=== PATIENT | female | born 1965 | race Caucasian/White ===

== ENCOUNTER 2017-11-02 01:15 | Observation (INO) ==
[2017-11-02] MEDS ORDERED: Acetaminophen 325 MG TABLET PO PRN (04:24)
[2017-11-02] MEDS ORDERED: Ondansetron ODT 4 MG TAB.RAPDIS SL PRN (04:24)
[2017-11-02] MEDS ORDERED: Naloxone 0.4 MG/ML INJ IVP PRN (04:24)
[2017-11-02] MEDS ORDERED: *HR* Dextrose 50 % in Water (Syg) 50 ML SYRINGE IVP PRN (04:28)
[2017-11-02] MEDS ORDERED: Dextrose Gel 15 GM/37.5 ML TUBE PO PRN ×2 (04:28)
[2017-11-02] MEDS ORDERED: D5% in Water 1,000 ML IVC PRN (04:28)
[2017-11-02] MEDS ORDERED: dilTIAZem HCl 100 MG in D5% in Water 50 ML IVC SCH (04:30)
[2017-11-02] MEDS ORDERED: *HR* OxyCODONE/APAP 10/325 TABLET PO PRN ×2 (04:37→09:23)
--- NOTE | 2017-11-02 04:41 | Internal Med History&Physical ---
<Nicanor Blum - Last Filed: 11/02/17 05:33> Date of Encounter: 11/02/17 Time of Encounter: 04:00 Assessment and Plan (1) Atrial fibrillation with RVR Current visit: Yes Status: Acute Pt has history of atrial fibrillation on Sotalol 80mg BID, patient reports she stopped taking 1 week ago. Initial troponin negative, trending. ECG shows afib with rvr average rate in the 140s prior to initiation of cardizem drip. Received loading dose and titration at [facility], continued at [facility] at 20mg/hr, currently heart rate in the low 100s. Continue Cardizem drip gtt 20mg/hr. Adding Toprol 25mg po daily. Continuing pt' s Xarelto 5mg BID. Consult to Cardiology appreciated. (2) Coronary artery disease Current visit: No Status: Acute TN/stent 3 years ago. Continue statin, asa, denies taking bb or aniyah-i. Qualifiers: Coronary Disease-Associated Artery/Lesion type: [place] artery [place] vs. transplanted heart: [place] heart Associated angina: without angina Qualified Code(s): I25.10 - Atherosclerotic heart disease of [place] coronary artery without angina pectoris (3) Diabetes mellitus Current visit: No Status: Chronic ACHS+SSI Qualifiers: Diabetes mellitus type: type 2 Diabetes mellitus complication status: with kidney complications Diabetes mellitus complication detail: with chronic kidney disease Diabetes mellitus marine oil terminal superintendent insulin use: with [facility] use Chronic kidney disease stage: stage 3 (moderate) Qualified Code(s): E11.22 - Type 2 diabetes mellitus with diabetic chronic kidney disease; N18.3 - Chronic kidney disease, stage 3 (moderate); N18.3 - Chronic kidney disease, stage 3 ( moderate); Z79.4 - skilled nursing (current) use of insulin; Z79.4 - skilled nursing ( current) use of insulin; Z79.4 - skilled nursing (current) use of insulin; Z79.4 - skilled nursing (current) use of insulin (4) Essential hypertension Current visit: No Status: Chronic Denies use of bb. Will start Toprol 25mg po daily. (5) DVT prophylaxis Current visit: Yes Status: Acute Taking Xarelto 5mg BID. Internal Medicine - H&P: HPI Chief complaint: Palpitations Admitted From: Emergency Dept Plans for Post Hospital Care: Home History of present illness: Ms. Bach is a 52 year old female limited historian who presents to [facility] as a [facility] transfer after experiencing chest tightness, jaw/back radiation and palpitations at home last night 11/01/17. Patient has a history of afib on Sotalol and Xarelto, HTN, CAD with TN/stenting placed 3 years ago, hypothyroidism, and insulin dependent type 2 diabetes. Initial troponin negative , ECG showed atrial fibrillation at a rate of 140s, Cardizem titrated to 15mg/ hr at [facility], continued upon transfer to [facility] (pt's follows Cardiology here), patient's heart rate has been in the low 100s on 20mg/hr. Pt states prior to this episode, she has been taking Sotalol 80mg BID. Stopped 1 week ago stating "I was told by a doctor my flutters could become afib." Currently patient reports milder symptoms of chest tightness and palpitations, no difficulty breathing, mild cough. Past Med Surg Social Fam HX - Past Medical History Medical history: arthritis, atrial fibrillation, CHF, COPD, coronary artery disease, diabetes, GERD, hyperlipidemia, hypertension, thyroid disease Psychiatric history: no psych history - Past Surgical History Surgical History: angioplasty/stent, cholecystectomy - Social History Smoking Status: Current every day smoker Smokeless Tobacco Status: No Alcohol use: none Drug use: none - Family History Mother Living Status: Hx Family Endocrine Disorder: Yes (DM) Father Living Status: Hx Family Respiratory Disorders: Yes (emphysema) Internal Medicine - H&P: Meds Aspirin 81 mg PO DAILY 09/13/16 [History] Atorvastatin [Lipitor] 40 mg PO HS 09/13/16 [History] Cholecalciferol (Vitamin D3) [Vitamin D3] 20,000 unit PO 2XW 09/13/16 [History] Cholestyramine 4 gm PO DAILY 09/13/16 [History] Furosemide [Lasix] 40 mg PO BID 09/13/16 [History] Gabapentin [Neurontin] 800 mg PO TID 09/13/16 [History] Levothyroxine [Synthroid] 25 mcg PO DAILY 09/13/16 [History] Magnesium Oxide [Magnesium] 250 mg PO DAILY 09/13/16 [History] [place]-3/Dha/Epa/Fish Oil [Fish Oil 1,000 mg Softgel] 1 each PO DAILY 09/13/16 [ History] Omeprazole [PriLOSEC] 40 mg PO BID 09/13/16 [History] Oxycodone HCl/Acetaminophen [Percocet 10-325 mg Tablet] 1 each PO BID PRN [History] amLODIPine [Norvasc] 5 mg PO DAILY 09/13/16 [History] Allopurinol [Zyloprim 100 MG] 100 mg PO DAILY 11/02/17 [History] Apixaban [Eliquis] 5 mg PO BID 11/02/17 [History] Dicyclomine [Bentyl] 10 mg PO BID 11/02/17 [History] Fluticasone/Vilanterol [Breo Ellipta 100-25 Mcg INH] 1 puff IH DAILY 11/02/17 [ History] Insulin Glargine [Lantus] 30 unit SQ HS 11/02/17 [History] Insulin LISPRO [HumaLOG] 10 units SQ TIDWM 11/02/17 [History] Potassium Chloride [Klor-Con 10] 10 meq PO BID 11/02/17 [History] hydroCHLOROthiazide [Hydrochlorothiazide] 25 mg PO DAILY 11/02/17 [History] 3 Allergy/AdvReac Type Severity Reaction Status Date / Time Penicillins [PCN] AdvReac Hives Verified 09/13/16 12:30 sulfamethoxazole AdvReac Hives Verified 09/13/16 12:30 [From Bactrim] trimethoprim [From Bactrim] AdvReac Hives Verified 09/13/16 12:30 All Systems PM: A 10-system review of systems was performed and is negative for pertinent findings except as documented above in the HPI. - Constitutional General appearance: Present: A&O X 3, no acute distress - Head Head exam: Present: atraumatic - Eye Eye exam: Present: EOMI - Respiratory Respiratory exam: Present: CTAB - Cardiovascular Cardiovascular exam: Present: irregular rhythm, tachycardia. Absent: JVD - Neurological Exam Neurological exam: Present: no focal deficits - Skin Skin exam: Absent: petechiae Internal Med - H&P Results - Labs CBC & Chem 7: 11/02/17 04:49 11/02/17 04:49 <Barry Montaño - Last Filed: 11/02/17 07:02> Date of Encounter: 01/10/18 Internal Medicine - H&P: HPI History of present illness: Ms. Bach is a 52 year old female All Systems PM: A 10-system review of systems was performed and is negative for pertinent findings except as documented above in the HPI. - Constitutional Vitals: Temp Pulse Resp BP Pulse Ox 97.6 F 96 22 144/74 89 11/02/17 05:31 11/02/17 05:31 11/02/17 05:31 11/02/17 05:31 11/02/17 05:31 Internal Med - H&P Results - Labs CBC & Chem 7: 11/02/17 04:49 11/02/17 04:49 Labs: Short CBC 11/02/17 Range/Units 04:49 WBC 10.1 (4.3-11.1) K/mcL Hgb 12.5 (11.5-15.4) g/dL Hct 39.0 (35.3-44.9) % Plt Count 330 (140-400) K/mcL Neutrophils # 5.6 (1.6-8.9) K/mcL BMP 11/02/17 04:49 Sodium 138 Potassium 4.8 Chloride 109 H Carbon Dioxide 25 BUN 33 H Creatinine 1.37 H Glucose 194 H Calcium 8.7 Cardiac Enzymes 11/02/17 Range/Units 04:35 Troponin I 0.03 (< 0.04) ng/mL - Attending Attestation I have seen and examined pt independently. I have discussed with Resident physician Dr Bulm regarding the management plan. Agree with the documentation.
[2017-11-02 05:06] LABS: Basophils # 0.1 K/mcL (0.0-0.2); Basophils % 0.6 %; Eosinophils # 0.2 K/mcL (0.0-0.6); Hemoglobin 12.5 g/dL (11.5-15.4); Immature Granulocytes % 0.7 % (0-4); Lymphocytes # 3.3 K/mcL (0.6-4.6); Lymphocytes % 32.1 %; Mean Corpuscular HGB Conc 32.1 g/dL (31.6-35.5); Mean Corpuscular Hemoglobin 28.9 pg (28.0-33.3); Mean Corpuscular Volume 90.3 fL (83.0-100.0); Monocytes # 0.9 K/mcL (0.0-1.3); Monocytes % 9.1 %; Neutrophils # 5.6 K/mcL (1.6-8.9); Platelet Count 330 K/mcL (140-400); Red Blood Count 4.32 M/mcL (3.82-4.97); Segmented Neutrophils % 55.5 %
[2017-11-02 05:19] LABS: Calcium 8.7 mg/dL (8.6-10.3); Magnesium 1.6 mg/dL (1.6-2.6); Potassium 4.8 mEq/L (3.5-5.1)
[2017-11-02 05:28] LABS: Hemoglobin A1C 9.5 %
[2017-11-02] MEDS: Insulin LISPRO 300 UNITS/3 ML VIAL SQ SCH ×3 (08:47→17:25)
[2017-11-02] MEDS: Aspirin 81 MG TAB.CHEW PO SCH (08:47)
[2017-11-02] MEDS ORDERED: Levothyroxine 25 MCG TABLET PO SCH ×2 (09:00→09:23)
[2017-11-02] MEDS: hydroCHLOROthiazide 25 MG TABLET PO SCH (10:12)
[2017-11-02] MEDS: Apixaban 5 MG TABLET PO SCH ×2 (10:12→20:57)
[2017-11-02] MEDS: amLODIPine 5 MG TABLET PO SCH (10:13)
[2017-11-02] MEDS: Gabapentin 400 MG CAPSULE PO SCH ×3 (10:13→20:57)
--- NOTE | 2017-11-02 11:16 | Cardiology Consult Note ---
<JumaGisell - Last Filed: 11/02/17 11:40> Date of Encounter: 11/02/17 Time of Encounter: 09:30 Assessment and Plan (1) Atrial fibrillation with RVR Current Visit: Yes Status: Acute Per cardiology: -Known PAF, recently PCP stopped sotalol. -Admitted with a.fib RVR. -On cardizem drip at 10mg/hour. -Currently SR, HR 70s at bedside. -Per review of previous records, has had issues with bradycardia. -On eliquis 5mg BID for anticoagulation, denies missed doses. -Will start cardizem CD 240mg daily. Will stop cardizem drip. -Of note, patient had an outpatient appt today to see EP, will re-schedule. (2) Chest pain Current Visit: Yes Status: Acute Per cardiology: -Patient reported chest pain when tachycardic. -Denies exertional chest pain. -Denies current chest pain. -NO acute ischemic ECG changes. -Troponin negative at [facility], negative x2 at [facility]. -Will check limited TTE. Qualifiers: Chest pain type: other chest pain Qualified Code(s): R07.89 - Other chest pain; R07.8 - Other chest pain (3) Coronary artery disease Current Visit: No Status: Chronic Per cardiology: -Known CAD with previous stenting 2011. -Denies current chest pain. Of note, reported chest pain when tachycardic. -ON asa, statin. Not on beta norma due to bradycardia. -Troponin negative x3. -PRevious TTE 01/2016 with LVEF 60%, no segmental wall motion abnormalities noted. -Will check limited TTE. -Can consider addition of beta norma if HR will tolerate. Qualifiers: Coronary Disease-Associated Artery/Lesion type: [place] artery [place] vs. transplanted heart: [place] heart Associated angina: without angina Qualified Code(s): I25.10 - Atherosclerotic heart disease of [place] coronary artery without angina pectoris Discussion w patient/family: The assessment and plan as outlined above was discussed with the patient who expressed understanding and agreement. All questions were answered. Thank you for involving us in the care of your patient. Please call with any questions. Discussed and reviewed with . History of Present Illness Consult date: 11/02/17 Requesting physician: Nicanor Blum Consult reason: a.fib RVR Chief complaint: high HR History of present illness: Ms. Bach is a 52 year old female with a relevant past medical history of DM, HTN, hyperlipidemia, CAD s/p stenting 2011, hepatitis B, PAF. Patient presented to [facility] due to chest pain, fluttering at home. Patient states she checked her HR at home and noted to be 160. Patient was transferred to [facility] for atrial fibrillation with RVR. Patient denies current chest pain, or fluttering. Patient reports was recently taken off of sotalol by her PCP. Patient states she is unsure why he stopped sotalol. Past Med Surg Social Fam HX - Past Medical History Attestation: Yes The following information was validated with the patient. Source: patient, old records reviewed Medical history: arthritis, atrial fibrillation, CHF, COPD, coronary artery disease, diabetes, GERD, hyperlipidemia, hypertension, thyroid disease Psychiatric history: no psych history - Past Surgical History Surgical History: angioplasty/stent, cholecystectomy - Social History Smoking Status: Current every day smoker Smokeless Tobacco Status: No Alcohol use: none Drug use: none - Family History Mother Living Status: Hx Family Endocrine Disorder: Yes (DM) Father Living Status: Hx Family Respiratory Disorders: Yes (emphysema) Medications and Allergies Aspirin 81 mg PO DAILY 09/13/16 [History] Atorvastatin [Lipitor] 40 mg PO HS 09/13/16 [History] Furosemide [Lasix] 40 mg PO BID 09/13/16 [History] Gabapentin [Neurontin] 800 mg PO TID 09/13/16 [History] Levothyroxine [Synthroid] 25 mcg PO DAILY 09/13/16 [History] [place]-3/Dha/Epa/Fish Oil [Fish Oil 1,000 mg Softgel] 1 each PO DAILY 09/13/16 [ History] Omeprazole [PriLOSEC] 40 mg PO BID 09/13/16 [History] Oxycodone HCl/Acetaminophen [Percocet 10-325 mg Tablet] 1 each PO BID PRN [History] amLODIPine [Norvasc] 10 mg PO DAILY 09/13/16 [History] Allopurinol [Zyloprim 100 MG] 100 mg PO DAILY 11/02/17 [History] Apixaban [Eliquis] 5 mg PO DAILY 11/02/17 [History] Dicyclomine [Bentyl] 10 mg PO BID 11/02/17 [History] Insulin Glargine [Lantus] 40 unit SQ HS 11/02/17 [History] Insulin LISPRO [HumaLOG] 10 units SQ TIDWM 11/02/17 [History] Potassium Chloride [Klor-Con 10] 10 meq PO BID 11/02/17 [History] hydroCHLOROthiazide [Hydrochlorothiazide] 25 mg PO DAILY 11/02/17 [History] 3 Allergy/AdvReac Type Severity Reaction Status Date / Time Penicillins [PCN] AdvReac Hives Verified 11/02/17 08:03 sulfamethoxazole AdvReac Hives Verified 11/02/17 08:03 [From Bactrim] trimethoprim [From Bactrim] AdvReac Hives Verified 11/02/17 08:03 All Systems Review: A 10-system review of systems was performed and is negative for pertinent findings except as documented above in the HPI. - Cardiovascular Cardiovascular: as per HPI, chest pain at rest, rapid heart rate Physical Examination Vital Signs, Last 4 Hours Temp Pulse Resp BP Pulse Ox 11/02/17 10:25 133/52 11/02/17 08:31 97.9 F 78 20 123/61 93 General: Conversant, No Apparent Distress HEENT: Atraumatic, Normocephaly, Mucus Membranes Moist Neck: No JVD, Normal carotid pulses Cardiac: Reg Rate and Rhythm, Normal S1 and S2, No Murmur Lungs: Normal Breath Sounds, No Wheeze, Rales, Rhonchi Neuro: Alert and responsive, No focal deficits noted Abdomen: Soft, Non-Tender Skin: No rashes noted on visualized skin Musculoskeletal: No Chest Wall Tenderness Extremities: No Clubbing, No Cyanosis, Normal Pulses, Other (Mild bilateral pedal edema, non-pitting. ) Results 11/02/17 04:49 11/02/17 04:49 Lab Results Active Medications Acetaminophen (Tylenol) 650 mg PO Q6HR PRN PRN Reason: Mild Pain (1-3) Stop: 05/04/18 04:25 Amlodipine Besylate (Norvasc) 5 mg PO DAILY [facility] PRN Reason: Protocol Stop: 05/04/18 09:01 Last Admin: 11/02/17 10:13 Dose: 5 mg Apixaban (Eliquis) 5 mg PO BID [facility] Stop: 05/04/18 09:01 Last Admin: 11/02/17 10:12 Dose: 5 mg Aspirin (Aspirin) 81 mg PO DAILY [facility] Stop: 05/04/18 09:01 Last Admin: 11/02/17 08:47 Dose: 81 mg Atorvastatin Calcium (Lipitor) 40 mg PO HS [facility] Stop: 05/04/18 21:01 Dextrose/Water (Dextrose 50% (Syg)) 25 ml IVP AD PRN PRN Reason: Hypoglycemia Stop: 05/04/18 04:29 Diltiazem HCl (Cardizem Cd) 240 mg PO DAILY [facility] Stop: 05/04/18 10:31 Gabapentin (Neurontin) 800 mg PO TID [facility] Stop: 05/04/18 09:01 Last Admin: 11/02/17 10:13 Dose: 800 mg Glucagon (Glucagen) 1 mg IM ONCE PRN PRN Reason: Hypoglycemia Stop: 05/04/18 04:29 Glucose (Gluctose) 15 gm PO ONCE PRN PRN Reason: Hypoglycemia Stop: 05/04/18 04:29 Glucose (Gluctose) 30 gm PO ONCE PRN PRN Reason: Hypoglycemia Stop: 05/04/18 04:29 Hydrochlorothiazide (Hydrochlorothiazide) 25 mg PO DAILY [facility] PRN Reason: Protocol Stop: 05/04/18 09:01 Last Admin: 11/02/17 10:12 Dose: 25 mg Dextrose (Dextrose 5%) 1,000 mls @ 100 mls/hr IVC .Q10H PRN PRN Reason: HYPOGLYCEMIA Stop: 05/04/18 04:29 Insulin Detemir (Levemir) 30 unit SQ HS [facility] Stop: 05/04/18 21:01 Insulin Human Lispro (Humalog) 0 units SQ HS [facility] PRN Reason: Protocol Stop: 05/04/18 21:01 Insulin Human Lispro (Humalog) 0 units SQ TIDAC [facility] PRN Reason: Protocol Stop: 05/04/18 07:31 Last Admin: 11/02/17 08:47 Dose: Not Given Levothyroxine Sodium (Synthroid) 25 mcg PO DAILY@0630 [facility] Stop: 05/04/18 09:24 Last Admin: 11/02/17 10:13 Dose: 25 mcg Naloxone HCl (Narcan) 0.4 mg IVP Q2MIN PRN PRN Reason: Opioid Reversal Stop: 05/04/18 04:25 Omeprazole (Prilosec) 40 mg PO BID [facility] Stop: 05/04/18 09:01 Last Admin: 11/02/17 08:47 Dose: 40 mg Ondansetron HCl (Zofran Odt) 4 mg SL Q8HR PRN PRN Reason: Nausea And Vomiting Stop: 05/04/18 04:25 Oxycodone/Acetaminophen (Percocet 10/325) 1 each PO BID PRN PRN Reason: Moderate to Severe Pain (4-10) Stop: 05/04/18 04:38 Laboratory Tests 11/02/17 11/02/17 11/02/17 04:35 04:49 04:49 Hgb 12.5 Potassium 4.8 Creatinine 1.37 H Magnesium 1.6 Troponin I 0.03 11/02/17 10:44 Hgb Potassium Creatinine Magnesium Troponin I < 0.03 - Imaging and Cardiology Chest Xray: report reviewed Echo: pending, report reviewed - EKG Interpretation EKG results cardiology: personally reviewed (ECG with atrial fibrillation RVR, HR 140.), other (Per telemetry, SR at bedside. HR 70s.) Consult Discharge Plan - Plan Referrals: Aviva Lewis, ENTRY ENGINEER [Primary Care Provider] - <Manas Rajan - Last Filed: 11/02/17 16:22> Date of Encounter: 11/02/17 - Attending Attestation I have personally performed a face to face evaluation on this patient. I have reviewed and agree with the care plan. History and Exam by me shows: 52 YOF with h/o CAD stent in 2011, PAF taken off sotalol for bradycardia presents with afib RVR CP described with palpitations Possible SSS according to history obtained Continue rate control and evaluate for ischemia (NST) as possible culprit for difficult Afib Attempt amiodarone PO prior to DC Patient has appt with EP as an OP Continue Eliquis for stroke risk reduction Assessment and Plan Discussion w patient/family: The assessment and plan as outlined above was discussed with the patient and/or family members who expressed understanding and agreement. All questions were answered. Thank you for involving us in the care of your patient. Please call with any questions. History of Present Illness History of present illness: Ms. Bach is a 52 year old female All Systems Review: A 10-system review of systems was performed and is negative for pertinent findings except as documented above in the HPI. Results 11/02/17 04:49 11/02/17 04:49 Lab Results 11/02/17 11/02/17 11/02/17 04:35 04:49 04:49 WBC 10.1 Hgb 12.5 Hct 39.0 Plt Count 330 Sodium 138 Potassium 4.8 Chloride 109 H Carbon Dioxide 25 BUN 33 H Creatinine 1.37 H Glucose 194 H Calcium 8.7 Magnesium 1.6 Troponin I 0.03 11/02/17 10:44 WBC Hgb Hct Plt Count Sodium Potassium Chloride Carbon Dioxide BUN Creatinine Glucose Calcium Magnesium Troponin I < 0.03
[2017-11-02] MEDS: Diltiazem CD (24hr) 240 MG CAPSULE PO SCH ×2 (12:18→12:41)
--- NOTE | 2017-11-02 13:29 | Electrocardiograph Report ---
[place] [id number] Test Date: 2017-11-02 Pat Name: Radha Bach Department: 103 Room: [facility] Gender: F Strip Cleaner: ARSENIO : 1965 Requested By: Graham Lucas Order Number: [id number] Reading MD: Jan Polanco Measurements Intervals [employer] Rate: 67 P: 0 WI: 154 QRS: -29 QRSD: 94 T: 103 QT: 433 QTc: 449 Interpretive Statements SINUS RHYTHM BORDERLINE LEFT AXIS DEVIATION NONSPECIFIC ST & T-WAVE ABNORMALITY Electronically Signed On 11-02-2017 13:28:03 EST by Jan Polanco
[2017-11-02] MEDS ORDERED: Insulin DETEMIR 100 UNIT/ML X5UNITS SQ ONE (14:52)
[2017-11-02] MEDS ORDERED: Insulin LISPRO 300 UNITS/3 ML VIAL SQ SCH (21:00)
[2017-11-02] MEDS ORDERED: Insulin DETEMIR 100 UNIT/ML X5UNITS SQ SCH (21:00)
[2017-11-02] MEDS: Nicotine 21 MG PATCH.TD24 TD SCH (21:58)
[2017-11-02] MEDS: Ipratropium/Albuterol Neb 3 ML IH SCH (23:35)
[2017-11-03] MEDS: Ipratropium/Albuterol Neb 3 ML IH SCH ×3 (03:36→11:10)
[2017-11-03] MEDS: Insulin LISPRO 300 UNITS/3 ML VIAL SQ SCH ×2 (08:57→11:47)
[2017-11-03] MEDS: amLODIPine 5 MG TABLET PO SCH (08:58)
[2017-11-03] MEDS: hydroCHLOROthiazide 25 MG TABLET PO SCH (08:59)
[2017-11-03] MEDS: Nicotine 21 MG PATCH.TD24 TD SCH (08:59)
[2017-11-03] MEDS: Gabapentin 400 MG CAPSULE PO SCH (08:59)
[2017-11-03] MEDS: Aspirin 81 MG TAB.CHEW PO SCH (08:59)
[2017-11-03] MEDS: Apixaban 5 MG TABLET PO SCH (08:59)
[2017-11-03] MEDS: Diltiazem CD (24hr) 240 MG CAPSULE PO SCH (09:12)
[2017-11-03 11:21] VITALS: BP 151/79
--- NOTE | 2017-11-03 14:01 | Cardiology Progress Note ---
Date of Encounter: 11/03/17 Time of Encounter: 13:30 Assessment and Plan (1) Atrial fibrillation with RVR Current Visit: Yes Status: Acute Per cardiology: -Known PAF, recently PCP stopped sotalol. -Now on cardizem CD 240mg daily. -Admitted with a.fib RVR. -Average HR 70, sinus rhythm. -Per review of previous records, has had issues with bradycardia. -On eliquis 5mg BID for anticoagulation, denies missed doses. -Cardiology will sign off and will follow in outpatient setting. (2) Chest pain Current Visit: Yes Status: Acute Per cardiology: -Patient reported chest pain when tachycardic. -Denies exertional chest pain. -Denies current chest pain. -NO acute ischemic ECG changes. -Troponin negative at [facility], negative x3 at [facility]. -TTE with LVEF 70, no segmental wall motion abnormalities. - had recommended stress test, spoke with who stated stress could be done as outpatient. Qualifiers: Chest pain type: other chest pain Qualified Code(s): R07.89 - Other chest pain; R07.8 - Other chest pain (3) Coronary artery disease Current Visit: No Status: Chronic Per cardiology: -Known CAD with previous stenting 2011. -Denies current chest pain. Of note, reported chest pain when tachycardic. -ON asa, statin. Not on beta norma due to bradycardia. -Troponin negative x3. -PRevious TTE 01/2016 with LVEF 60%, no segmental wall motion abnormalities noted. -TTE this admission with LVEF 70, no segmental wall motion abnormalities. -Will continue to follow in outpatient setting. Qualifiers: Coronary Disease-Associated Artery/Lesion type: [place] artery [place] vs. transplanted heart: [place] heart Associated angina: without angina Qualified Code(s): I25.10 - Atherosclerotic heart disease of [place] coronary artery without angina pectoris Discussion w patient/family: The assessment and plan as outlined above was discussed with the patient who expressed understanding and agreement. All questions were answered. Thank you for involving us in the care of your patient. Please call with any questions. Discussed and reviewed with . Subjective Principal diagnosis: a.fib Interval history: Patient states she feels better today. Denies chest pain. Denies palpitations or fluttering. Objective Vital Signs, Last 4 Hours Temp Pulse Resp BP Pulse Ox 11/03/17 11:20 98.0 F 78 18 151/79 100 11/03/17 11:11 18 94 General: Conversant, No Apparent Distress HEENT: Atraumatic, Normocephaly, Mucus Membranes Moist Neck: No JVD, Normal carotid pulses Cardiac: Reg Rate and Rhythm, Normal S1 and S2, No Murmur Lungs: Normal Breath Sounds, No Wheeze, Rales, Rhonchi Neuro: Alert and responsive, No focal deficits noted Abdomen: Soft, Non-Tender Skin: No rashes noted on visualized skin Musculoskeletal: No Chest Wall Tenderness Extremities: No Clubbing, No Cyanosis, No Edema, Normal Pulses Results 11/02/17 04:49 11/02/17 04:49 Lab Results Impressions Echocardiogram Limited Views 11/02/17 11:33 Impressions: LVEF 70%. Normal LV chamber size, wall thickness and function. Left Ventricular Wall Motion: Rest Echo Findings All wall segments showed normal motion. Findings: Study Quality * Technically adequate exam. ECG Findings * Normal sinus rhythm. Left Ventricle * LVEF 70%. * Normal LV chamber size, wall thickness and function. Right Ventricle * Normal right ventricular structure and function. Aorta * Normally sized aortic root. Pericardium * The pericardium appears normal. IVC * Normal IVC dimensions and inspiratory collapse. Active Medications Acetaminophen (Tylenol) 650 mg PO Q6HR PRN PRN Reason: Mild Pain (1-3) Stop: 05/04/18 04:25 Albuterol/Ipratropium (Duoneb) 3 ml IH [id number] [facility] Stop: 05/05/18 00:01 Last Admin: 11/03/17 11:10 Dose: 3 ml Amlodipine Besylate (Norvasc) 5 mg PO DAILY [facility] PRN Reason: Protocol Stop: 05/04/18 09:01 Last Admin: 11/03/17 08:58 Dose: 5 mg Apixaban (Eliquis) 5 mg PO BID [facility] Stop: 05/04/18 09:01 Last Admin: 11/03/17 08:59 Dose: 5 mg Aspirin (Aspirin) 81 mg PO DAILY [facility] Stop: 05/04/18 09:01 Last Admin: 11/03/17 08:59 Dose: 81 mg Atorvastatin Calcium (Lipitor) 40 mg PO HS [facility] Stop: 05/04/18 21:01 Last Admin: 11/02/17 20:57 Dose: 40 mg Dextrose/Water (Dextrose 50% (Syg)) 25 ml IVP AD PRN PRN Reason: Hypoglycemia Stop: 05/04/18 04:29 Diltiazem HCl (Cardizem Cd) 240 mg PO DAILY [facility] Stop: 05/04/18 10:31 Last Admin: 11/03/17 09:12 Dose: 240 mg Gabapentin (Neurontin) 800 mg PO TID [facility] Stop: 05/04/18 09:01 Last Admin: 11/03/17 08:59 Dose: 800 mg Glucagon (Glucagen) 1 mg IM ONCE PRN PRN Reason: Hypoglycemia Stop: 05/04/18 04:29 Glucose (Gluctose) 15 gm PO ONCE PRN PRN Reason: Hypoglycemia Stop: 05/04/18 04:29 Glucose (Gluctose) 30 gm PO ONCE PRN PRN Reason: Hypoglycemia Stop: 05/04/18 04:29 Hydrochlorothiazide (Hydrochlorothiazide) 25 mg PO DAILY [facility] PRN Reason: Protocol Stop: 05/04/18 09:01 Last Admin: 11/03/17 08:59 Dose: 25 mg Dextrose (Dextrose 5%) 1,000 mls @ 100 mls/hr IVC .Q10H PRN PRN Reason: HYPOGLYCEMIA Stop: 05/04/18 04:29 Insulin Detemir (Levemir) 30 unit SQ HS [facility] Stop: 05/04/18 21:01 Last Admin: 11/02/17 20:57 Dose: 30 unit Insulin Human Lispro (Humalog) 0 units SQ HS [facility] PRN Reason: Protocol Stop: 05/04/18 21:01 Last Admin: 11/02/17 20:58 Dose: 4 units Insulin Human Lispro (Humalog) 0 units SQ TIDAC [facility] PRN Reason: Protocol Stop: 05/04/18 07:31 Last Admin: 11/03/17 11:47 Dose: 8 units Levothyroxine Sodium (Synthroid) 25 mcg PO DAILY@0630 [facility] Stop: 05/04/18 09:24 Last Admin: 11/02/17 10:13 Dose: 25 mcg Loperamide HCl (Imodium) 2 mg PO Q6HR PRN PRN Reason: Diarrhea Stop: 05/05/18 08:52 Naloxone HCl (Narcan) 0.4 mg IVP Q2MIN PRN PRN Reason: Opioid Reversal Stop: 05/04/18 04:25 Nicotine (Nicoderm) 21 mg TD DAILY [facility] PRN Reason: Protocol Stop: 05/04/18 21:46 Last Admin: 11/03/17 08:59 Dose: 21 mg Omeprazole (Prilosec) 40 mg PO BID [facility] Stop: 05/04/18 09:01 Last Admin: 11/03/17 08:58 Dose: 40 mg Ondansetron HCl (Zofran Odt) 4 mg SL Q8HR PRN PRN Reason: Nausea And Vomiting Stop: 05/04/18 04:25 Oxycodone/Acetaminophen (Percocet 10/325) 1 each PO BID PRN PRN Reason: Moderate to Severe Pain (4-10) Stop: 05/04/18 04:38 Last Admin: 11/02/17 22:01 Dose: 1 each Laboratory Tests 11/02/17 11/02/17 11/02/17 04:35 04:49 04:49 Hgb 12.5 Creatinine 1.37 H Troponin I 0.03 11/02/17 11/02/17 10:44 16:40 Hgb Creatinine Troponin I < 0.03 < 0.03 - Imaging and Cardiology Chest Xray: report reviewed Echo: report reviewed - EKG Interpretation EKG results cardiology: other (Telemetry reviewed with average HR previous 12 hours noted to be 70, sinus rhythm. PVCs and PACs noted.) Consult Discharge Plan - Plan Referrals: Aviva Lewis CNP [Primary Care Provider] - 11/10/17 1:00 pm
--- NOTE | 2017-11-03 14:21 | Internal Med Progress Note ---
Date of Encounter: 11/02/17 Time of Encounter: 17:00 - Assessment and plan (1) Atrial fibrillation with RVR Status: Acute Assessment and plan: Patient has history of atrial fibrillation, has been on anticoagulation and Sotalol at home. Sotalol has recently been discontinued during her hospitalization. Started on IV Cardizem drip in the emergency room, currently weaned off. Cardiology evaluation appreciated, started oral Cardizem CD. Continue telemetry monitoring, check echocardiogram. Continue anticoagulation with Xarelto. (2) COPD (chronic obstructive pulmonary disease) Status: Chronic Assessment and plan: Not noted to be in acute exacerbation. Continue when necessary bronchodilators and supplemental oxygen. Qualifiers: COPD type: unspecified COPD Qualified Code(s): J44.9 - Chronic obstructive pulmonary disease, unspecified (3) CKD (chronic kidney disease) Status: Chronic Assessment and plan: Serum creatinine noted to be stable. Qualifiers: Chronic kidney disease stage: stage 3 (moderate) Qualified Code(s): N18.3 - Chronic kidney disease, stage 3 (moderate) (4) Coronary artery disease Status: Chronic Qualifiers: Coronary Disease-Associated Artery/Lesion type: [place] artery [place] vs. transplanted heart: [place] heart Associated angina: without angina Qualified Code(s): I25.10 - Atherosclerotic heart disease of [place] coronary artery without angina pectoris (5) Essential hypertension Status: Chronic (6) Tobacco abuse disorder Status: Chronic (7) Diabetes mellitus Status: Chronic Assessment and plan: Blood sugars noted to be elevated in the emergency room. Start basal insulin and continue Accu-Chek blood glucose monitoring with sliding scale insulin. Diabetic diet. Qualifiers: Diabetes mellitus type: type 2 Diabetes mellitus complication status: with kidney complications Diabetes mellitus complication detail: with chronic kidney disease Diabetes mellitus residential insulin use: with termite control technician use Chronic kidney disease stage: stage 3 (moderate) Qualified Code(s): E11.22 - Type 2 diabetes mellitus with diabetic chronic kidney disease; N18.3 - Chronic kidney disease, stage 3 (moderate); N18.3 - Chronic kidney disease, stage 3 ( moderate); Z79.4 - termite control technician (current) use of insulin; Z79.4 - termite control technician ( current) use of insulin; Z79.4 - termite control technician (current) use of insulin; Z79.4 - skilled nursing (current) use of insulin (8) Hypothyroidism Status: Chronic Qualifiers: Hypothyroidism type: unspecified Qualified Code(s): E03.9 - Hypothyroidism , unspecified (9) CHF (congestive heart failure) Status: Chronic Qualifiers: Congestive heart failure type: unspecified Congestive heart failure chronicity: chronic Qualified Code(s): I50.9 - Heart failure, unspecified - Subjective Interval history: Feels better; improved chest discomfort, palpitations, dyspnea; no fever, cough ; off IV Cardizem drip now; - Constitutional Vitals: Temp Pulse Resp BP Pulse Ox 98.0 F 78 18 151/79 100 11/03/17 11:20 11/03/17 11:20 11/03/17 11:20 11/03/17 11:20 11/03/17 11:20 General appearance: Present: A&O X 3, answers questions appropriately - Respiratory Respiratory exam: Present: CTAB. Absent: accessory muscle use, rales, rhonchi, wheezes - Cardiovascular Cardiovascular exam: Present: RRR, +S1, +S2. Absent: diastolic murmur, gallop, rubs, systolic murmur - GI/Abdominal GI/Abdominal exam: Present: normal bowel sounds, soft, no peritoneal signs. Absent: distended, tenderness Internal Medicine: Result - Labs CBC & Chem 7: 11/02/17 04:49 11/02/17 04:49 Labs: Cardiac Enzymes 11/02/17 Range/Units 16:40 Troponin I < 0.03 (< 0.04) ng/mL - Impressions Impressions Echocardiogram Limited Views 11/02/17 11:33 Impressions: LVEF 70%. Normal LV chamber size, wall thickness and function. Left Ventricular Wall Motion: Rest Echo Findings All wall segments showed normal motion. Findings: Study Quality * Technically adequate exam. ECG Findings * Normal sinus rhythm. Left Ventricle * LVEF 70%. * Normal LV chamber size, wall thickness and function. Right Ventricle * Normal right ventricular structure and function. Aorta * Normally sized aortic root. Pericardium * The pericardium appears normal. IVC * Normal IVC dimensions and inspiratory collapse. Consult Discharge Plan - Plan Instructions: Diltiazem (By mouth), Apixaban (By mouth), Atrial Fibrillation ( DC) Additional Instructions: F/up with Cardiology as outpatient, as scheduled; Referrals: Aviva Lewis CNP [Primary Care Provider] - 11/10/17 1:00 pm Nikolay Natarajan CNP [Advanced Practice Nurse] - 11/25/17 8:00 am ([facility]) Jan Polanco MD [Partnered Physician] - 11/16/17 10:40 am ([facility]) Prescriptions: Diltiazem CD (24hr) [Cardizem CD] 240 mg PO DAILY #30 cap.er.24h
--- NOTE | 2017-11-03 14:23 | Discharge Summary ---
Date of Encounter: 11/03/17 Time of Encounter: 10:00 - Discharge Diagnosis (1) Atrial fibrillation with RVR Priority: Primary Status: Acute (2) Hypothyroidism Priority: Secondary Status: Chronic Qualifiers: Hypothyroidism type: unspecified Qualified Code(s): E03.9 - Hypothyroidism , unspecified (3) CHF (congestive heart failure) Priority: Secondary Status: Chronic Qualifiers: Congestive heart failure type: unspecified Congestive heart failure chronicity: chronic Qualified Code(s): I50.9 - Heart failure, unspecified (4) Morbid obesity with BMI of 40.0-44.9, adult Priority: Secondary Status: Chronic (5) Tobacco abuse disorder Priority: Secondary Status: Chronic (6) Coronary artery disease Priority: Secondary Status: Chronic Qualifiers: Coronary Disease-Associated Artery/Lesion type: [place] artery [place] vs. transplanted heart: [place] heart Associated angina: without angina Qualified Code(s): I25.10 - Atherosclerotic heart disease of [place] coronary artery without angina pectoris (7) Diabetes mellitus Priority: Secondary Status: Chronic Qualifiers: Diabetes mellitus type: type 2 Diabetes mellitus complication status: with kidney complications Diabetes mellitus complication detail: with chronic kidney disease Diabetes mellitus terminal operations supervisor insulin use: with terminal operations supervisor use Chronic kidney disease stage: stage 3 (moderate) Qualified Code(s): E11.22 - Type 2 diabetes mellitus with diabetic chronic kidney disease; N18.3 - Chronic kidney disease, stage 3 (moderate); N18.3 - Chronic kidney disease, stage 3 ( moderate); Z79.4 - terminal operations supervisor (current) use of insulin; Z79.4 - terminal operations supervisor ( current) use of insulin; Z79.4 - terminal operations supervisor (current) use of insulin; Z79.4 - senior living (current) use of insulin (8) Essential hypertension Priority: Secondary Status: Chronic - Discharge Medications Prescriptions: Diltiazem CD (24hr) [Cardizem CD] 240 mg PO DAILY #30 cap.er.24h Home Medications: Aspirin 81 mg PO DAILY 09/13/16 [History] Atorvastatin [Lipitor] 40 mg PO HS 09/13/16 [History] Furosemide [Lasix] 40 mg PO BID 09/13/16 [History] Gabapentin [Neurontin] 800 mg PO TID 09/13/16 [History] Levothyroxine [Synthroid] 25 mcg PO DAILY 09/13/16 [History] [place]-3/Dha/Epa/Fish Oil [Fish Oil 1,000 mg Softgel] 1 each PO DAILY 09/13/16 [ History] Omeprazole [PriLOSEC] 40 mg PO BID 09/13/16 [History] Oxycodone HCl/Acetaminophen [Percocet 10-325 mg Tablet] 1 each PO BID PRN [History] amLODIPine [Norvasc] 10 mg PO DAILY 09/13/16 [History] Allopurinol [Zyloprim 100 MG] 100 mg PO DAILY 11/02/17 [History] Apixaban [Eliquis] 5 mg PO DAILY 11/02/17 [History] Dicyclomine [Bentyl] 10 mg PO BID 11/02/17 [History] Insulin Glargine [Lantus] 40 unit SQ HS 11/02/17 [History] Insulin LISPRO [HumaLOG] 10 units SQ TIDWM 11/02/17 [History] Potassium Chloride [Klor-Con 10] 10 meq PO BID 11/02/17 [History] hydroCHLOROthiazide [Hydrochlorothiazide] 25 mg PO DAILY 11/02/17 [History] Cholestyramine PO 11/03/17 [History] Diltiazem CD (24hr) [Cardizem CD] 240 mg PO DAILY #30 cap.er.24h 11/03/17 [Rx] Allergies/Adverse Reactions: 3 Allergy/AdvReac Type Severity Reaction Status Date / Time Penicillins [PCN] AdvReac Hives Verified 11/02/17 08:03 sulfamethoxazole AdvReac Hives Verified 11/02/17 08:03 [From Bactrim] trimethoprim [From Bactrim] AdvReac Hives Verified 11/02/17 08:03 Procedures/tests Complete & Pending: Procedures Performed prior 72 hours Category Date Time Status EKG [ECG 12 lead ECG] [ECG] Routine Y 11/02/17 08:55 Completed EV limited echocardiogram Routine Y 11/02/17 11:33 Completed Date of admission: 11/02/17 02:26 Primary care physician: Aviva Lewis, Consults: 11/02/17 05:34 Consult to Cardiology [CONS] Routine Comment: Consulting Provider: [facility] [place] Reason for Consult: afib-rvr, on cardizem 20mg/hr; noncompliance with sotalol 80mg BID Call Completed: No Discharging clinician: Bhavna Lan Anticipated date of discharge: 11/03/17 - Patient Status Disposition: Home, Self-Care Condition: Good Functional capacity at discharge: independent ambulation Overall status at discharge: patient is progressing back to baseline - Discharge Instructions Instructions: Diltiazem (By mouth), Apixaban (By mouth), Atrial Fibrillation ( DC) Follow Up With: Aviva Lewis CNP [Primary Care Provider] - 11/10/17 1:00 pm Nikolay Natarajan CNP [Advanced Practice Nurse] - 11/25/17 8:00 am ([facility]) Jan Polanco MD [Partnered Physician] - 11/16/17 10:40 am ([facility]) Additional Instructions: F/up with Cardiology as outpatient, as scheduled; - Diet and Activity Activity: resume usual activities as tolerated, wear oxygen at all times Diet: diabetic diet, low fat, low cholesterol, low salt diet Hospital course: Ms. Bach is a 52 year old female with the above medical problems, who was admitted with chest pain and palpitations. Patient was noted to be in atrial fibrillation with rapid ventricular response. She does have a history of atrial fibrillation and has been on sotalol at home, which was recently discontinued during the hospitalization for unclear reasons. She was started on IV Cardizem drip with appropriate heart rate control. Cardiology was consulted and patient was started on oral Cardizem CD with good heart rate control. She is noted to be on long-term anticoagulation with Eliquis, which was continued. Echocardiogram was done which showed no gross structural abnormality, ejection fraction was noted to be around 70%. Patient is currently medically stable for discharge with outpatient EP cardiology follow-up. - Time Spent with Patient Total time spent providing and/or coordinating discharge services: Greater than 30 minutes (40 min) - Constitutional Vitals: Temp Pulse Resp BP Pulse Ox 98.0 F 78 18 151/79 100 11/03/17 11:20 11/03/17 11:20 11/03/17 11:20 11/03/17 11:20 11/03/17 11:20 General appearance: Present: A&O X 3, no acute distress - Cardiovascular Cardiovascular exam: Present: RRR, +S1, +S2. Absent: diastolic murmur, gallop, rubs, systolic murmur
== END 2017-11-03 15:32 | disposition home or self-care (01) ==
LOC: 2ANU
PROVIDERS: ADMIT Internal Medicine; ATTEND Internal Medicine

== ENCOUNTER 2019-07-01 15:15 | Inpatient (IN) ==
[2019-07-01] MEDS ORDERED: Ondansetron 4 MG/2 ML VIAL IVP ONE (15:25)
[2019-07-01] MEDS ORDERED: Ipratropium/Albuterol Neb 3 ML IH ONE (15:25)
[2019-07-01] MEDS ORDERED: Nitroglycerin 0.4 MG TAB.SUBL SL PRN (15:25)
--- NOTE | 2019-07-01 15:30 | Emergency Department Note ---
Disposition Clinical Impression: Chest pain Qualifiers: Chest pain type: unspecified Qualified Code(s): R07.9 - Chest pain, unspecified COPD (chronic obstructive pulmonary disease) Qualifiers: COPD type: unspecified COPD Qualified Code(s): J44.9 - Chronic obstructive pulmonary disease, unspecified Diabetes Qualifiers: Diabetes mellitus type: type 2 Diabetes mellitus exterminator termite insulin use: without longterm use Diabetes mellitus complication status: with other specified complication Qualified Code(s): E11.69 - Type 2 diabetes mellitus with other specified complication Pneumonia Qualifiers: Pneumonia type: due to unspecified organism Laterality: unspecified laterality Lung location: unspecified part of lung Qualified Code(s): J18.9 - Pneumonia, unspecified organism Disposition: Admitted As Inpatient Forms: ED Satisfaction Letter Time of Disposition: 16:37 Chest Pain HPI - General Chief Complaint: ED Chest Pain Stated Complaint: Chest Pain Time Seen by Provider: 07/01/19 15:16 Source: patient Mode of arrival: ambulatory Limitations: no limitations Vital Signs Reviewed: Yes Nursing Notes Reviewed: Yes - History of Present Illness HPI Narrative: 54F with PMHx of COPD, DM, CAD with 1 stent placed in 2011 presents emergency Department with a chief complaint of chest pain. Patient states the chest pain woke her from sleep at approximately 9:30 this morning as been constant since onset. Patient states she was seen at [facility] earlier today and they wanted to transfer her to [facility] for further cardiac workup after initial negative studies. 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 She has taken nitroglycerin earlier which has not improved her chest pressure. She does have increased difficulty breathing. She describes the pressure as sternal pressure that sometimes radiates into her scapula and up into her jaw. She feels nauseous and has vomited today. She states this feels exactly the same as when she had her stent placed the last time. Severity scale (1-10): 10 - Related Data Home Medications Medication Instructions Recorded Confirmed Aspirin 81 mg PO DAILY 09/13/16 02/15/19 Atorvastatin [Lipitor] 40 mg PO HS 09/13/16 02/15/19 Furosemide [Lasix] 40 mg PO BID 09/13/16 02/15/19 Gabapentin [Neurontin] 800 mg PO TID 09/13/16 02/15/19 Levothyroxine [Synthroid] 25 mcg PO DAILY 09/13/16 02/15/19 [place]-3/Dha/Epa/Fish Oil [Fish Oil 1 each PO DAILY 09/13/16 02/15/19 1,000 mg Softgel] Omeprazole [PriLOSEC] 40 mg PO BID 09/13/16 02/15/19 Oxycodone HCl/Acetaminophen 1 each PO BID PRN 09/13/16 02/15/19 [Percocet 10-325 mg Tablet] amLODIPine [Norvasc] 10 mg PO DAILY 09/13/16 02/15/19 Allopurinol [Zyloprim 100 MG] 100 mg PO DAILY 11/02/17 02/15/19 Apixaban [Eliquis] 5 mg PO DAILY 11/02/17 02/15/19 Dicyclomine [Bentyl] 10 mg PO BID 11/02/17 02/15/19 Insulin Glargine [Lantus] 40 unit SQ HS 11/02/17 02/15/19 Insulin LISPRO [HumaLOG] 10 units SQ TIDWM 11/02/17 02/15/19 Potassium Chloride [Klor-Con 10] 10 meq PO BID 11/02/17 02/15/19 hydroCHLOROthiazide 25 mg PO DAILY 11/02/17 02/15/19 [Hydrochlorothiazide] Cholestyramine 15 mg PO DAILY 11/03/17 02/15/19 Previous Rx's Medication Instructions Recorded Diltiazem CD (24hr) [Cardizem CD] 240 mg PO DAILY #30 cap.er.24h 11/03/17 Sucralfate [Carafate] 1 gm PO QIDAC #20 tablet 02/15/19 Doxycycline 100 mg PO BID #14 capsule 04/06/19 Allergies Allergy/AdvReac Type Severity Reaction Status Date / Time Penicillins [PCN] AdvReac Hives Verified 04/06/19 11:30 sulfamethoxazole AdvReac Hives Verified 04/06/19 11:30 [From Bactrim] trimethoprim [From Bactrim] AdvReac Hives Verified 03/23/19 13:04 All systems ED: reviewed and negative except as stated. Review of Systems: As Per HPI Constitutional: Denies: fever, chills, weakness Cardiovascular: Reports: chest pain, dyspnea on exertion. Denies: palpitations Respiratory: Reports: cough, dyspnea, wheezes. Denies: sputum production Gastrointestinal: Reports: nausea, vomiting. Denies: abdominal pain Musculoskeletal: Reports: back pain. Denies: neck pain Endocrine: Denies: fatigue Chest Pain PMH - Past Medical History Medical history: Reports: arthritis, atrial fibrillation, COPD, coronary artery disease, diabetes, GERD, hypertension Surgical history: Reports: angioplasty/stent, cholecystectomy Psychiatric history: Reports: no psych history - Social History Smoking Status: Current every day smoker Alcohol use: Reports: none Drug use: Reports: none Physical Exam - General Limitations: no limitations General appearance: alert, anxious - Head Head exam: atraumatic, normocephalic - Eye Eye exam: Present: normal appearance, EOMI - Chest Chest inspection: Present: normal inspection. Absent: tenderness, rash - Respiratory Respiratory exam: Present: wheezes. Absent: respiratory distress - Cardiovascular Cardiovascular exam: Present: regular rate, normal rhythm - Abdominal Exam Abdominal exam: Present: soft, tenderness. Absent: distention, guarding, rebound, rigidity Abdominal tenderness: Present: epigastrium, mild - Extremities Exam Extremities exam: Present: normal inspection. Absent: tenderness, pedal edema - Neurological Exam Neurological exam: Present: alert, oriented X3 - Psychiatric Psychiatric exam: Present: normal affect, normal mood - Skin Skin exam: Present: warm, dry, intact Course Vital Signs Temperature 98.4 F 07/01/19 15:22 Pulse Rate 59 07/01/19 15:22 Respiratory Rate 15 07/01/19 15:22 Blood Pressure 107/61 07/01/19 15:22 O2 Sat by Pulse Oximetry 96 07/01/19 15:22 Temperature 98.4 F 07/01/19 15:22 Pulse Rate 59 07/01/19 15:22 Respiratory Rate 16 07/01/19 16:24 Blood Pressure 107/61 07/01/19 16:24 O2 Sat by Pulse Oximetry 99 07/01/19 16:24 Oxygen Delivery Oxygen Delivery Room Air Chest Pain - [facility] Narrative Medical decision making narrative: Patient presents with substernal chest pressure that woke her from sleep at 9:30 this morning has been constant since then. We will pursue cardiac workup and administer nitroglycerin and Zofran for the patient's pain and nausea. We will also give her some breathing treatments as she was significantly wheezy throughout all lung gage. Disposition will be admission for further chest pain workup once all testing is completed. 1635 - patient's lab work is at her baseline with a negative troponin. Magnesium as well as 1.5 and will be replaced. EKG shows nonspecific ST segment changes. Chest x-ray shows a consolidation which could be due to pulmonary edema or a pneumonia. We will admit the patient to the hospital for treatment of IV antibiotics and continue to trend her troponins. We will start the patient on Rocephin and azithromycin. Patient has been accepted to the hospital by Dr. Meraz. - Medical Records Medical records reviewed: Yes I reviewed the patient's medical records. - Lab Data Lab results reviewed: Yes I reviewed the patient's lab results. Result diagrams: 07/01/19 15:46 07/01/19 15:46 Lab Results 07/01/19 07/01/19 07/01/19 Range/Units 15:46 15:46 15:46 WBC 11.5 H (4.3-11.1) K/mcL RBC 3.92 (3.82-4.97) M/mcL Hgb 12.2 (11.5-15.4) g/dL Hct 36.3 (35.3-44.9) % MCV 92.6 (83.0-100.0) fL MCH 31.1 (28.0-33.3) pg MCHC 33.6 (31.6-35.5) g/dL RDW 13.2 (11.5-14.5) % Plt Count 292 (140-400) K/mcL MPV 9.4 (9.4-12.4) fL Immature Gran % 0.3 (0-4) % Seg Neutrophils % 54.2 % Lymphocytes % 34.3 % Monocytes % 6.3 % Eosinophils % 4.2 % Basophils % 0.7 % Neutrophils # 6.2 (1.6-8.9) K/mcL Lymphocytes # 3.9 (0.6-4.6) K/mcL Monocytes # 0.7 (0.0-1.3) K/mcL Eosinophils # 0.5 (0.0-0.6) K/mcL Basophils # 0.1 (0.0-0.2) K/mcL PT 14.1 H (9.4-12.1) Seconds INR 1.2 Sodium 136 (136-145) mEq/L Potassium 3.9 (3.5-5.1) mEq/L Chloride 109 H (98-107) mEq/L Carbon Dioxide 19 L (23-29) mEq/L BUN 27 H (6-20) mg/dL Creatinine 1.53 H (0.60-1.20) mg/dL Est GFR ( Amer) 43 L (> 60) Est GFR (Non-Af Amer) 35 L (> 60) BUN/Creatinine Ratio 18 (6-26) Glucose 220 H (70-105) mg/dL Calculated Osmolality 294 (280-300) Calcium 8.7 (8.6-10.3) mg/dL Magnesium 1.5 L (1.6-2.6) mg/dL Troponin I < 0.03 (< 0.04) ng/mL Lipase 92 H (11-82) Units/L - Radiology Data Radiology results reviewed: Yes I reviewed the patient's radiology results. - EKG Data EKG attestation: Yes I reviewed and interpreted this EKG. EKG results narrative: EKG obtained at 1524 on 07/01/2019 Heart rate 58 bpm, WI interval 148, QRS duration 94, QTC 454, QTC 446 Sinus rhythm without any acute ST segment elevations or depressions. No other T-wave abnormalities. No significant changes when compared to previous EKG dated 04/06/2019. Heart Score - Score History: Moderately Suspicious EKG: Non Specific repolarisation Disturbance Age: 45-65 Risk Factors: Equal/Greater than 3 risk factor or history of atherosclerotic disease Troponin: Less than normal limit HEART Score Total: 5
--- NOTE | 2019-07-01 15:37 | Emergency Department Note ---
Disposition Clinical Impression: Chest pain Qualifiers: Chest pain type: unspecified Qualified Code(s): R07.9 - Chest pain, unspecified COPD (chronic obstructive pulmonary disease) Qualifiers: COPD type: unspecified COPD Qualified Code(s): J44.9 - Chronic obstructive pulmonary disease, unspecified Diabetes Qualifiers: Diabetes mellitus type: type 2 Diabetes mellitus [facility] insulin use: without termite treater use Diabetes mellitus complication status: with other specified complication Qualified Code(s): E11.69 - Type 2 diabetes mellitus with other specified complication Pneumonia Qualifiers: Pneumonia type: due to unspecified organism Laterality: unspecified laterality Lung location: unspecified part of lung Qualified Code(s): J18.9 - Pneumonia, unspecified organism Disposition: Admitted As Inpatient Time of Disposition: 16:40 General Adult HPI - General Chief complaint: ED Chest Pain Stated complaint: Chest Pain Time Seen by Provider: 07/01/19 15:16 Source: patient Mode of arrival: ambulatory Limitations: no limitations Nursing Notes Reviewed: Yes Vital Signs Reviewed: Yes - History of Present Illness Pain Scale: 10 - Related Data Home Medications Medication Instructions Recorded Confirmed Aspirin 81 mg PO DAILY 09/13/16 02/15/19 Atorvastatin [Lipitor] 40 mg PO HS 09/13/16 02/15/19 Furosemide [Lasix] 40 mg PO BID 09/13/16 02/15/19 Gabapentin [Neurontin] 800 mg PO TID 09/13/16 02/15/19 Levothyroxine [Synthroid] 25 mcg PO DAILY 09/13/16 02/15/19 [place]-3/Dha/Epa/Fish Oil [Fish Oil 1 each PO DAILY 09/13/16 02/15/19 1,000 mg Softgel] Omeprazole [PriLOSEC] 40 mg PO BID 09/13/16 02/15/19 Oxycodone HCl/Acetaminophen 1 each PO BID PRN 09/13/16 02/15/19 [Percocet 10-325 mg Tablet] amLODIPine [Norvasc] 10 mg PO DAILY 09/13/16 02/15/19 Allopurinol [Zyloprim 100 MG] 100 mg PO DAILY 11/02/17 02/15/19 Apixaban [Eliquis] 5 mg PO DAILY 11/02/17 02/15/19 Dicyclomine [Bentyl] 10 mg PO BID 11/02/17 02/15/19 Insulin Glargine [Lantus] 40 unit SQ HS 11/02/17 02/15/19 Insulin LISPRO [HumaLOG] 10 units SQ TIDWM 11/02/17 02/15/19 Potassium Chloride [Klor-Con 10] 10 meq PO BID 11/02/17 02/15/19 hydroCHLOROthiazide 25 mg PO DAILY 11/02/17 02/15/19 [Hydrochlorothiazide] Cholestyramine 15 mg PO DAILY 11/03/17 02/15/19 Previous Rx's Medication Instructions Recorded Diltiazem CD (24hr) [Cardizem CD] 240 mg PO DAILY #30 cap.er.24h 11/03/17 Sucralfate [Carafate] 1 gm PO QIDAC #20 tablet 02/15/19 Doxycycline 100 mg PO BID #14 capsule 04/06/19 Allergies Allergy/AdvReac Type Severity Reaction Status Date / Time Penicillins [PCN] AdvReac Hives Verified 04/06/19 11:30 sulfamethoxazole AdvReac Hives Verified 04/06/19 11:30 [From Bactrim] trimethoprim [From Bactrim] AdvReac Hives Verified 03/23/19 13:04 Past Medical History - Past Medical History Medical history: Reports: arthritis, atrial fibrillation, COPD, coronary artery disease, diabetes, GERD, hypertension Surgical history: Reports: angioplasty/stent, cholecystectomy Psychiatric history: Reports: no psych history - Social History Smoking Status: Current every day smoker Smokeless Tobacco Status: No Alcohol use: Reports: none Drug use: Reports: none Physical Exam - General Limitations: no limitations General appearance: alert Course Vital Signs Temperature 98.4 F 07/01/19 15:22 Pulse Rate 59 07/01/19 15:22 Respiratory Rate 15 07/01/19 15:22 Blood Pressure 107/61 07/01/19 15:22 O2 Sat by Pulse Oximetry 96 07/01/19 15:22 Temperature 98.4 F 07/01/19 15:22 Pulse Rate 59 07/01/19 15:22 Respiratory Rate 16 07/01/19 16:24 Blood Pressure 107/61 07/01/19 16:24 O2 Sat by Pulse Oximetry 99 07/01/19 16:24 Oxygen Delivery Oxygen Delivery Room Air Medical Decision Making - Lab Data Result diagrams: 07/01/19 15:46 07/01/19 15:46 Lab Results 07/01/19 07/01/19 07/01/19 Range/Units 15:46 15:46 15:46 WBC 11.5 H (4.3-11.1) K/mcL RBC 3.92 (3.82-4.97) M/mcL Hgb 12.2 (11.5-15.4) g/dL Hct 36.3 (35.3-44.9) % MCV 92.6 (83.0-100.0) fL MCH 31.1 (28.0-33.3) pg MCHC 33.6 (31.6-35.5) g/dL RDW 13.2 (11.5-14.5) % Plt Count 292 (140-400) K/mcL MPV 9.4 (9.4-12.4) fL Immature Gran % 0.3 (0-4) % Seg Neutrophils % 54.2 % Lymphocytes % 34.3 % Monocytes % 6.3 % Eosinophils % 4.2 % Basophils % 0.7 % Neutrophils # 6.2 (1.6-8.9) K/mcL Lymphocytes # 3.9 (0.6-4.6) K/mcL Monocytes # 0.7 (0.0-1.3) K/mcL Eosinophils # 0.5 (0.0-0.6) K/mcL Basophils # 0.1 (0.0-0.2) K/mcL PT 14.1 H (9.4-12.1) Seconds INR 1.2 Sodium 136 (136-145) mEq/L Potassium 3.9 (3.5-5.1) mEq/L Chloride 109 H (98-107) mEq/L Carbon Dioxide 19 L (23-29) mEq/L BUN 27 H (6-20) mg/dL Creatinine 1.53 H (0.60-1.20) mg/dL Est GFR ( Amer) 43 L (> 60) Est GFR (Non-Af Amer) 35 L (> 60) BUN/Creatinine Ratio 18 (6-26) Glucose 220 H (70-105) mg/dL Calculated Osmolality 294 (280-300) Calcium 8.7 (8.6-10.3) mg/dL Magnesium 1.5 L (1.6-2.6) mg/dL Troponin I < 0.03 (< 0.04) ng/mL B-Natriuretic Peptide (Less than 100) pg/mL Lipase 92 H (11-82) Units/L 07/01/19 Range/Units 15:46 WBC (4.3-11.1) K/mcL RBC (3.82-4.97) M/mcL Hgb (11.5-15.4) g/dL Hct (35.3-44.9) % MCV (83.0-100.0) fL MCH (28.0-33.3) pg MCHC (31.6-35.5) g/dL RDW (11.5-14.5) % Plt Count (140-400) K/mcL MPV (9.4-12.4) fL Immature Gran % (0-4) % Seg Neutrophils % % Lymphocytes % % Monocytes % % Eosinophils % % Basophils % % Neutrophils # (1.6-8.9) K/mcL Lymphocytes # (0.6-4.6) K/mcL Monocytes # (0.0-1.3) K/mcL Eosinophils # (0.0-0.6) K/mcL Basophils # (0.0-0.2) K/mcL PT (9.4-12.1) Seconds INR Sodium (136-145) mEq/L Potassium (3.5-5.1) mEq/L Chloride (98-107) mEq/L Carbon Dioxide (23-29) mEq/L BUN (6-20) mg/dL Creatinine (0.60-1.20) mg/dL Est GFR ( Amer) (> 60) Est GFR (Non-Af Amer) (> 60) BUN/Creatinine Ratio (6-26) Glucose (70-105) mg/dL Calculated Osmolality (280-300) Calcium (8.6-10.3) mg/dL Magnesium (1.6-2.6) mg/dL Troponin I (< 0.04) ng/mL B-Natriuretic Peptide 99 (Less than 100) pg/mL Lipase (11-82) Units/L Attestation Statement - Attestation Attestation: I examined this patient and my medical decision-making was reviewed with the Resident Physician. I agree with the documented findings, disposition and treatment plan as described except to the extent set forth below. Patient to the ED with chest pain. Substernal pressure. Now radiates behind her shoulder blades. Had some pain into her neck as well. Patient was seen [facility] this morning. She states she left there and came here because they wanted to transfer her to [place]. History of coronary disease with a stent 1. On examination she is in no distress. Heart regular rate and rhythm. Lungs with diffuse expiratory wheezing. Plan. Nebs and steroids. Cardiac workup. EKG reviewed with the resident. Patient's workup shows a negative troponin. She does have a patchy and tr eatment x-ray which is treated with IV antibiotics. She does not meet sepsis criteria. She is admitted to the hospitalist service.
[2019-07-01] MEDS ORDERED: Aspirin 81 MG TAB.CHEW PO ONE (15:39)
[2019-07-01 15:55] LABS: Basophils # 0.1 K/mcL (0.0-0.2); Basophils % 0.7 %; Eosinophils # 0.5 K/mcL (0.0-0.6); Eosinophils % 4.2 %; Hematocrit 36.3 % (35.3-44.9); Hemoglobin 12.2 g/dL (11.5-15.4); Immature Granulocytes % 0.3 % (0-4); Lymphocytes # 3.9 K/mcL (0.6-4.6); Lymphocytes % 34.3 %; Mean Corpuscular HGB Conc 33.6 g/dL (31.6-35.5); Mean Corpuscular Hemoglobin 31.1 pg (28.0-33.3); Mean Corpuscular Volume 92.6 fL (83.0-100.0); Mean Platelet Volume 9.4 fL (9.4-12.4); Monocytes # 0.7 K/mcL (0.0-1.3); Monocytes % 6.3 %; Neutrophils # 6.2 K/mcL (1.6-8.9); Platelet Count 292 K/mcL (140-400); Red Blood Count 3.92 M/mcL (3.82-4.97); Red Cell Distribution Width 13.2 % (11.5-14.5); Segmented Neutrophils % 54.2 %; White Blood Count 11.5 K/mcL (4.3-11.1)
[2019-07-01 16:05] LABS: INR 1.2; Prothrombin Time 14.1 Seconds (9.4-12.1)
[2019-07-01 16:16] LABS: BUN/Creatinine Ratio 18 (6-26); Blood Urea Nitrogen 27 mg/dL (6-20); Calcium 8.7 mg/dL (8.6-10.3); Carbon Dioxide 19 mEq/L (23-29); Chloride 109 mEq/L (98-107); Glucose 220 mg/dL (70-105); Lipase 92 Units/L (11-82); Magnesium 1.5 mg/dL (1.6-2.6); Osmolality,Calculated 294 (280-300); Potassium 3.9 mEq/L (3.5-5.1); Sodium 136 mEq/L (136-145); eGFR For African Americans 43 (> 60); eGFR For Non-African Americans 35 (> 60)
[2019-07-01 16:17] LABS: Troponin I < 0.03 ng/mL (< 0.04)
[2019-07-01] MEDS ORDERED: Azithromycin 500 MG in 0.9 % Sodium Chloride 250 ML IVPB ONE (16:35)
[2019-07-01] MEDS ORDERED: cefTRIAXone 1,000 MG in Water for inj. (sterile) 10 ML IVP ONE (16:35)
[2019-07-01] MEDS ORDERED: Naloxone 0.4 MG/ML INJ IVP PRN (17:41)
--- NOTE | 2019-07-01 17:55 | Internal Med History&Physical ---
Date of Encounter: 07/01/19 Time of Encounter: 17:55 Internal Medicine - H&P: HPI Chief complaint: Chest pain Admitted From: Home Plans for Post Hospital Care: Home History of present illness: Ms. Bach is a 54 year old female with past medical history of IBS, COPD, diabetes, CAD with LAD stent in 2011, atrial fibrillation on Eliquis, hypertension, CKD, Charcot foot came in from [facility] after her chest pain was not resolved. Patient woke up from sleep this morning due to severe chest pain. She took one dose of nitroglycerin and went to [facility] as she felt that it was similar to her heart attack in the past. Patient received aspirin and nitroglycerin at [facility]. She was told her blood work was normal at [facility]. She also complains of cough for the past few days but denies any fevers. Had pneumonia treated about 6 months ago. Her chest pain was central in nature but did not radiate to her jaw and back. When severe it was 9/10 in intensity. She had associated nausea and 2 episodes of vomiting. Denies any palpitation or lightheadedness. Past Med Surg Social Fam HX - Past Medical History Medical history: arthritis, atrial fibrillation, COPD, coronary artery disease, diabetes, GERD, hypertension Additional medical history: heart dx,sleep apnea Psychiatric history: no psych history - Past Surgical History Surgical History: angioplasty/stent, cholecystectomy Additional surgical history: left foot surgery. knee surgery - Social History Smoking Status: Current every day smoker Smokeless Tobacco Status: No Alcohol use: none Drug use: none - Family History Mother Living Status: Hx Family Endocrine Disorder: Yes (DM) Father Living Status: Hx Family Respiratory Disorders: Yes (emphysema) Internal Medicine - H&P: Meds Aspirin 81 mg PO DAILY 09/13/16 [History] Atorvastatin [Lipitor] 40 mg PO DAILY 09/13/16 [History] Furosemide [Lasix] 40 mg PO BID 09/13/16 [History] Gabapentin [Neurontin] 1,200 mg PO TID 09/13/16 [History] Oxycodone HCl/Acetaminophen [Percocet 10-325 mg Tablet] 1 each PO BID PRN 09/13/16 [History] Allopurinol [Zyloprim 100 MG] 100 mg PO DAILY 11/02/17 [History] Apixaban [Eliquis] 5 mg PO BID 11/02/17 [History] Insulin Glargine [Lantus] 60 unit SQ HS 11/02/17 [History] Potassium Chloride [Klor-Con 10] 10 meq PO DAILY 11/02/17 [History] Diltiazem CD (24hr) [Cardizem CD] 240 mg PO DAILY #30 cap.er.24h 11/03/17 [Rx] Losartan [Cozaar] 25 mg PO DAILY 07/01/19 [History] Magnesium Oxide [Magnesium] 400 mg PO DAILY 07/01/19 [History] Omeprazole [PriLOSEC] 20 mg PO BIDAC 07/01/19 [History] Allergy/AdvReac Type Severity Reaction Status Date / Time Penicillins [PCN] AdvReac Hives Verified 04/06/19 11:30 sulfamethoxazole AdvReac Hives Verified 04/06/19 11:30 [From Bactrim] trimethoprim [From Bactrim] AdvReac Hives Verified 03/23/19 13:04 All Systems PM: A 10-system review of systems was performed and is negative for pertinent findings except as documented above in the HPI. - Constitutional Vitals: Temp Pulse Resp BP Pulse Ox 98.4 F 59 16 107/61 99 07/01/19 15:22 07/01/19 15:22 07/01/19 16:24 07/01/19 16:24 07/01/19 16:24 Exam: Constitutional: Vitals as noted. Conversant. No Apparent Distress. mobidly obese Eyes : Sclera white, conjunctiva clear, no lid lag, PEAR[place]. ENT : Grossly normal hearing. Oropharyngeal exam unremarkable. Moist mucus membranes. No JVD, no cervical lymphadenopathy. no thyromegaly or mass. Respiratory : No accessory muscle use, occasional rhonchi Cardiovascular : RRR, +S1, +S2. no murmur, gallop, rubs. No chest wall tenderness GI/Abdominal : Soft, Non-tender, Non-distended, normal bowel sounds, soft, no peritoneal signs. no orgenomegaly or mass appreciated. no hernia. Musculoskeletal: Lt foot with brace, no edema or cyanosis. warm extremities, pulses palpable and symmetrical in UE/LE. no calf tenderness. Neurological: AO X3, CN II-XII grossly intact, grossly normal motor and sensory exam. Skin: No skin rash, lesions or ulcers noted. Internal Med - H&P Results - Labs CBC & Chem 7: 07/01/19 15:46 07/01/19 15:46 Labs: Short CBC 07/01/19 Range/Units 15:46 WBC 11.5 H (4.3-11.1) K/mcL Hgb 12.2 (11.5-15.4) g/dL Hct 36.3 (35.3-44.9) % Plt Count 292 (140-400) K/mcL Neutrophils # 6.2 (1.6-8.9) K/mcL BMP 07/01/19 15:46 Sodium 136 Potassium 3.9 Chloride 109 H Carbon Dioxide 19 L BUN 27 H Creatinine 1.53 H Glucose 220 H Calcium 8.7 Cardiac Enzymes 07/01/19 Range/Units 15:46 Troponin I < 0.03 (< 0.04) ng/mL - EKG Data -: EKG Interpreted by Myself EKG shows normal: sinus rhythm Rate: normal - EKG Data Prior EKG available for review: yes When compared to previous EKG: there is no significant change - Impressions ITS Impressions Chest X-Ray 07/01/19 15:25 IMPRESSION: Patchy parenchymal lung opacity may reflect pulmonary edema or pneumonia. D/ / Connor Cohn MD / Connor Cohn MD Interpreting Provider: Connor Cohn MD - Assessment and Plan (1) Chest pain Current Visit: Yes Status: Acute Assessment and plan: Chest pain has typical charecteristic of unstable angina. However, EKG without signs of ischemia and 1st troponin negative after 8 Need to rule out dissection, however hemodynamically stable. Will get MR angiography given patient with patient with CKD and at risk at contrast nephropathy trend troponins and obtain echo. If negative troponin and MR will plan for stress test. CXR with patchy opacity. has some cough. Will get CT for further evaluation and procalcitonin. Qualifiers: Chest pain type: unspecified Qualified Code(s): R07.9 - Chest pain, unspecified (2) COPD (chronic obstructive pulmonary disease) Current Visit: Yes Status: Chronic Assessment and plan: Had wheezing per ER documentation which had improved. Continue prn bronchodilators and empiric antibiotics for now. Obtain respiratory infectious panel Qualifiers: COPD type: unspecified COPD Qualified Code(s): J44.9 - Chronic obstructive pulmonary disease, unspecified (3) Diabetes mellitus Current Visit: Yes Status: Chronic Assessment and plan: accuchecks and prn sliding scale insulin. Qualifiers: Diabetes mellitus type: type 2 Diabetes mellitus shelter insulin use: without shelter use Diabetes mellitus complication status: with other specified complication Qualified Code(s): E11.69 - Type 2 diabetes mellitus with other specified complication (4) CKD (chronic kidney disease) Current Visit: No Status: Chronic Assessment and plan: renal function appears to be at baseline Monitor for now. Qualifiers: Chronic kidney disease stage: stage 3 (moderate) Qualified Code(s): N18.3 - Chronic kidney disease, stage 3 (moderate) (5) Essential hypertension Current Visit: No Status: Chronic Assessment and plan: Patient doesnt know home medication. Will resume once reconciled. However hold for now given BP on lower end. (6) Hypothyroidism Current Visit: No Status: Chronic Assessment and plan: continue once home dose confirmed. Qualifiers: Hypothyroidism type: unspecified Qualified Code(s): E03.9 - Hypothyroidism, unspecified (7) Morbid obesity with BMI of 40.0-44.9, adult Current Visit: No Status: Chronic (8) Tobacco abuse disorder Current Visit: No Status: Chronic Assessment and plan: discussed smoking cessation and lifestyle changes for weight loss. (9) Afib Current Visit: Yes Status: Acute Assessment and plan: currently rate controlled hold cardizem given BP on lower end. hold eliquis until dissection ruled out. Qualifiers: Atrial fibrillation type: chronic Qualified Code(s): I48.2 - Chronic atrial fibrillation - Time Spent With Patient Total time spent is greater than 50% in coordination of care (as documented) at patient's floor/unit and/or counseling patient:
[2019-07-01] MEDS ORDERED: Gadolinium Contrast Agent (WT Based) IV PRN (18:14)
[2019-07-01] MEDS: Gabapentin 400 MG CAPSULE PO SCH (20:05)
[2019-07-01] MEDS: Insulin LISPRO 300 UNITS/3 ML VIAL SQ SCH (20:05)
[2019-07-01] MEDS ORDERED: *HR* Promethazine 25 MG/ML VIAL IVP ONE (22:02)
[2019-07-01 22:50] LABS: Adenovirus Not Detected (Not Detect); Bordetella Pertussis Not Detected (Not Detect); Chlamydophila pneumoniae Not Detected (Not Detect); Coronavirus 229E Not Detected (Not Detect); Coronavirus HKU1 Not Detected (Not Detect); Coronavirus NL63 Not Detected (Not Detect); Coronavirus OC43 Not Detected (Not Detect); Human Metapneumovirus Not Detected (Not Detect); Human Rhinovirus/Enterovirus Not Detected (Not Detect); Influenza A Subtype 2009 H1 Not Detected (Not Detect); Influenza A Untypeable Not Detected (Not Detect); Influenza B Not Detected (Not Detect); Mycoplasma pneumoniae Not Detected (Not Detect); Parainfluenza Virus 1 Not Detected (Not Detect); Parainfluenza Virus 2 Not Detected (Not Detect); Parainfluenza Virus 3 Not Detected (Not Detect); Parainfluenza Virus 4 Not Detected (Not Detect); Respiratory Syncytial Virus Not Detected (Not Detect)
[2019-07-01] MEDS ORDERED: 0.9 % Sodium Chloride 1,000 ML IVC SCH (23:45)
[2019-07-02 01:43] LABS: Basophils # 0.1 K/mcL (0.0-0.2); Basophils % 0.4 %; Eosinophils # 0.1 K/mcL (0.0-0.6); Eosinophils % 0.9 %; Hematocrit 38.4 % (35.3-44.9); Hemoglobin 12.6 g/dL (11.5-15.4); Immature Granulocytes % 0.4 % (0-4); Lymphocytes # 1.1 K/mcL (0.6-4.6); Mean Corpuscular HGB Conc 32.8 g/dL (31.6-35.5); Mean Corpuscular Volume 94.6 fL (83.0-100.0); Mean Platelet Volume 9.5 fL (9.4-12.4); Monocytes # 0.9 K/mcL (0.0-1.3); Monocytes % 5.8 %; Neutrophils # 13.6 K/mcL (1.6-8.9); Platelet Count 281 K/mcL (140-400); Red Blood Count 4.06 M/mcL (3.82-4.97); Red Cell Distribution Width 13.3 % (11.5-14.5); Segmented Neutrophils % 85.5 %; White Blood Count 15.9 K/mcL (4.3-11.1)
[2019-07-02 02:06] LABS: Alanine Aminotransferase 78 Units/L (7-52); Albumin 3.4 g/dL (3.5-5.7); Albumin/Globulin Ratio 1.1 (1.1-2.2); Alkaline Phosphatase 277 Units/L (34-104); Aspartate Amino Transferase 89 Units/L (13-39); BUN/Creatinine Ratio 13 (6-26); Bilirubin,Total 0.5 mg/dL (0.3-1.0); Blood Urea Nitrogen 29 mg/dL (6-20); Calcium 8.4 mg/dL (8.6-10.3); Carbon Dioxide 16 mEq/L (23-29); Chloride 110 mEq/L (98-107); Glucose 228 mg/dL (70-105); Magnesium 1.9 mg/dL (1.6-2.6); Osmolality,Calculated 299 (280-300); Potassium 4.3 mEq/L (3.5-5.1); Sodium 138 mEq/L (136-145); Total Protein 6.4 g/dL (6.4-8.9); eGFR For African Americans 27 (> 60); eGFR For Non-African Americans 22 (> 60)
[2019-07-02 02:07] LABS: Troponin I < 0.03 ng/mL (< 0.04)
[2019-07-02] MEDS ORDERED: Regadenoson 0.4 MG/5 ML SYRINGE IVP ONE (06:38)
--- NOTE | 2019-07-02 07:20 | Internal Med Progress Note ---
Hospitalist Progress Note - Encounter Date of Encounter: 07/02/19 Time of Encounter: 07:20 - Subjective Interval History: Patient seen and examined this morning at bedside. No acute overnight events. She did become a little bit drowsy after she received promethazine. Was kept on CPAP overnight. She denies any more chest pain or difficulty breathing but is not feeling well. She is not able to offer more specific symptoms except not feeling well. Denies any lightheadedness or palpitation. - Exam Vitals: Temp Pulse Resp BP Pulse Ox 97.5 F L 73 16 165/83 92 07/02/19 07:01 07/02/19 07:01 07/02/19 07:01 07/02/19 07:01 07/02/19 07:01 Exam: Constitutional: Vitals as noted. Conversant. No Apparent Distress. morbidly obese Respiratory : No accessory muscle use, occasional rhonchi Cardiovascular : RRR, +S1, +S2. no murmur, gallop, rubs. No chest wall tenderness GI/Abdominal : Soft, Non-tender, Non-distended, normal bowel sounds, soft, no peritoneal signs. Musculoskeletal: Lt foot with brace, no edema or cyanosis. warm extremities, pulses palpable and symmetrical in UE/LE. Neurological: AO X3, CN II-XII grossly intact, grossly normal motor and sensory exam. Skin: No skin rash, lesions or ulcers noted. - Assessment and Plan (1) Chest pain Current Visit: Yes Status: Acute (2) COPD (chronic obstructive pulmonary disease) Current Visit: Yes Status: Chronic (3) Diabetes mellitus Current Visit: Yes Status: Chronic (4) CKD (chronic kidney disease) Current Visit: No Status: Chronic (5) Essential hypertension Current Visit: No Status: Chronic (6) Hypothyroidism Current Visit: No Status: Chronic (7) Morbid obesity with BMI of 40.0-44.9, adult Current Visit: No Status: Chronic (8) Tobacco abuse disorder Current Visit: No Status: Chronic (9) Afib Current Visit: Yes Status: Acute - Summary of Assessment and Plan Summary of Assessment and Plan: Assessment Acute Chest pain HAIDER on CKD elevated lft metabolic acidosis Chronic COPD DM CKD3 HTN CAD Plan - chest pain resolve. troponin negative x3, ekg without ischemic changes. Will hold for stress test today given elevated lft and further workup related to it for now. cancel MR angio as well. f/u ECHO cardiogram - CT without confluent infiltrate, mild emphysema and ground glass opacity. c/w empiric antibiotics for now. respiratory infectious panel negative. Will obtain blood cultures given leukocytosis. currently staturating well on nasal canula - has elevated ast, alt and alk phos. has history of cholecystectomy. mildly elevated lipase. Will obtain repeat lipase, hepatitis panel and ct abdomen to evaluate abdominal etiology - HAIDER on CKD. Will obtain urine study. Start gentle ivf and hold home lasix for now. Start long acting insulin for better diabetes control. strict I/O. avoid nephrotoxic agent. Obtain urine acid. - Has metabolic acidosis. Will obtain abg. could be related to haider. - c/w diabetic diet, accuchecks and SSI. started on basal insulin. - BP now stable. continue izabella diltiazem. stop amlodipine as not home medication. Hold losartan and lasix for now. - Does not appear to be on thyroixin replacement per med rec. Unclear h/o hypothyroid. will need outpatient follow up. - continues to smoke. discussed smoking cessation and lifestyle changes for weight loss. - c/w cardizem for rate control and HTN. Hold eliquis in case surgical abdominal cause.\ - Time Spent with Patient Total time spent is greater than 50% in coordination of care (as documented) at patient's floor/unit and/or counseling patient: Internal Medicine: Result - Labs CBC & Chem 7: 07/02/19 00:35 07/02/19 00:35 Labs: Short CBC 07/01/19 07/02/19 Range/Units 15:46 00:35 WBC 11.5 H 15.9 H (4.3-11.1) K/mcL Hgb 12.2 12.6 (11.5-15.4) g/dL Hct 36.3 38.4 (35.3-44.9) % Plt Count 292 281 (140-400) K/mcL Neutrophils # 6.2 13.6 H (1.6-8.9) K/mcL BMP 07/01/19 07/02/19 15:46 00:35 Sodium 136 138 Potassium 3.9 4.3 Chloride 109 H 110 H Carbon Dioxide 19 L 16 L BUN 27 H 29 H Creatinine 1.53 H 2.29 H Glucose 220 H 228 H Calcium 8.7 8.4 L Cardiac Enzymes 07/01/19 07/01/19 07/02/19 Range/Units 15:46 19:35 00:35 Troponin I < 0.03 < 0.03 < 0.03 (< 0.04) ng/mL 07/02/19 Range/Units 00:35 Troponin I < 0.03 (< 0.04) ng/mL Liver Function 07/02/19 Range/Units 00:35 Total Bilirubin 0.5 (0.3-1.0) mg/dL AST 89 H (13-39) Units/L ALT 78 H (7-52) Units/L Alkaline Phosphatase 277 H (34-104) Units/L Albumin 3.4 L (3.5-5.7) g/dL - ABG Interpretation ABG results: PT/INR, D-dimer PT 14.1 Seconds (9.4-12.1) H 07/01/19 15:46 D-Dimer 529 ng/mLFEU (0-500) H 07/01/19 19:35 - Impressions Impressions Chest X-Ray 07/01/19 15:25 IMPRESSION: Patchy parenchymal lung opacity may reflect pulmonary edema or pneumonia. D/ / Connor Cohn MD / Connor Cohn MD Interpreting Provider: Connor Cohn MD Chest CT 07/01/19 17:51 IMPRESSION: 1. Ground-glass opacities are nonspecific and may indicate edema, inflammation or infection. 2. Emphysema. D/ / Sung Dumont MD / Sung Dumont MD Interpreting Provider: Sung Dumont MD Consult Discharge Plan - Plan Referrals: Aviva Lewis CNP [Primary Care Provider] - 07/09/19 1:00 pm () Arturo Avelar MD [Partnered Physician] - 08/29/19 3:10 pm Jan Polanco MD [Partnered Physician] - 07/18/19 10:15 am (1) Chest pain Qualifiers: Chest pain type: unspecified Qualified Code(s): R07.9 - Chest pain, unspecified (2) COPD (chronic obstructive pulmonary disease) Qualifiers: COPD type: unspecified COPD Qualified Code(s): J44.9 - Chronic obstructive pulmonary disease, unspecified (3) Diabetes mellitus Qualifiers: Diabetes mellitus type: type 2 Diabetes mellitus buttermilk drier operator insulin use: without buttermilk drier operator use Diabetes mellitus complication status: with other specified complication Qualified Code(s): E11.69 - Type 2 diabetes mellitus with other specified complication (4) CKD (chronic kidney disease) Qualifiers: Chronic kidney disease stage: stage 3 (moderate) Qualified Code(s): N18.3 - Chronic kidney disease, stage 3 (moderate) (6) Hypothyroidism Qualifiers: Hypothyroidism type: unspecified Qualified Code(s): E03.9 - Hypothyroidism, unspecified (9) Afib Qualifiers: Atrial fibrillation type: chronic Qualified Code(s): I48.2 - Chronic atrial fibrillation
[2019-07-02 07:51] LABS: Lipase 27 Units/L (11-82)
[2019-07-02] MEDS: Diltiazem CD (24hr) 240 MG CAPSULE PO SCH (08:20)
[2019-07-02] MEDS: Gabapentin 400 MG CAPSULE PO SCH ×3 (08:20→20:55)
[2019-07-02] MEDS ORDERED: amLODIPine 5 MG TABLET PO SCH (09:00)
[2019-07-02 09:41] LABS: Hepatitis B Surface Antigen Nonreactive (Nonreactive)
--- NOTE | 2019-07-02 09:44 | Electrocardiograph Report ---
[place] [id number] Test Date: 2019-07-01 Pat Name: Radha Bach Department: EXAM11 Room: 3B55 Gender: F Change Control Specialist: : [id number] Requested By: Jazmin Mckeon Order Number: [id number] [place] MD: Erwin Avalos Measurements Intervals [place] Rate: 58 P: 48 MN: 148 QRS: -29 QRSD: 94 T: 76 QT: 454 QTc: 446 Interpretive Statements Sinus rhythm Borderline left axis deviation RSR' in V1 or V2, probably normal variant Electronically Signed On 07-02-2019 9:42:35 EDT by Erwin Avalos
[2019-07-02] MEDS ORDERED: Ipratropium/Albuterol Neb 3 ML IH PRN (10:07)
[2019-07-02] MEDS ORDERED: *HR* OxyCODONE/APAP 10/325 TABLET PO PRN (10:08)
[2019-07-02 10:12] LABS: Hepatitis A Antibody IgM Nonreactive (Nonreactive); Hepatitis B Core IgM Nonreactive (Nonreactive)
[2019-07-02 10:13] LABS: Hepatitis C Virus Antibody Nonreactive (Nonreactive)
[2019-07-02] MEDS: Insulin LISPRO 300 UNITS/3 ML VIAL SQ SCH ×4 (10:21→20:50)
[2019-07-02] MEDS ORDERED: Ringers Solution, Lactated 1,000 ML IVC SCH (10:30)
[2019-07-02 10:58] LABS: ABG Base Excess -3 mEq/L (-2 to 3); ABG HCO3 22 mEq/L (21-27); ABG Oxygen Saturation 95 % (95-98); ABG PCO2 39 mmHg (35-45); ABG PH 7.36 pH Units (7.32-7.45); ABG PO2 77 mmHg (85-104); ABG TCO2 23 mEq/L (20-26)
[2019-07-02] MEDS: Insulin DETEMIR 100 UNIT/ML X5UNITS SQ SCH ×2 (11:45→20:55)
[2019-07-02 17:57] LABS: Calcium 7.9 mg/dL (8.6-10.3)
[2019-07-02] MEDS ORDERED: Azithromycin 500 MG in 0.9 % Sodium Chloride 250 ML IVPB SCH (18:00)
[2019-07-02] MEDS ORDERED: cefTRIAXone 1,000 MG in Water for inj. (sterile) 10 ML IVP SCH (18:00)
[2019-07-02 18:28] LABS: Bilirubin,Urine Negative (Negative); Blood,Urine Negative (Negative); Clarity,Urine Clear (Clear); Color,Urine Yellow (Yellow); Glucose,Urine (UA) Normal (Normal); Ketones,Urine Negative (Negative); Leukocyte Esterase,Urine Negative (Negative); Nitrite,Urine Negative (Negative); PH,Urine 5.5 pH Units (5.0-8.0); Protein,Urine 100 mg/dL (Neg-Trace); Urobilinogen,Urine Normal (Normal)
[2019-07-02 18:31] LABS: Bacteria,Urine None Seen per hpf (None-Few); Hyaline Casts,Urine None Seen per lpf (None-Few); Sodium, Urine 32.6 mEq/L; Squamous Epithelial Cell,Urine Many per lpf (None-Few)
[2019-07-02 18:46] LABS: Yeast,Urine Few per hpf (None Seen)
[2019-07-03 01:51] LABS: Basophils # 0.1 K/mcL (0.0-0.2); Basophils % 0.7 %; Eosinophils # 0.6 K/mcL (0.0-0.6); Eosinophils % 7.2 %; Hematocrit 34.1 % (35.3-44.9); Hemoglobin 11.3 g/dL (11.5-15.4); Immature Granulocytes % 0.1 % (0-4); Lymphocytes # 2.6 K/mcL (0.6-4.6); Lymphocytes % 29.4 %; Mean Corpuscular HGB Conc 33.1 g/dL (31.6-35.5); Mean Corpuscular Hemoglobin 31.4 pg (28.0-33.3); Mean Corpuscular Volume 94.7 fL (83.0-100.0); Mean Platelet Volume 9.1 fL (9.4-12.4); Monocytes # 0.5 K/mcL (0.0-1.3); Neutrophils # 4.9 K/mcL (1.6-8.9); Platelet Count 251 K/mcL (140-400); Red Cell Distribution Width 13.1 % (11.5-14.5); Segmented Neutrophils % 56.6 %; White Blood Count 8.7 K/mcL (4.3-11.1)
[2019-07-03 02:07] LABS: Albumin 2.9 g/dL (3.5-5.7); Bilirubin,Total 0.3 mg/dL (0.3-1.0); Calcium 7.9 mg/dL (8.6-10.3); Globulin 2.9 g/dL (2.4-3.5); Total Protein 5.8 g/dL (6.4-8.9)
[2019-07-03] MEDS ORDERED: Regadenoson 0.4 MG/5 ML SYRINGE IVP ONE (06:35)
[2019-07-03] MEDS: Insulin LISPRO 300 UNITS/3 ML VIAL SQ SCH ×4 (07:53→20:41)
[2019-07-03] MEDS: Gabapentin 400 MG CAPSULE PO SCH ×3 (10:13→20:53)
[2019-07-03] MEDS: Diltiazem CD (24hr) 240 MG CAPSULE PO SCH (10:15)
[2019-07-03] MEDS: Insulin DETEMIR 100 UNIT/ML X5UNITS SQ SCH ×2 (10:16→20:53)
[2019-07-03] MEDS: Nicotine 14 MG PATCH.TD24 TD SCH (10:49)
--- NOTE | 2019-07-03 11:40 | Internal Med Progress Note ---
Hospitalist Progress Note - Encounter Date of Encounter: 07/03/19 Time of Encounter: 11:37 - Subjective Interval History: Patient seen and examined this morning at bedside. No acute overnight events. Patient feeling well. Currently nothing by mouth for stress test. Denies any more chest pain . Denies any nausea vomiting or diarrhea. - Exam Vitals: Temp Pulse Resp BP Pulse Ox 97.6 F 75 16 146/75 95 07/03/19 11:19 07/03/19 11:19 07/03/19 11:07/03/19 11:07/03/19 11:19 Exam: Constitutional: Vitals as noted. Conversant. No Apparent Distress. morbidly obese Respiratory : No accessory muscle use, occasional rhonchi Cardiovascular : RRR, +S1, +S2. no murmur, gallop, rubs. Has reproducible chest wall tenderness GI/Abdominal : Soft, Non-tender, Non-distended, normal bowel sounds, soft, no peritoneal signs. Musculoskeletal: no edema or cyanosis. warm extremities, pulses palpable and symmetrical in UE/LE. Neurological: AO X3, CN II-XII grossly intact, grossly normal motor and sensory exam. Skin: No skin rash, lesions or ulcers noted. - Assessment and Plan (1) Chest pain Current Visit: Yes Status: Acute (2) COPD (chronic obstructive pulmonary disease) Current Visit: Yes Status: Chronic (3) Diabetes mellitus Current Visit: Yes Status: Chronic (4) CKD (chronic kidney disease) Current Visit: No Status: Chronic (5) Essential hypertension Current Visit: No Status: Chronic (6) Hypothyroidism Current Visit: No Status: Chronic (7) Morbid obesity with BMI of 40.0-44.9, adult Current Visit: No Status: Chronic (8) Tobacco abuse disorder Current Visit: No Status: Chronic (9) Afib Current Visit: Yes Status: Acute - Summary of Assessment and Plan Summary of Assessment and Plan: Assessment Acute Chest pain HAIDER on CKD elevated lft metabolic acidosis Chronic COPD DM CKD3 HTN CAD afib Plan - chest pain resolve. has some reproducible tenderness. troponin negative x3, ekg without ischemic changes. Plan for stress test today. Low suspicion of chest pain being cardiac in nature. MR cancelled as BP better and no chest pain. ECHO with EF 60-65, mod LVH, mod dilated LA, normal WM. - CT without confluent infiltrate, mild emphysema and ground glass opacity. wbc significantly improved. Suspect lab error yesterday. Will stop antibiotics and monitor. respiratory infectious panel negative. f/u blood cultures. saturating well on nasal canula - LFT normalized. lipase normalized. negative hepatitis panel. ct abdomen with cirrhotic liver and not other acute abnormality. - HAIDER on CKD. Has proteinuria. urine electrolytes with prerenal in etiology. improved with ivf. hold home lasix for now. Scr at baseline. strict I/O. avoid nephrotoxic agent. normal urine acid. - Has metabolic acidosis, likely due to haider. Will consider adding sodium bicarb on dc if continues. - c/w diabetic diet, accuchecks and SSI, basal insulin. - BP now stable. continue home diltiazem. stop amlodipine as not home medication. Hold losartan and lasix for now. - Does not appear to be on thyroxine replacement per med rec. Unclear h/o hypothyroid. will need outpatient follow up. - continues to smoke. discussed smoking cessation and lifestyle changes for weight loss. - c/w cardizem for rate control and HTN. resume home [facility] Internal Medicine: Result - Labs CBC & Chem 7: 07/03/19 01:23 07/03/19 01:23 Labs: Short CBC 07/03/19 Range/Units 01:23 WBC 8.7 (4.3-11.1) K/mcL Hgb 11.3 L (11.5-15.4) g/dL Hct 34.1 L (35.3-44.9) % Plt Count 251 (140-400) K/mcL Neutrophils # 4.9 (1.6-8.9) K/mcL BMP 07/02/19 07/03/19 17:19 01:23 Sodium 134 L 136 Potassium 4.0 4.0 Chloride 109 H 111 H Carbon Dioxide 20 L 18 L BUN 33 H 34 H Creatinine 1.87 H 1.67 H Glucose 196 H 202 H Calcium 7.9 L 7.9 L Liver Function 07/03/19 Range/Units 01:23 Total Bilirubin 0.3 (0.3-1.0) mg/dL AST 22 (13-39) Units/L ALT 40 (7-52) Units/L Alkaline Phosphatase 237 H (34-104) Units/L Albumin 2.9 L (3.5-5.7) g/dL Urine 07/02/19 Range/Units 18:03 Urine Color Yellow (Yellow) Urine Clarity Clear (Clear) Urine pH 5.5 (5.0-8.0) pH Units Ur Specific [place] 1.010 (1.010-1.025) Urine Protein 100 H (Neg-Trace) mg/dL Urine Glucose (UA) Normal (Normal) mg/dL - ABG Interpretation ABG results: ABG ABG pH 7.36 pH Units (7.32-7.45) 07/02/19 10:55 ABG pCO2 39 mmHg (35-45) 07/02/19 10:55 ABG pO2 77 mmHg (85-104) L 07/02/19 10:55 ABG O2 Saturation 95 % (95-98) 07/02/19 10:55 PT/INR, D-dimer PT 14.1 Seconds (9.4-12.1) H 07/01/19 15:46 D-Dimer 529 ng/mLFEU (0-500) H 07/01/19 19:35 - Impressions Impressions Echocardiogram 07/01/19 18:10 Impressions: LVEF 60-65%. Moderate left ventricular diastolic dysfunction. Normal right ventricular structure and function. Moderately dilated left atrium. Mild mitral regurgitation. No pulmonary hypertension. Left Ventricular Wall Motion: Rest Echo Findings All wall segments showed normal motion. Findings: Study Quality * Technically adequate exam. ECG Findings * Normal sinus rhythm. Left Ventricle * LVEF 60-65%. * Normal LV chamber size, wall thickness and function. * Moderate left ventricular diastolic dysfunction. Right Ventricle * Normal right ventricular structure and function. Left Atrium * Moderately dilated left atrium. Right Atrium * Normal right atrial size. Aortic Valve * Trileaflet aortic valve. * No aortic regurgitation. * No aortic stenosis. Mitral Valve * Normal mitral valve structure. * No mitral stenosis. * Mild mitral regurgitation. Tricuspid Valve * Tricuspid valve not well visualized. * No tricuspid regurgitation. * Estimated RA pressure is 3 mmHg. * Estimated RVSP is 22 mmHg. * No pulmonary hypertension. Pulmonic Valve * Pulmonic valve is not well visualized. * No pulmonic stenosis. * No pulmonic regurgitation. Pulmonary Artery * Pulmonary artery not well visualized. Aorta * Normally sized aortic root. Pericardium * There is no pericardial effusion present. Interatrial Septum * No evidence of PFO by color Doppler. IVC * Normal IVC dimensions and inspiratory collapse. Abdomen/Pelvis CT 07/02/19 08:02 IMPRESSION: 1. Mild liver nodularity consistent with cirrhosis but no obvious focal abnormality. Status post cholecystectomy. 2. Fat containing ventral hernia which appears uncomplicated. 3. Bilateral lower lobe lung atelectatic changes. D/ : / 07/02/2019 16:04:28 Yanely Wilkins MD / julienrter Interpreting Provider: Yanely Wilkins MD Consult Discharge Plan - Plan Referrals: Aviva Lewis CNP [Primary Care Provider] - 07/09/19 1:00 pm () Arturo Avelar MD [Partnered Physician] - 08/29/19 3:10 pm Jan Polanco MD [Partnered Physician] - 07/18/19 10:15 am Cathy Mcdonough MD [Partnered Physician] - (Appointment has been requested.) (1) Chest pain Qualifiers: Chest pain type: unspecified Qualified Code(s): R07.9 - Chest pain, unspecified (2) COPD (chronic obstructive pulmonary disease) Qualifiers: COPD type: unspecified COPD Qualified Code(s): J44.9 - Chronic obstructive pulmonary disease, unspecified (3) Diabetes mellitus Qualifiers: Diabetes mellitus type: type 2 Diabetes mellitus buttermilk drier operator insulin use: without buttermilk drier operator use Diabetes mellitus complication status: with other specified complication Qualified Code(s): E11.69 - Type 2 diabetes mellitus with other specified complication (4) CKD (chronic kidney disease) Qualifiers: Chronic kidney disease stage: stage 3 (moderate) Qualified Code(s): N18.3 - Chronic kidney disease, stage 3 (moderate) (6) Hypothyroidism Qualifiers: Hypothyroidism type: unspecified Qualified Code(s): E03.9 - Hypothyroidism, unspecified (9) Afib Qualifiers: Atrial fibrillation type: chronic Qualified Code(s): I48.2 - Chronic atrial fibrillation
[2019-07-03] MEDS: Apixaban 5 MG TABLET PO SCH ×2 (12:35→20:53)
[2019-07-04 03:04] LABS: Calcium 8.4 mg/dL (8.6-10.3); Potassium 4.2 mEq/L (3.5-5.1)
[2019-07-04] MEDS ORDERED: Magnesium Oxide 400 MG TABLET PO SCH (09:00)
[2019-07-04] MEDS ORDERED: Aspirin 81 MG TAB.CHEW PO SCH (09:00)
[2019-07-04] MEDS: Insulin DETEMIR 100 UNIT/ML X5UNITS SQ SCH (09:40)
[2019-07-04] MEDS: Gabapentin 400 MG CAPSULE PO SCH (09:40)
[2019-07-04] MEDS: Insulin LISPRO 300 UNITS/3 ML VIAL SQ SCH ×2 (09:40→11:53)
[2019-07-04] MEDS: Apixaban 5 MG TABLET PO SCH (09:40)
[2019-07-04] MEDS: Diltiazem CD (24hr) 240 MG CAPSULE PO SCH (09:40)
[2019-07-04 11:47] VITALS: BP 190/83
[2019-07-04] MEDS: Nicotine 14 MG PATCH.TD24 TD SCH (11:49)
--- NOTE | 2019-07-04 11:49 | Discharge Summary ---
- NOTES TO OUTPATIENT PROVIDER Notes to Outpatient Provider: Patient will need close follow-up and management of her multiple comorbidities Orders not resulted at time of discharge: Pending orders 07/02/19 08:18 Culture,Blood [BC] Routine Date of Encounter: 07/04/19 Time of Encounter: 11:47 - Discharge Diagnosis (1) Chest pain Priority: Primary Status: Acute Qualifiers: Chest pain type: unspecified Qualified Code(s): R07.9 - Chest pain, unspecified (2) COPD (chronic obstructive pulmonary disease) Priority: Secondary Status: Chronic Qualifiers: COPD type: unspecified COPD Qualified Code(s): J44.9 - Chronic obstructive pulmonary disease, unspecified (3) Diabetes mellitus Priority: Secondary Status: Chronic Qualifiers: Diabetes mellitus type: type 2 Diabetes mellitus longterm insulin use: without longterm use Diabetes mellitus complication status: with other specified complication Qualified Code(s): E11.69 - Type 2 diabetes mellitus with other specified complication (4) CKD (chronic kidney disease) Priority: Secondary Status: Chronic Qualifiers: Chronic kidney disease stage: stage 3 (moderate) Qualified Code(s): N18.3 - Chronic kidney disease, stage 3 (moderate) (5) Essential hypertension Priority: Secondary Status: Chronic (6) Hypothyroidism Priority: Secondary Status: Chronic Qualifiers: Hypothyroidism type: unspecified Qualified Code(s): E03.9 - Hypothyroidism, unspecified (7) Morbid obesity with BMI of 40.0-44.9, adult Priority: Secondary Status: Chronic (8) Tobacco abuse disorder Priority: Secondary Status: Chronic (9) Afib Priority: Secondary Status: Acute Qualifiers: Atrial fibrillation type: chronic Qualified Code(s): I48.2 - Chronic atrial fibrillation (10) Coronary artery disease Priority: Secondary Status: Chronic Qualifiers: Coronary Disease-Associated Artery/Lesion type: [place] artery [place] vs. transplanted heart: y[place] heart Associated angina: without angina Qualified Code(s): I25.10 - Atherosclerotic heart disease of [place] coronary artery without angina pectoris Hospital course: Ms. Bach is a 54 year old female medical history of IBS, COPD, diabetes, CAD with LAD stent in 2011, atrial fibrillation on Eliquis, hypertension, CKD, Charcot foot came in from [facility] after her chest pain. Initially there was suspicion of pneumonia and she was given antibiotics and bronchodilators. CT showed groundglass opacities which are nonspecific in antibiotics were held. There was some elevation in renal function and elevated LFTs however it possibly was left there. White count improved after IV fluids and LFTs decreased as well as lipase. She underwent stress test which was unremarkable. She is completely asymptomatic and without any complaints and wants to go home. She is stable to be followed outpatient to manage her comorbidities closely. Discharge discussed with: patient, nurse - Time Spent with Patient Total time spent providing and/or coordinating discharge services: Time spent: Greater than 30 minutes (40) - Discharge Medications Prescriptions: Continued Atorvastatin [Lipitor] 40 mg PO DAILY Furosemide [Lasix] 40 mg PO BID Aspirin 81 mg PO DAILY Oxycodone HCl/Acetaminophen [Percocet 10-325 mg Tablet] 1 each PO BID PRN PRN Reason: Pain Gabapentin [Neurontin] 1,200 mg PO TID Allopurinol [Zyloprim 100 MG] 100 mg PO DAILY Potassium Chloride [Klor-Con 10] 10 meq PO DAILY Apixaban [Eliquis] 5 mg PO BID Insulin Glargine [Lantus] 60 unit SQ HS Diltiazem CD (24hr) [Cardizem CD] 240 mg PO DAILY #30 cap.er.24h Losartan [Cozaar] 25 mg PO DAILY Magnesium Oxide [Magnesium] 400 mg PO DAILY Omeprazole [PriLOSEC] 20 mg PO BIDAC Home Medications: Aspirin 81 mg PO DAILY 09/13/16 [History] Atorvastatin [Lipitor] 40 mg PO DAILY 09/13/16 [History] Furosemide [Lasix] 40 mg PO BID 09/13/16 [History] Gabapentin [Neurontin] 1,200 mg PO TID 09/13/16 [History] Oxycodone HCl/Acetaminophen [Percocet 10-325 mg Tablet] 1 each PO BID PRN 09/13/16 [History] Allopurinol [Zyloprim 100 MG] 100 mg PO DAILY 11/02/17 [History] Apixaban [Eliquis] 5 mg PO BID 11/02/17 [History] Insulin Glargine [Lantus] 60 unit SQ HS 11/02/17 [History] Potassium Chloride [Klor-Con 10] 10 meq PO DAILY 11/02/17 [History] Diltiazem CD (24hr) [Cardizem CD] 240 mg PO DAILY #30 cap.er.24h 11/03/17 [Rx] Losartan [Cozaar] 25 mg PO DAILY 07/01/19 [History] Magnesium Oxide [Magnesium] 400 mg PO DAILY 07/01/19 [History] Omeprazole [PriLOSEC] 20 mg PO BIDAC 07/01/19 [History] Allergies/Adverse Reactions: Allergy/AdvReac Type Severity Reaction Status Date / Time Penicillins [PCN] AdvReac Hives Verified 04/06/19 11:30 sulfamethoxazole AdvReac Hives Verified 04/06/19 11:30 [From Bactrim] trimethoprim [From Bactrim] AdvReac Hives Verified 03/23/19 13:04 Date of admission: 07/04/19 06:30 Primary care physician: Aviva Lewis, Consults: 07/02/19 08:42 Consult to Nurse Navigator [CONS] Routine Comment: COPD Discharging clinician: Shreyas Varma - Constitutional Vitals: Temp Pulse Resp BP Pulse Ox 97.7 F 58 16 190/83 93 07/04/19 11:44 07/04/19 11:44 07/04/19 11:44 07/04/19 11:44 07/04/19 11:44 Exam: Constitutional: Vitals as noted. Conversant. No Apparent Distress. morbidly ob elodia Respiratory : No accessory muscle use, occasional rhonchi Cardiovascular : RRR, +S1, +S2. no murmur, gallop, rubs. Has reproducible chest wall tenderness GI/Abdominal : Soft, Non-tender, Non-distended, normal bowel sounds, soft, no peritoneal signs. Musculoskeletal: no edema or cyanosis. warm extremities, pulses palpable and symmetrical in UE/LE. Neurological: AO X3, CN II-XII grossly intact, grossly normal motor and sensory exam. Skin: No skin rash, lesions or ulcers noted. - Patient Status Disposition: Home, Self-Care - Discharge Instructions Follow Up With: Aviva Lewis CNP [Primary Care Provider] - 07/09/19 1:00 pm () Arturo Avelar MD [Partnered Physician] - 08/29/19 3:10 pm Jan Polanco MD [Partnered Physician] - 07/18/19 10:15 am Cathy Mcdonough MD [Partnered Physician] - (Appointment has been requested.) - Diet and Activity Activity: increase activity as tolerated
== END 2019-07-04 13:57 | disposition home or self-care (01) | DRG 313 ==
LOC: 3BNU 15:15 → EMEROOARM 15:15 → SUATTDRO 16:45 → 3BNU 18:54
PROVIDERS: ADMIT Student in an Organized Health Care Education/Training Program; ATTEND Internal Medicine

== ENCOUNTER 2020-03-10 16:15 | Inpatient (IN) ==
[2020-03-10] MEDS ORDERED: Isovue-370 500 ML BOTTLE IVP ONE (16:25)
[2020-03-10 17:16] LABS: Basophils # 0.1 K/mcL (0.0-0.2); Basophils % 0.7 %; Eosinophils # 0.3 K/mcL (0.0-0.6); Eosinophils % 3.5 %; Hemoglobin 13.6 g/dL (11.5-15.4); Immature Granulocytes % 0.3 % (0-4); Lymphocytes # 3.2 K/mcL (0.6-4.6); Lymphocytes % 35.6 %; Mean Corpuscular HGB Conc 33.2 g/dL (31.6-35.5); Mean Corpuscular Hemoglobin 29.6 pg (28.0-33.3); Mean Corpuscular Volume 89.1 fL (83.0-100.0); Mean Platelet Volume 8.5 fL (9.4-12.4); Monocytes # 0.7 K/mcL (0.0-1.3); Monocytes % 7.4 %; Neutrophils # 4.8 K/mcL (1.6-8.9); Platelet Count 376 K/mcL (140-400); Red Cell Distribution Width 13.5 % (11.5-14.5); Segmented Neutrophils % 52.5 %; White Blood Count 9.1 K/mcL (4.3-11.1)
[2020-03-10 17:40] LABS: Alanine Aminotransferase 11 Units/L (7-52); Albumin 3.1 g/dL (3.5-5.7); Alkaline Phosphatase 127 Units/L (34-104); Aspartate Amino Transferase 11 Units/L (13-39); BUN/Creatinine Ratio 13 (6-26); Bilirubin,Direct 0.1 mg/dL (0.0-0.2); Bilirubin,Indirect 0.2 mg/dL (0.0-1.0); Bilirubin,Total 0.3 mg/dL (0.3-1.0); Blood Urea Nitrogen 24 mg/dL (6-20); Calcium 8.7 mg/dL (8.6-10.3); Carbon Dioxide 20 mEq/L (23-29); Chloride 108 mEq/L (98-107); Globulin 3.1 g/dL (2.4-3.5); Glucose 234 mg/dL (70-105); Lipase 16 Units/L (11-82); Osmolality,Calculated 294 (280-300); Potassium 4.2 mEq/L (3.5-5.1); Sodium 136 mEq/L (136-145); Total Protein 6.2 g/dL (6.4-8.9); Troponin I < 0.03 ng/mL (< 0.04); eGFR For African Americans 35 (> 60); eGFR For Non-African Americans 29 (> 60)
[2020-03-10] MEDS ORDERED: 0.9 % Sodium Chloride 1,000 ML IVC ONE (17:42)
[2020-03-10 17:45] LABS: INR 1.3; Prothrombin Time 14.2 Seconds (9.4-12.1)
[2020-03-10 17:48] LABS: Activated Partial Thrombo Time 39.2 Seconds (26.0-36.0)
[2020-03-10 18:08] LABS: Bilirubin,Urine Moderate (Negative); Blood,Urine Trace (Negative); Clarity,Urine Turbid (Clear); Color,Urine Dark Yellow (Yellow); Glucose,Urine (UA) 500 mg/dL (Normal); Ketones,Urine Trace mg/dL (Negative); Leukocyte Esterase,Urine Trace (Negative); Nitrite,Urine Negative (Negative); PH,Urine 5.5 pH Units (5.0-8.0); Protein,Urine >=1000 mg/dL (Neg-Trace); Specific Gravity,Urine > 1.030 (1.010-1.025); Urobilinogen,Urine Normal (Normal)
[2020-03-10 18:10] LABS: Squamous Epithelial Cell,Urine Many per lpf (None-Few)
[2020-03-10 18:19] LABS: Hyaline Casts,Urine Moderate per lpf (None-Few)
[2020-03-10 18:20] LABS: Bacteria,Urine Many per hpf (None-Few); WBC,Urine 50-100 per hpf (0-3)
[2020-03-11] MEDS ORDERED: *HR* OxyCODONE/APAP 10/325 TABLET PO PRN (00:04)
[2020-03-11] MEDS ORDERED: *HR* Dextrose 50 % in Water (Syg) 50 ML SYRINGE IVP PRN (00:05)
[2020-03-11] MEDS ORDERED: Ondansetron ODT 4 MG TAB.RAPDIS SL PRN (00:05)
[2020-03-11] MEDS ORDERED: Dextrose Gel 15 GM/37.5 ML TUBE PO PRN ×2 (00:05)
[2020-03-11] MEDS ORDERED: D5% in Water 1,000 ML IVC PRN (00:05)
[2020-03-11] MEDS ORDERED: Naloxone 0.4 MG/ML INJ IVP PRN (00:05)
[2020-03-11] MEDS: Insulin LISPRO 300 UNITS/3 ML VIAL SQ SCH ×4 (00:40→16:29)
[2020-03-11] MEDS: Apixaban 5 MG TABLET PO SCH ×3 (00:40→21:43)
[2020-03-11 01:51] LABS: Basophils # 0.1 K/mcL (0.0-0.2); Basophils % 0.9 %; Eosinophils # 0.4 K/mcL (0.0-0.6); Eosinophils % 5.5 %; Hematocrit 36.3 % (35.3-44.9); Hemoglobin 12.1 g/dL (11.5-15.4); Immature Granulocytes % 0.5 % (0-4); Lymphocytes % 37.5 %; Mean Corpuscular HGB Conc 33.3 g/dL (31.6-35.5); Mean Corpuscular Hemoglobin 30.1 pg (28.0-33.3); Mean Corpuscular Volume 90.3 fL (83.0-100.0); Mean Platelet Volume 8.5 fL (9.4-12.4); Monocytes # 0.6 K/mcL (0.0-1.3); Monocytes % 7.4 %; Neutrophils # 3.9 K/mcL (1.6-8.9); Platelet Count 306 K/mcL (140-400); Red Blood Count 4.02 M/mcL (3.82-4.97); Red Cell Distribution Width 13.7 % (11.5-14.5); Segmented Neutrophils % 48.2 %
[2020-03-11 02:10] LABS: Calcium 8.2 mg/dL (8.6-10.3); Magnesium 1.4 mg/dL (1.6-2.6); Phosphorous 4.6 mg/dL (2.7-4.5); Potassium 3.8 mEq/L (3.5-5.1)
[2020-03-11 02:26] LABS: Thyroid Stimulating Hormone 1.437 mcIU/mL (0.340-5.600)
[2020-03-11 07:53] LABS: Estimated Average Glucose 214 mg/dl
[2020-03-11] MEDS: allopurinoL 100 MG TABLET PO SCH (09:51)
[2020-03-11] MEDS: DilTIAZem CD (24hr) 240 MG CAP.ER.24H PO SCH (09:51)
[2020-03-11] MEDS: Gabapentin 300 MG CAPSULE PO SCH ×3 (09:51→21:43)
[2020-03-11] MEDS: Nicotine 14 MG PATCH.TD24 TD SCH (09:52)
[2020-03-11] MEDS: Aspirin 81 MG TAB.CHEW PO SCH (09:52)
[2020-03-12] MEDS: Insulin LISPRO 300 UNITS/3 ML VIAL SQ SCH ×2 (00:48→06:28)
[2020-03-12 03:29] LABS: Calcium 8.6 mg/dL (8.6-10.3); Magnesium 1.7 mg/dL (1.6-2.6); Phosphorous 4.1 mg/dL (2.7-4.5); Potassium 4.6 mEq/L (3.5-5.1)
[2020-03-12] MEDS: Apixaban 5 MG TABLET PO SCH (08:33)
[2020-03-12] MEDS: Gabapentin 300 MG CAPSULE PO SCH (08:33)
[2020-03-12] MEDS: Aspirin 81 MG TAB.CHEW PO SCH (08:33)
[2020-03-12] MEDS: DilTIAZem CD (24hr) 240 MG CAP.ER.24H PO SCH (08:33)
[2020-03-12] MEDS: allopurinoL 100 MG TABLET PO SCH (08:34)
[2020-03-12] MEDS: Nicotine 14 MG PATCH.TD24 TD SCH (08:34)
[2020-03-12 11:47] VITALS: BP 137/77
== END 2020-03-12 11:53 | disposition home or self-care (01) | DRG 392 ==
LOC: EMEROOARM 16:15 → 3BNU 16:15
PROVIDERS: ADMIT Internal Medicine; ATTEND Internal Medicine

== ENCOUNTER 2021-01-13 08:55 | Inpatient (IN) ==
[2021-01-13] MEDS: 0.9 % Sodium Chloride 1,000 ML IVC SCH ×2 (10:10→20:01)
[2021-01-13] MEDS ORDERED: *HR* FentaNYL (PF) 100 MCG/2 ML VIAL IVP PRN (10:17)
[2021-01-13] MEDS ORDERED: Ondansetron 4 MG/2 ML VIAL IVP PRN (10:17)
[2021-01-13] MEDS ORDERED: Albuterol 2.5 MG/3 ML NEBULIZER IH PRN (10:17)
[2021-01-13] MEDS ORDERED: *HR* OxyCODONE Immed Rel 5 MG TABLET PO PRN (10:17)
[2021-01-13] MEDS ORDERED: Protamine Sulfate 50 MG/5 ML VIAL IVP ONE (10:22)
[2021-01-13] MEDS ORDERED: *HR* Heparin 10,000 UNIT/10 ML VIAL ONE (10:23)
[2021-01-13] MEDS ORDERED: Heparin 1,000 UNITS/500 mL 2,000 ML ONE (10:23)
[2021-01-13] MEDS ORDERED: 0.9 % Sodium Chloride 1,000 ML ONE ×2 (10:23→11:44)
[2021-01-13] MEDS ORDERED: ISOVUE-370 200 ML INFUS..BTL ONE (10:23)
[2021-01-13] MEDS ORDERED: *HR* Labetalol 20 MG/4 ML SYRINGE IVP ONE (11:43)
[2021-01-13] MEDS ORDERED: Lidocaine -MPF 2% 5 ML VIAL SQ ONE (11:43)
[2021-01-13] MEDS ORDERED: *HR* Propofol 200 MG/20 ML VIAL IVP ONE (11:43)
[2021-01-13] MEDS ORDERED: *HR* Phenylephrine 10 MG/ML VIAL IVC ONE (11:43)
[2021-01-13] MEDS ORDERED: *HR* Rocuronium Bromide 50 MG/5 ML VIAL IVP ONE (11:43)
[2021-01-13] MEDS ORDERED: *HR* Succinylcholine 200 MG/10 ML VIAL IVP ONE (11:43)
[2021-01-13] MEDS ORDERED: Ondansetron 4 MG/2 ML VIAL IVP ONE (11:43)
[2021-01-13] MEDS ORDERED: Lidocaine -MPF 4% 5 ML AMPUL TP ONE (11:43)
[2021-01-13] MEDS ORDERED: Perflutren Lipid Microsphere 1.3 ML in 0.9 % Sodium Chloride 8.7 ML IVP PRN (13:06)
[2021-01-13] MEDS ORDERED: Nitroglycerin 0.4 MG TAB.SUBL SL PRN (13:07)
[2021-01-13] MEDS ORDERED: Ondansetron ODT 4 MG TAB.RAPDIS SL PRN (13:07)
[2021-01-13] MEDS: Gabapentin 400 MG CAPSULE PO SCH ×2 (14:44→20:01)
[2021-01-13] MEDS: DilTIAZem CD (24hr) 240 MG CAP.ER.24H PO SCH (14:44)
[2021-01-13] MEDS: Apixaban 5 MG TABLET PO SCH (20:00)
[2021-01-13] MEDS ORDERED: Insulin DETEMIR 100 UNIT/ML X5UNITS SUBQ SCH (21:00)
[2021-01-13] MEDS ORDERED: NON-FORMULARY MEDICATION 1 EACH EACH (Insulin Glargine [Lantus] 300 UNIT/3 ML Mls) SQ SCH (21:00)
[2021-01-14 01:32] LABS: Basophils % 0.2 %; Hemoglobin 11.2 g/dL (11.5-15.4); Immature Granulocytes % 0.4 % (0-4); Lymphocytes # 0.8 K/mcL (0.6-4.6); Lymphocytes % 6.4 %; Mean Corpuscular Hemoglobin 29.7 pg (28.0-33.3); Mean Corpuscular Volume 92.8 fL (83.0-100.0); Mean Platelet Volume 8.3 fL (9.4-12.4); Monocytes # 0.1 K/mcL (0.0-1.3); Monocytes % 0.9 %; Neutrophils # 11.6 K/mcL (1.6-8.9); Platelet Count 340 K/mcL (140-400); Red Blood Count 3.77 M/mcL (3.82-4.97); Red Cell Distribution Width 13.4 % (11.5-14.5); Segmented Neutrophils % 92.1 %; White Blood Count 12.6 K/mcL (4.3-11.1)
[2021-01-14 01:39] LABS: INR 1.2; Prothrombin Time 13.6 Seconds (9.4-12.1)
[2021-01-14 01:52] LABS: Calcium 8.5 mg/dL (8.6-10.3); Potassium 5.1 mEq/L (3.5-5.1)
[2021-01-14] MEDS: 0.9 % Sodium Chloride 1,000 ML IVC SCH (05:56)
[2021-01-14] MEDS: DilTIAZem CD (24hr) 240 MG CAP.ER.24H PO SCH (07:41)
[2021-01-14] MEDS: Gabapentin 400 MG CAPSULE PO SCH (07:41)
[2021-01-14] MEDS: Apixaban 5 MG TABLET PO SCH (07:41)
[2021-01-14] MEDS ORDERED: *HR* Glimepiride 2 MG TABLET PO SCH (08:00)
[2021-01-14] MEDS ORDERED: DilTIAZem CD (24hr) 240 MG CAP.ER.24H PO SCH (09:00)
[2021-01-14] MEDS ORDERED: Aspirin 81 MG TAB.CHEW PO SCH (09:00)
[2021-01-14] MEDS ORDERED: allopurinoL 100 MG TABLET PO SCH (09:00)
[2021-01-14 09:21] VITALS: BP 164/64
== END 2021-01-14 12:16 | disposition home or self-care (01) | DRG 274 ==
LOC: INVDIALAB 08:55 → 2NNU 13:36
PROVIDERS: ADMIT Internal Medicine Cardiovascular Disease; ATTEND Internal Medicine Cardiovascular Disease

== ENCOUNTER 2021-10-12 03:14 | Inpatient (IN) ==
[2021-10-12] MEDS ORDERED: *HR* FentaNYL (PF) 100 MCG/2 ML VIAL ONE (03:23)
[2021-10-12] MEDS ORDERED: *HR* Midazolam HCl 2 MG/2 ML VIAL ONE (03:23)
[2021-10-12] MEDS ORDERED: Nitroglycerin 1,000 MCG/5 ML VIAL IV ONE (03:24)
[2021-10-12] MEDS ORDERED: 0.9 % Sodium Chloride 1,000 ML ONE (03:24)
[2021-10-12] MEDS ORDERED: *HR* Heparin 10,000 UNIT/10 ML VIAL ONE (03:24)
[2021-10-12] MEDS ORDERED: Heparin 1,000 UNITS/500 mL 500 ML ONE (03:24)
[2021-10-12] MEDS ORDERED: Tirofiban 12.5 MG/250ML 12.5 MG/250 ML BAG ONE (03:24)
[2021-10-12] MEDS ORDERED: ISOVUE-370 200 ML INFUS..BTL ONE (03:24)
[2021-10-12] MEDS ORDERED: *HR* Amiodarone 150 MG/3 ML VIAL IVPB ONE (03:57)
[2021-10-12] MEDS ORDERED: *HR* Ticagrelor 90 MG TABLET ONE (04:06)
[2021-10-12] MEDS ORDERED: Ondansetron 4 MG/2 ML VIAL ONE (04:17)
[2021-10-12] MEDS ORDERED: Perflutren Lipid Microsphere 1.3 ML in 0.9 % Sodium Chloride 8.7 ML IVP PRN (04:53)
[2021-10-12] MEDS ORDERED: Tirofiban 12.5 MG/250ML 12.5 MG/250 ML BAG IVC SCH (05:00)
[2021-10-12] MEDS ORDERED: *HR* Atropine Sulfate 1 MG/10 ML SYRINGE ONE (08:22)
[2021-10-12] MEDS ORDERED: Ondansetron 4 MG/2 ML VIAL IVP PRN (09:34)
[2021-10-12] MEDS ORDERED: *HR* Metoprolol 5 MG/5 ML VIAL IVP ONE (10:37)
[2021-10-12] MEDS: Aspirin 81 MG TAB.CHEW PO SCH (13:16)
[2021-10-12] MEDS ORDERED: *HR* OxyCODONE/APAP 10/325 TABLET PO PRN (13:53)
[2021-10-12] MEDS ORDERED: D5% in Water 1,000 ML IVC PRN (14:34)
[2021-10-12] MEDS ORDERED: *HR* Dextrose 50 % in Water (Syg) 50 ML SYRINGE IVP PRN (14:34)
[2021-10-12] MEDS ORDERED: Dextrose Gel 15 GM/37.5 ML TUBE PO PRN ×2 (14:34)
[2021-10-12] MEDS: DilTIAZem CD (24hr) 240 MG CAP.ER.24H PO SCH (15:36)
[2021-10-12] MEDS: Gabapentin 400 MG CAPSULE PO SCH ×2 (15:36→22:04)
[2021-10-12] MEDS: Insulin LISPRO 300 UNITS/3 ML VIAL SUBQ SCH (15:36)
[2021-10-12] MEDS: Isosorbide MONOnitrate (24 HR) 30 MG TAB.ER.24H PO SCH (18:17)
[2021-10-12] MEDS: *HR* Heparin 5,000 UNIT/ML VIAL SQ SCH (21:02)
[2021-10-12] MEDS: *HR* Ticagrelor 90 MG TABLET PO SCH (21:02)
[2021-10-12] MEDS: Insulin DETEMIR 100 UNIT/ML X5UNITS SUBQ SCH (21:02)
[2021-10-13 01:48] LABS: Basophils # 0.1 K/mcL (0.0-0.2); Basophils % 0.6 %; Eosinophils # 0.1 K/mcL (0.0-0.6); Eosinophils % 1.1 %; Hematocrit 35.5 % (35.3-44.9); Hemoglobin 11.3 g/dL (11.5-15.4); Immature Granulocytes % 0.3 % (0-4); Lymphocytes # 3.3 K/mcL (0.6-4.6); Lymphocytes % 30.9 %; Mean Corpuscular HGB Conc 31.8 g/dL (31.6-35.5); Mean Corpuscular Hemoglobin 29.4 pg (28.0-33.3); Mean Corpuscular Volume 92.2 fL (83.0-100.0); Mean Platelet Volume 9.5 fL (9.4-12.4); Neutrophils # 6.3 K/mcL (1.6-8.9); Platelet Count 272 K/mcL (140-400); Red Blood Count 3.85 M/mcL (3.82-4.97); Red Cell Distribution Width 13.4 % (11.5-14.5); Segmented Neutrophils % 58.1 %; White Blood Count 10.8 K/mcL (4.3-11.1)
[2021-10-13 02:00] LABS: Calcium 8.2 mg/dL (8.6-10.3); Potassium 4.1 mEq/L (3.5-5.1)
[2021-10-13] MEDS: *HR* Heparin 5,000 UNIT/ML VIAL SQ SCH ×3 (05:23→20:56)
[2021-10-13] MEDS: Aspirin 81 MG TAB.CHEW PO SCH (07:37)
[2021-10-13] MEDS: FLUoxetine 20 MG CAPSULE PO SCH (07:37)
[2021-10-13] MEDS: allopurinoL 100 MG TABLET PO SCH (07:38)
[2021-10-13] MEDS: Gabapentin 400 MG CAPSULE PO SCH ×3 (07:38→20:55)
[2021-10-13] MEDS: DilTIAZem CD (24hr) 240 MG CAP.ER.24H PO SCH (07:38)
[2021-10-13] MEDS: *HR* Ticagrelor 90 MG TABLET PO SCH ×2 (07:38→20:56)
[2021-10-13] MEDS: Insulin LISPRO 300 UNITS/3 ML VIAL SUBQ SCH ×3 (07:40→16:42)
[2021-10-13] MEDS ORDERED: 0.9 % Sodium Chloride 1,000 ML IVC SCH (10:00)
[2021-10-13] MEDS: Isosorbide MONOnitrate (24 HR) 30 MG TAB.ER.24H PO SCH (10:03)
[2021-10-13 13:42] LABS: Basophils # 0.1 K/mcL (0.0-0.2); Basophils % 0.5 %; Eosinophils # 0.1 K/mcL (0.0-0.6); Eosinophils % 1.2 %; Hematocrit 34.8 % (35.3-44.9); Hemoglobin 11.2 g/dL (11.5-15.4); Immature Granulocytes % 0.4 % (0-4); Lymphocytes # 3.1 K/mcL (0.6-4.6); Lymphocytes % 27.3 %; Mean Corpuscular HGB Conc 32.2 g/dL (31.6-35.5); Mean Corpuscular Hemoglobin 29.9 pg (28.0-33.3); Mean Platelet Volume 9.5 fL (9.4-12.4); Monocytes # 0.9 K/mcL (0.0-1.3); Monocytes % 7.8 %; Neutrophils # 7.2 K/mcL (1.6-8.9); Platelet Count 250 K/mcL (140-400); Red Blood Count 3.74 M/mcL (3.82-4.97); Red Cell Distribution Width 13.3 % (11.5-14.5); Segmented Neutrophils % 62.8 %; White Blood Count 11.4 K/mcL (4.3-11.1)
[2021-10-13] MEDS: Insulin DETEMIR 100 UNIT/ML X5UNITS SUBQ SCH (21:08)
[2021-10-14] MEDS: *HR* Heparin 5,000 UNIT/ML VIAL SQ SCH ×2 (04:56→15:02)
[2021-10-14] MEDS: Insulin LISPRO 300 UNITS/3 ML VIAL SUBQ SCH ×3 (08:03→17:34)
[2021-10-14] MEDS: allopurinoL 100 MG TABLET PO SCH (08:04)
[2021-10-14] MEDS: FLUoxetine 20 MG CAPSULE PO SCH (08:04)
[2021-10-14] MEDS: *HR* Ticagrelor 90 MG TABLET PO SCH ×2 (08:04→20:08)
[2021-10-14] MEDS: DilTIAZem CD (24hr) 240 MG CAP.ER.24H PO SCH (08:04)
[2021-10-14] MEDS: Isosorbide MONOnitrate (24 HR) 30 MG TAB.ER.24H PO SCH (08:04)
[2021-10-14] MEDS: Gabapentin 400 MG CAPSULE PO SCH ×3 (08:04→20:08)
[2021-10-14] MEDS: Aspirin 81 MG TAB.CHEW PO SCH (08:04)
[2021-10-14 08:08] LABS: Albumin 2.9 g/dL (3.5-5.7); Bilirubin,Total 0.8 mg/dL (0.3-1.0); Calcium 8.3 mg/dL (8.6-10.3); Potassium 4.3 mEq/L (3.5-5.1); Total Protein 5.9 g/dL (6.4-8.9)
[2021-10-14 11:19] LABS: Uric Acid 7.7 mg/dL (2.3-7.6)
[2021-10-14] MEDS: Insulin DETEMIR 100 UNIT/ML X5UNITS SUBQ SCH (20:09)
[2021-10-15] MEDS ORDERED: Nitroglycerin 0.4 MG TAB.SUBL SL PRN (04:23)
[2021-10-15] MEDS: *HR* Heparin 5,000 UNIT/ML VIAL SQ SCH ×3 (04:30→15:06)
[2021-10-15] MEDS: Insulin LISPRO 300 UNITS/3 ML VIAL SUBQ SCH ×2 (08:18→11:54)
[2021-10-15] MEDS: allopurinoL 100 MG TABLET PO SCH (08:19)
[2021-10-15] MEDS: FLUoxetine 20 MG CAPSULE PO SCH (08:19)
[2021-10-15] MEDS: Aspirin 81 MG TAB.CHEW PO SCH (08:19)
[2021-10-15] MEDS: Isosorbide MONOnitrate (24 HR) 30 MG TAB.ER.24H PO SCH (08:19)
[2021-10-15] MEDS: DilTIAZem CD (24hr) 240 MG CAP.ER.24H PO SCH (08:19)
[2021-10-15] MEDS: Gabapentin 400 MG CAPSULE PO SCH ×2 (08:20→15:05)
[2021-10-15] MEDS: *HR* Ticagrelor 90 MG TABLET PO SCH (08:21)
[2021-10-15 09:13] LABS: Hematocrit 33.6 % (35.3-44.9); Hemoglobin 11.1 g/dL (11.5-15.4); Mean Corpuscular Hemoglobin 29.9 pg (28.0-33.3); Mean Corpuscular Volume 90.6 fL (83.0-100.0); Mean Platelet Volume 9.9 fL (9.4-12.4); Platelet Count 233 K/mcL (140-400); Red Blood Count 3.71 M/mcL (3.82-4.97); Red Cell Distribution Width 13.1 % (11.5-14.5); White Blood Count 7.5 K/mcL (4.3-11.1)
[2021-10-15 09:30] LABS: Calcium 8.7 mg/dL (8.6-10.3); Potassium 4.5 mEq/L (3.5-5.1)
[2021-10-15 11:26] VITALS: BP 123/101; PULSE 55; TEMP 97.2; O2SAT 96
[2021-10-15] MEDS ORDERED: Nicotine 21 MG PATCH.TD24 TD SCH (11:45)
[2021-10-15] MEDS ORDERED: 0.9 % Sodium Chloride 1,000 ML IVC SCH (12:30)
== END 2021-10-15 16:06 | disposition home or self-care (01) | DRG 247 ==
LOC: 2NNU 04:09
PROVIDERS: ADMIT Internal Medicine Cardiovascular Disease; ATTEND Internal Medicine Cardiovascular Disease

== ENCOUNTER 2021-11-12 19:55 | Inpatient (IN) ==
[2021-11-13] MEDS ORDERED: Naloxone 0.4 MG/ML INJ IVP PRN (01:10)
[2021-11-13] MEDS ORDERED: *HR* HYDROcodone/Acet 5/325 mg TABLET PO PRN (01:10)
[2021-11-13] MEDS ORDERED: Ondansetron ODT 4 MG TAB.RAPDIS SL PRN (01:10)
[2021-11-13] MEDS ORDERED: Melatonin 3 MG TABLET PO PRN (01:10)
[2021-11-13] MEDS ORDERED: *HR* OxyCODONE Immed Rel 5 MG TABLET PO PRN (01:10)
[2021-11-13] MEDS ORDERED: Acetaminophen 325 MG TABLET PO PRN (01:10)
[2021-11-13] MEDS ORDERED: Perflutren Lipid Microsphere 1.3 ML in 0.9 % Sodium Chloride 8.7 ML IVP PRN (01:12)
[2021-11-13] MEDS ORDERED: Nitroglycerin 0.4 MG TAB.SUBL SL PRN (01:13)
[2021-11-13] MEDS ORDERED: *HR* Heparin 5,000 UNIT/ML VIAL IVP PRN (01:45)
[2021-11-13] MEDS ORDERED: *HR* Heparin 5,000 UNIT/ML VIAL IVP ONE (01:45)
[2021-11-13 02:22] LABS: Albumin 3.2 g/dL (3.5-5.7); Bilirubin,Total 0.4 mg/dL (0.3-1.0); Calcium 8.9 mg/dL (8.6-10.3); Chol/HDL Ratio 4.6 (0-4.9); Globulin 3.3 g/dL (2.4-3.5); Magnesium 1.9 mg/dL (1.6-2.6); Phosphorous 4.9 mg/dL (2.7-4.5); Potassium 4.8 mEq/L (3.5-5.1); Total Protein 6.5 g/dL (6.4-8.9)
[2021-11-13] MEDS ORDERED: *HR* Dextrose 50 % in Water (Syg) 50 ML SYRINGE IVP PRN (02:27)
[2021-11-13] MEDS ORDERED: Dextrose Gel 15 GM/37.5 ML TUBE PO PRN ×2 (02:27)
[2021-11-13] MEDS ORDERED: D5% in Water 1,000 ML IVC PRN (02:27)
[2021-11-13 02:34] LABS: Heparin anti-factor XA UFH 0.08 IU/mL (0.30-0.70); Prothrombin Time 11.6 Seconds (9.4-12.1)
[2021-11-13 02:35] LABS: Basophils # 0.1 K/mcL (0.0-0.2); Basophils % 0.9 %; Eosinophils # 0.2 K/mcL (0.0-0.6); Eosinophils % 2.6 %; Hematocrit 37.8 % (35.3-44.9); Hemoglobin 12.6 g/dL (11.5-15.4); Immature Granulocytes % 0.5 % (0-4); Lymphocytes # 2.5 K/mcL (0.6-4.6); Lymphocytes % 28.9 %; Mean Corpuscular HGB Conc 33.3 g/dL (31.6-35.5); Mean Corpuscular Hemoglobin 30.8 pg (28.0-33.3); Mean Corpuscular Volume 92.4 fL (83.0-100.0); Mean Platelet Volume 9.1 fL (9.4-12.4); Monocytes # 0.6 K/mcL (0.0-1.3); Monocytes % 6.8 %; Neutrophils # 5.1 K/mcL (1.6-8.9); Platelet Count 312 K/mcL (140-400); Red Blood Count 4.09 M/mcL (3.82-4.97); Red Cell Distribution Width 13.2 % (11.5-14.5); Segmented Neutrophils % 60.3 %; White Blood Count 8.5 K/mcL (4.3-11.1)
[2021-11-13 02:37] LABS: Activated Partial Thrombo Time 33.8 Seconds (26.0-36.0)
[2021-11-13 03:06] LABS: Troponin I 3.36 ng/mL (< 0.04)
[2021-11-13] MEDS: Heparin 25,000UNIT/250ML 1/2NS 25,000 UNIT/250 ML IV.SOLN IVC SCH (03:40)
[2021-11-13] MEDS: Aspirin 81 MG TAB.CHEW PO SCH (08:16)
[2021-11-13] MEDS: Nystatin POWDER 30 GM BOTTLE TP SCH ×4 (08:16→20:54)
[2021-11-13] MEDS: Nicotine 21 MG PATCH.TD24 TD SCH (08:16)
[2021-11-13] MEDS ORDERED: 0.9 % Sodium Chloride 1,000 ML IVC SCH (09:30)
[2021-11-13] MEDS: *HR* Ticagrelor 90 MG TABLET PO SCH ×2 (11:43→20:54)
[2021-11-13] MEDS: *HR* Heparin 5,000 UNIT/ML VIAL IVP PRN ×2 (11:47→17:30)
[2021-11-13] MEDS: Insulin LISPRO 300 UNITS/3 ML VIAL SUBQ SCH ×3 (11:48→17:35)
[2021-11-13] MEDS: Gabapentin 400 MG CAPSULE PO SCH (20:54)
[2021-11-13] MEDS ORDERED: Ondansetron 4 MG/2 ML VIAL IVP PRN (23:30)
[2021-11-13] MEDS ORDERED: *HR* Labetalol 20 MG/4 ML SYRINGE IVP PRN (23:30)
[2021-11-13] MEDS ORDERED: Ondansetron 4 MG/2 ML VIAL ONE (23:34)
[2021-11-14] MEDS ORDERED: Dextrose Gel 15 GM/37.5 ML TUBE PO PRN ×2 (00:35)
[2021-11-14] MEDS ORDERED: D5% in Water 1,000 ML IVC PRN (00:35)
[2021-11-14] MEDS ORDERED: *HR* Dextrose 50 % in Water (Syg) 50 ML SYRINGE IVP PRN (00:35)
[2021-11-14] MEDS: Heparin 25,000UNIT/250ML 1/2NS 25,000 UNIT/250 ML IV.SOLN IVC SCH ×2 (00:38→21:43)
[2021-11-14] MEDS ORDERED: *HR* Labetalol 20 MG/4 ML SYRINGE IVP ONE (00:47)
[2021-11-14 06:07] LABS: Hematocrit 37.2 % (35.3-44.9)
[2021-11-14 06:27] LABS: Calcium 8.7 mg/dL (8.6-10.3); Magnesium 1.6 mg/dL (1.6-2.6); Phosphorous 2.9 mg/dL (2.7-4.5); Potassium 4.3 mEq/L (3.5-5.1)
[2021-11-14] MEDS: Insulin LISPRO 300 UNITS/3 ML VIAL SUBQ SCH ×5 (06:55→21:42)
[2021-11-14] MEDS: Aspirin 81 MG TAB.CHEW PO SCH (07:46)
[2021-11-14] MEDS: Gabapentin 400 MG CAPSULE PO SCH ×3 (07:46→21:41)
[2021-11-14] MEDS: *HR* Ticagrelor 90 MG TABLET PO SCH ×2 (07:46→21:40)
[2021-11-14] MEDS: FLUoxetine 20 MG CAPSULE PO SCH (07:47)
[2021-11-14] MEDS: Nystatin POWDER 30 GM BOTTLE TP SCH ×3 (07:47→21:43)
[2021-11-14] MEDS: Cyanocobalamin (B-12) 1,000 MCG TABLET PO SCH (07:47)
[2021-11-14] MEDS: Nicotine 21 MG PATCH.TD24 TD SCH (07:47)
[2021-11-14] MEDS: Isosorbide MONOnitrate (24 HR) 30 MG TAB.ER.24H PO SCH (13:00)
[2021-11-15 01:07] LABS: Hematocrit 34.4 % (35.3-44.9); Hemoglobin 10.9 g/dL (11.5-15.4)
[2021-11-15 01:29] LABS: Calcium 8.6 mg/dL (8.6-10.3); Magnesium 1.6 mg/dL (1.6-2.6); Phosphorous 3.6 mg/dL (2.7-4.5); Potassium 4.8 mEq/L (3.5-5.1)
[2021-11-15] MEDS: Nicotine 21 MG PATCH.TD24 TD SCH (08:05)
[2021-11-15] MEDS: Cyanocobalamin (B-12) 1,000 MCG TABLET PO SCH (08:06)
[2021-11-15] MEDS: *HR* Ticagrelor 90 MG TABLET PO SCH ×2 (08:06→19:52)
[2021-11-15] MEDS: Gabapentin 400 MG CAPSULE PO SCH ×3 (08:06→19:51)
[2021-11-15] MEDS: Nystatin POWDER 30 GM BOTTLE TP SCH ×3 (08:06→19:54)
[2021-11-15] MEDS: Aspirin 81 MG TAB.CHEW PO SCH (08:06)
[2021-11-15] MEDS: Isosorbide MONOnitrate (24 HR) 30 MG TAB.ER.24H PO SCH (08:06)
[2021-11-15] MEDS: FLUoxetine 20 MG CAPSULE PO SCH (08:06)
[2021-11-15] MEDS: Insulin LISPRO 300 UNITS/3 ML VIAL SUBQ SCH ×4 (08:07→19:55)
[2021-11-15] MEDS ORDERED: DilTIAZem CD (24hr) 240 MG CAP.ER.24H PO SCH (09:00)
[2021-11-15] MEDS: 0.9 % Sodium Chloride 1,000 ML IVC SCH (11:20)
[2021-11-15] MEDS: Heparin 25,000UNIT/250ML 1/2NS 25,000 UNIT/250 ML IV.SOLN IVC SCH (16:22)
[2021-11-15] MEDS: *HR* Acetylcysteine 20% 600 MG/3 ML ORAL SYRINGE PO SCH (19:49)
[2021-11-16] MEDS: 0.9 % Sodium Chloride 1,000 ML IVC SCH ×2 (00:12→16:54)
[2021-11-16] MEDS ORDERED: Insulin LISPRO 300 UNITS/3 ML VIAL SUBQ ONE (02:36)
[2021-11-16 05:09] LABS: Hematocrit 32.8 % (35.3-44.9); Hemoglobin 10.4 g/dL (11.5-15.4)
[2021-11-16 05:32] LABS: Calcium 8.6 mg/dL (8.6-10.3); Magnesium 1.5 mg/dL (1.6-2.6); Phosphorous 3.6 mg/dL (2.7-4.5); Potassium 4.6 mEq/L (3.5-5.1)
[2021-11-16] MEDS: *HR* Heparin 5,000 UNIT/ML VIAL IVP PRN (06:56)
[2021-11-16] MEDS: Insulin LISPRO 300 UNITS/3 ML VIAL SUBQ SCH ×4 (07:34→19:57)
[2021-11-16] MEDS ORDERED: Perflutren Lipid Microsphere 1.3 ML in 0.9 % Sodium Chloride 8.7 ML IVP PRN (08:10)
[2021-11-16] MEDS: *HR* Acetylcysteine 20% 600 MG/3 ML ORAL SYRINGE PO SCH ×2 (11:00→19:42)
[2021-11-16] MEDS: Cyanocobalamin (B-12) 1,000 MCG TABLET PO SCH (11:02)
[2021-11-16] MEDS: Nicotine 21 MG PATCH.TD24 TD SCH (11:02)
[2021-11-16] MEDS: FLUoxetine 20 MG CAPSULE PO SCH (11:02)
[2021-11-16] MEDS: Gabapentin 400 MG CAPSULE PO SCH ×3 (11:02→19:42)
[2021-11-16] MEDS: *HR* Ticagrelor 90 MG TABLET PO SCH ×2 (11:03→19:57)
[2021-11-16] MEDS: Aspirin 81 MG TAB.CHEW PO SCH (11:03)
[2021-11-16] MEDS: Isosorbide MONOnitrate (24 HR) 30 MG TAB.ER.24H PO SCH (11:03)
[2021-11-16] MEDS: DilTIAZem CD (24hr) 120 MG CAP.ER.24H PO SCH (11:03)
[2021-11-16] MEDS: Nystatin POWDER 30 GM BOTTLE TP SCH ×3 (11:03→19:57)
[2021-11-16] MEDS ORDERED: Heparin 1,000 UNITS/500 mL 500 ML ONE ×2 (11:25→12:02)
[2021-11-16] MEDS ORDERED: ISOVUE-370 200 ML INFUS..BTL ONE ×2 (11:25→12:02)
[2021-11-16] MEDS ORDERED: 0.9 % Sodium Chloride 2,000 ML ONE (11:25)
[2021-11-16] MEDS ORDERED: Nitroglycerin 1,000 MCG/5 ML VIAL IV ONE (11:25)
[2021-11-16] MEDS ORDERED: *HR* Heparin 10,000 UNIT/10 ML VIAL ONE (11:25)
[2021-11-16] MEDS ORDERED: *HR* Midazolam HCl 2 MG/2 ML VIAL ONE (11:53)
[2021-11-16] MEDS ORDERED: *HR* FentaNYL (PF) 100 MCG/2 ML VIAL ONE (11:53)
[2021-11-17 03:51] VITALS: TEMP 97.6
[2021-11-17 05:57] LABS: Basophils % 0.5 %; Eosinophils # 0.2 K/mcL (0.0-0.6); Eosinophils % 2.5 %; Hematocrit 31.5 % (35.3-44.9); Hemoglobin 10.3 g/dL (11.5-15.4); Immature Granulocytes % 0.6 % (0-4); Lymphocytes # 1.9 K/mcL (0.6-4.6); Lymphocytes % 21.9 %; Mean Corpuscular HGB Conc 32.7 g/dL (31.6-35.5); Mean Corpuscular Hemoglobin 30.8 pg (28.0-33.3); Mean Corpuscular Volume 94.3 fL (83.0-100.0); Mean Platelet Volume 9.5 fL (9.4-12.4); Monocytes # 0.6 K/mcL (0.0-1.3); Monocytes % 7.4 %; Neutrophils # 5.8 K/mcL (1.6-8.9); Platelet Count 213 K/mcL (140-400); Red Blood Count 3.34 M/mcL (3.82-4.97); Red Cell Distribution Width 13.5 % (11.5-14.5); Segmented Neutrophils % 67.1 %; White Blood Count 8.6 K/mcL (4.3-11.1)
[2021-11-17 06:18] LABS: Calcium 8.5 mg/dL (8.6-10.3); Potassium 4.9 mEq/L (3.5-5.1)
[2021-11-17 06:22] VITALS: BP 128/113; PULSE 45; O2SAT 98
[2021-11-17 06:23] LABS: Magnesium 1.4 mg/dL (1.6-2.6); Phosphorous 4.1 mg/dL (2.7-4.5)
[2021-11-17] MEDS: *HR* Ticagrelor 90 MG TABLET PO SCH (07:54)
[2021-11-17] MEDS: Cyanocobalamin (B-12) 1,000 MCG TABLET PO SCH (07:54)
[2021-11-17] MEDS: Isosorbide MONOnitrate (24 HR) 30 MG TAB.ER.24H PO SCH (07:54)
[2021-11-17] MEDS: Aspirin 81 MG TAB.CHEW PO SCH (07:54)
[2021-11-17] MEDS: FLUoxetine 20 MG CAPSULE PO SCH (07:54)
[2021-11-17] MEDS: DilTIAZem CD (24hr) 120 MG CAP.ER.24H PO SCH (07:54)
[2021-11-17] MEDS: Nicotine 21 MG PATCH.TD24 TD SCH (07:55)
[2021-11-17] MEDS: Gabapentin 400 MG CAPSULE PO SCH (07:55)
[2021-11-17] MEDS: Insulin LISPRO 300 UNITS/3 ML VIAL SUBQ SCH (07:56)
[2021-11-17] MEDS: *HR* Acetylcysteine 20% 600 MG/3 ML ORAL SYRINGE PO SCH (07:56)
[2021-11-17] MEDS: Nystatin POWDER 30 GM BOTTLE TP SCH (07:57)
== END 2021-11-17 11:41 | disposition home or self-care (01) | DRG 281 ==
LOC: 3NENU → SUATTDRO 11-13 00:54
PROVIDERS: ADMIT Internal Medicine; ATTEND Internal Medicine

== ENCOUNTER 2021-12-25 15:49 | Inpatient (IN) ==
[2021-12-25] MEDS ORDERED: Melatonin 3 MG TABLET PO PRN (20:34)
[2021-12-25] MEDS ORDERED: Acetaminophen 325 MG TABLET PO PRN (20:34)
[2021-12-25] MEDS ORDERED: Ondansetron 4 MG/2 ML VIAL IVP PRN (20:34)
[2021-12-25] MEDS ORDERED: Naloxone 0.4 MG/ML INJ IVP PRN (20:34)
[2021-12-26] MEDS ORDERED: D5% in Water 1,000 ML IVC PRN (00:40)
[2021-12-26] MEDS ORDERED: *HR* Dextrose 50 % in Water (Syg) 50 ML SYRINGE IVP PRN (00:40)
[2021-12-26] MEDS ORDERED: Dextrose 4 GM Chewable Tablets PO PRN ×2 (00:40)
[2021-12-26] MEDS ORDERED: *HR* Heparin 5,000 UNIT/ML VIAL IVP PRN ×2 (00:48)
[2021-12-26] MEDS ORDERED: Heparin 25,000UNIT/250ML 1/2NS 25,000 UNIT/250 ML IV.SOLN IVC SCH (01:00)
[2021-12-26 03:27] LABS: Basophils # 0.1 K/mcL (0.0-0.2); Basophils % 0.9 %; Eosinophils # 0.4 K/mcL (0.0-0.6); Eosinophils % 5.3 %; Hematocrit 35.7 % (35.3-44.9); Hemoglobin 11.6 g/dL (11.5-15.4); Immature Granulocytes % 0.5 % (0-4); Lymphocytes # 2.9 K/mcL (0.6-4.6); Lymphocytes % 37.8 %; Mean Corpuscular HGB Conc 32.5 g/dL (31.6-35.5); Mean Corpuscular Hemoglobin 30.1 pg (28.0-33.3); Mean Corpuscular Volume 92.7 fL (83.0-100.0); Mean Platelet Volume 9.4 fL (9.4-12.4); Monocytes # 0.6 K/mcL (0.0-1.3); Monocytes % 7.7 %; Neutrophils # 3.7 K/mcL (1.6-8.9); Platelet Count 265 K/mcL (140-400); Red Blood Count 3.85 M/mcL (3.82-4.97); Red Cell Distribution Width 14.2 % (11.5-14.5); Segmented Neutrophils % 47.8 %; White Blood Count 7.7 K/mcL (4.3-11.1)
[2021-12-26 03:51] LABS: Albumin 3.1 g/dL (3.5-5.7); Bilirubin,Total 0.3 mg/dL (0.3-1.0); Calcium 8.7 mg/dL (8.6-10.3); Globulin 3.2 g/dL (2.4-3.5); Magnesium 1.7 mg/dL (1.6-2.6); Phosphorous 3.9 mg/dL (2.7-4.5); Potassium 4.3 mEq/L (3.5-5.1); Total Protein 6.3 g/dL (6.4-8.9); Troponin I 0.08 ng/mL (< 0.04)
[2021-12-26] MEDS: Insulin LISPRO 300 UNITS/3 ML VIAL SUBQ SCH ×3 (05:43→16:31)
[2021-12-26] MEDS ORDERED: *HR* Heparin 5,000 UNIT/ML VIAL SQ SCH (06:00)
[2021-12-26] MEDS: DilTIAZem CD (24hr) 120 MG CAP.ER.24H PO SCH ×2 (07:43→08:42)
[2021-12-26] MEDS: *HR* Ticagrelor 90 MG TABLET PO SCH ×2 (09:51→19:44)
[2021-12-26] MEDS: Aspirin Enteric Coated 81 MG Tablet PO SCH (09:51)
[2021-12-26] MEDS ORDERED: *HR* OxyCODONE/APAP 10/325 TABLET PO PRN (12:29)
[2021-12-26] MEDS ORDERED: Ergocalciferol (VIT D2) 50,000 UNIT (1.25MG) CAP PO SCH (12:30)
[2021-12-26] MEDS ORDERED: *HR* Midazolam HCl 2 MG/2 ML VIAL ONE (13:54)
[2021-12-26] MEDS ORDERED: *HR* FentaNYL (PF) 100 MCG/2 ML VIAL ONE (13:54)
[2021-12-26] MEDS ORDERED: Heparin 1,000 UNITS/500 mL 500 ML ONE (13:55)
[2021-12-26] MEDS ORDERED: ISOVUE-370 200 ML INFUS..BTL ONE (13:55)
[2021-12-26] MEDS ORDERED: Nitroglycerin 1,000 MCG/5 ML VIAL IV ONE (13:55)
[2021-12-26] MEDS ORDERED: *HR* Heparin 10,000 UNIT/10 ML VIAL ONE (13:55)
[2021-12-26] MEDS ORDERED: 0.9 % Sodium Chloride 2,000 ML ONE (13:55)
[2021-12-26] MEDS ORDERED: Ondansetron 4 MG/2 ML VIAL ONE (14:15)
[2021-12-26] MEDS ORDERED: Nitroglycerin 0.4 MG TAB.SUBL SL PRN (16:42)
[2021-12-26] MEDS: Ranolazine 500 MG TAB.ER.12H PO SCH (19:44)
[2021-12-26] MEDS ORDERED: Insulin LISPRO 300 UNITS/3 ML VIAL SUBQ SCH (21:00)
[2021-12-26] MEDS ORDERED: Insulin DETEMIR 100 UNIT/ML X5UNITS SUBQ SCH (21:00)
[2021-12-27 06:03] LABS: Basophils # 0.1 K/mcL (0.0-0.2); Basophils % 0.5 %; Eosinophils # 0.5 K/mcL (0.0-0.6); Eosinophils % 5.5 %; Hematocrit 36.6 % (35.3-44.9); Hemoglobin 12.1 g/dL (11.5-15.4); Immature Granulocytes % 0.3 % (0-4); Lymphocytes # 2.6 K/mcL (0.6-4.6); Lymphocytes % 27.3 %; Mean Corpuscular HGB Conc 33.1 g/dL (31.6-35.5); Mean Corpuscular Hemoglobin 30.9 pg (28.0-33.3); Mean Corpuscular Volume 93.4 fL (83.0-100.0); Mean Platelet Volume 9.4 fL (9.4-12.4); Monocytes # 0.7 K/mcL (0.0-1.3); Monocytes % 6.7 %; Neutrophils # 5.7 K/mcL (1.6-8.9); Platelet Count 270 K/mcL (140-400); Red Blood Count 3.92 M/mcL (3.82-4.97); Segmented Neutrophils % 59.7 %; White Blood Count 9.6 K/mcL (4.3-11.1)
[2021-12-27 06:11] LABS: INR 1.1
[2021-12-27 06:24] LABS: Calcium 8.9 mg/dL (8.6-10.3); Magnesium 1.9 mg/dL (1.6-2.6); Potassium 4.8 mEq/L (3.5-5.1)
[2021-12-27 07:18] VITALS: TEMP 98; O2SAT 97
[2021-12-27] MEDS: Ranolazine 500 MG TAB.ER.12H PO SCH (07:28)
[2021-12-27] MEDS: *HR* Ticagrelor 90 MG TABLET PO SCH (07:28)
[2021-12-27] MEDS: DilTIAZem CD (24hr) 120 MG CAP.ER.24H PO SCH (07:28)
[2021-12-27] MEDS: Aspirin Enteric Coated 81 MG Tablet PO SCH (07:28)
[2021-12-27] MEDS: Insulin LISPRO 300 UNITS/3 ML VIAL SUBQ SCH (07:32)
[2021-12-27] MEDS ORDERED: Cyanocobalamin (B-12) 1,000 MCG TABLET PO SCH (09:00)
[2021-12-27] MEDS ORDERED: FLUoxetine 20 MG CAPSULE PO SCH (09:00)
[2021-12-27] MEDS ORDERED: Isosorbide MONOnitrate (24 HR) 30 MG TAB.ER.24H PO SCH (09:00)
[2021-12-27 09:26] VITALS: BP 131/84; PULSE 67
== END 2021-12-27 11:41 | disposition home or self-care (01) | DRG 281 ==
LOC: 3BNU → SUATTDRO 18:53
PROVIDERS: ADMIT Hospitalist; ATTEND Internal Medicine

== ENCOUNTER 2022-03-02 14:29 | Inpatient (IN) ==
[2022-03-02] MEDS ORDERED: D5% in Water 1,000 ML IVC PRN (17:56)
[2022-03-02] MEDS ORDERED: Dextrose 4 GM Chewable Tablets PO PRN ×2 (17:56)
[2022-03-02] MEDS ORDERED: Acetaminophen 325 MG TABLET PO PRN (18:34)
[2022-03-02] MEDS ORDERED: Naloxone 0.4 MG/ML INJ IVP PRN (18:34)
[2022-03-02] MEDS ORDERED: Cefepime HCl 1,000 MG in 0.9 % Sodium Chloride 10 ML IVP SCH (19:00)
[2022-03-02 19:44] LABS: Estimated Average Glucose 186 mg/dl; Hemoglobin A1C 8.1 %
[2022-03-02] MEDS: Insulin LISPRO 300 UNITS/3 ML VIAL SUBQ SCH (19:52)
[2022-03-02] MEDS: Ringers Solution, Lactated 1,000 ML IVC SCH (19:55)
[2022-03-02 20:28] LABS: Basophils % 0.1 %; Eosinophils % 0.2 %; Hematocrit 28.8 % (35.3-44.9); Hemoglobin 9.5 g/dL (11.5-15.4); Immature Granulocytes % 0.4 % (0-4); Lymphocytes # 1.6 K/mcL (0.6-4.6); Lymphocytes % 9.8 %; Mean Corpuscular Hemoglobin 30.6 pg (28.0-33.3); Mean Corpuscular Volume 92.9 fL (83.0-100.0); Monocytes # 0.8 K/mcL (0.0-1.3); Monocytes % 5.1 %; Neutrophils # 13.5 K/mcL (1.6-8.9); Platelet Count 260 K/mcL (140-400); Red Cell Distribution Width 14.8 % (11.5-14.5); Segmented Neutrophils % 84.4 %
[2022-03-02 20:46] LABS: ABG Base Excess -3 mEq/L (-2 to 3); ABG HCO3 20 mEq/L (21-27); ABG Oxygen Saturation 95 % (95-98); ABG PCO2 29 mmHg (35-45); ABG PH 7.45 pH Units (7.32-7.45); ABG PO2 72 mmHg (85-104); ABG TCO2 21 mEq/L (20-26)
[2022-03-02 20:52] LABS: Acetaminophen < 10 mcg/mL (10-20); Alanine Aminotransferase 45 Units/L (7-52); Albumin 2.9 g/dL (3.5-5.7); Alkaline Phosphatase 151 Units/L (34-104); Aspartate Amino Transferase 39 Units/L (13-39); BUN/Creatinine Ratio 18 (6-26); Bilirubin,Total 0.6 mg/dL (0.3-1.0); Blood Urea Nitrogen 41 mg/dL (6-20); Calcium 8.3 mg/dL (8.6-10.3); Carbon Dioxide 19 mEq/L (23-29); Chloride 109 mEq/L (98-107); Creatine Kinase 978 Units/L (30-223); Ethanol < 10 mg/dL (Less than 10); Glucose 114 mg/dL (70-105); Magnesium 1.7 mg/dL (1.6-2.6); Osmolality,Calculated 293 (280-300); Phosphorous 3.8 mg/dL (2.7-4.5); Potassium 3.5 mEq/L (3.5-5.1); Salicylate < 2.5 mg/dL (15.0-30.0); Sodium 136 mEq/L (136-145); Total Protein 5.9 g/dL (6.4-8.9); Troponin I 0.04 ng/mL (< 0.04); eGFR For African Americans 27 (> 60); eGFR For Non-African Americans 22 (> 60)
[2022-03-02 20:56] LABS: Bilirubin,Urine Negative (Negative); Blood,Urine Trace (Negative); Clarity,Urine Clear (Clear); Color,Urine Light-Yellow (Yellow); Glucose,Urine (UA) Normal (Normal); Hyaline Casts,Urine Few per lpf (None Seen); Ketones,Urine Negative (Negative); Leukocyte Esterase,Urine Negative (Negative); Mucus,Urine Few per lpf (None-Few); Nitrite,Urine Negative (Negative); Protein,Urine 200 mg/dL (Neg-Trace); RBC,Urine 0-3 per hpf (0-3); Specific Gravity,Urine 1.014 (1.010-1.025); Squamous Epithelial Cell,Urine Few per hpf (None-Few); Urobilinogen,Urine Normal (Normal); WBC,Urine 0-3 per hpf (0-3)
[2022-03-02] MEDS ORDERED: methylPREDNISolone 125 MG/2 ML VIAL IVP ONE (20:59)
[2022-03-02] MEDS ORDERED: Ringers Solution, Lactated 1,000 ML IVC ONE (21:01)
[2022-03-02 21:05] LABS: Amphetamine Screen,Urine Negative ng/mL (Cutoff=1000); Barbiturate Screen,Urine Negative ng/mL (Cutoff=200); Benzodiazepines Screen,Urine Negative ng/mL (Cutoff=200); Cannabinoid Screen,Urine Negative ng/mL (Cutoff = 50); Cocaine Screen,Urine Negative ng/mL (Cutoff= 300); Opiate Screen,Urine Negative ng/mL (Cutoff=300); Phencyclidine Screen,Urine Negative ng/mL (Cutoff=25)
[2022-03-02 21:21] LABS: INR 1.4; Prothrombin Time 15.4 Seconds (9.4-12.1)
[2022-03-02 21:24] LABS: Activated Partial Thrombo Time 29.2 Seconds (26.0-36.0)
[2022-03-02 21:35] LABS: Thyroid Stimulating Hormone 0.533 mcIU/mL (0.340-5.600)
[2022-03-02] MEDS: *HR* Dextrose 50 % in Water (Syg) 50 ML SYRINGE IVP PRN (22:59)
[2022-03-02] MEDS: Ipratropium/Albuterol Neb 3 ML IH SCH ×2 (23:41→23:45)
[2022-03-02] MEDS: Budesonide/Formoterol 160/4.5 1 PUFF INH IH SCH (23:42)
[2022-03-03] MEDS: MethylPREDNISolone 40 MG/ML VIAL IVP SCH ×2 (00:11→10:22)
[2022-03-03] MEDS: Ipratropium/Albuterol Neb 3 ML IH SCH ×6 (04:07→23:22)
[2022-03-03] MEDS: Budesonide/Formoterol 160/4.5 1 PUFF INH IH SCH ×2 (07:17→20:31)
[2022-03-03 08:28] LABS: Basophils % 0.1 %; Hematocrit 32.5 % (35.3-44.9); Hemoglobin 10.8 g/dL (11.5-15.4); Lymphocytes # 0.5 K/mcL (0.6-4.6); Lymphocytes % 3.2 %; Mean Corpuscular HGB Conc 33.2 g/dL (31.6-35.5); Mean Corpuscular Hemoglobin 30.9 pg (28.0-33.3); Mean Corpuscular Volume 93.1 fL (83.0-100.0); Monocytes # 0.2 K/mcL (0.0-1.3); Neutrophils # 15.7 K/mcL (1.6-8.9); Platelet Count 279 K/mcL (140-400); Red Blood Count 3.49 M/mcL (3.82-4.97); Red Cell Distribution Width 14.7 % (11.5-14.5); Segmented Neutrophils % 94.7 %; White Blood Count 16.6 K/mcL (4.3-11.1)
[2022-03-03 08:35] LABS: INR 1.3; Prothrombin Time 14.1 Seconds (9.4-12.1)
[2022-03-03 08:47] LABS: Magnesium 1.8 mg/dL (1.6-2.6)
[2022-03-03] MEDS: Cefepime HCl 2,000 MG in 0.9 % Sodium Chloride Mini Bag 100 ML IVPB SCH ×2 (10:20→20:26)
[2022-03-03] MEDS: Insulin LISPRO 300 UNITS/3 ML VIAL SUBQ SCH ×4 (11:20→20:27)
[2022-03-03] MEDS ORDERED: Nitroglycerin 0.4 MG TAB.SUBL SL PRN (12:18)
[2022-03-03] MEDS: DilTIAZem CD (24hr) 120 MG CAP.ER.24H PO SCH (12:28)
[2022-03-03] MEDS: allopurinoL 100 MG TABLET PO SCH (14:08)
[2022-03-03] MEDS: Furosemide 40 MG TABLET PO SCH (14:09)
[2022-03-03] MEDS: *HR* Ticagrelor 90 MG TABLET PO SCH ×2 (14:09→20:26)
[2022-03-03] MEDS: Gabapentin 400 MG CAPSULE PO SCH ×2 (17:48→20:26)
[2022-03-03] MEDS: Melatonin 3 MG TABLET PO PRN (20:25)
[2022-03-03] MEDS: Insulin DETEMIR 100 UNIT/ML X5UNITS SUBQ SCH (20:31)
[2022-03-03] MEDS ORDERED: Vancomycin 1,250 MG/262.5 ML IV.SOLN IVPB SCH (22:00)
[2022-03-03] MEDS: Vancomycin 1,500 MG/265 ML IV.SOLN IVPB SCH (23:48)
[2022-03-04] MEDS: Ipratropium/Albuterol Neb 3 ML IH SCH ×6 (04:23→22:54)
[2022-03-04 05:38] LABS: BUN/Creatinine Ratio 26 (6-26); Blood Urea Nitrogen 58 mg/dL (6-20); eGFR For African Americans 27 (> 60); eGFR For Non-African Americans 23 (> 60)
[2022-03-04] MEDS: *HR* Enoxaparin 40 MG/0.4 ML SYRINGE SQ SCH (05:48)
[2022-03-04] MEDS: Budesonide/Formoterol 160/4.5 1 PUFF INH IH SCH ×2 (08:09→20:18)
[2022-03-04 08:21] LABS: Basophils % 0.3 %; Eosinophils % 0.1 %; Hematocrit 30.1 % (35.3-44.9); Hemoglobin 9.7 g/dL (11.5-15.4); Immature Granulocytes % 0.7 % (0-4); Lymphocytes # 1.7 K/mcL (0.6-4.6); Lymphocytes % 10.8 %; Mean Corpuscular HGB Conc 32.2 g/dL (31.6-35.5); Mean Corpuscular Hemoglobin 30.6 pg (28.0-33.3); Mean Platelet Volume 8.8 fL (9.4-12.4); Monocytes # 0.9 K/mcL (0.0-1.3); Monocytes % 5.8 %; Neutrophils # 12.8 K/mcL (1.6-8.9); Platelet Count 277 K/mcL (140-400); Red Blood Count 3.17 M/mcL (3.82-4.97); Red Cell Distribution Width 14.8 % (11.5-14.5); Segmented Neutrophils % 82.3 %; White Blood Count 15.6 K/mcL (4.3-11.1)
[2022-03-04] MEDS: *HR* Ticagrelor 90 MG TABLET PO SCH ×2 (08:25→21:26)
[2022-03-04] MEDS: Furosemide 40 MG TABLET PO SCH (08:26)
[2022-03-04] MEDS: DilTIAZem CD (24hr) 120 MG CAP.ER.24H PO SCH (08:26)
[2022-03-04] MEDS: Aspirin 81 MG TAB.CHEW PO SCH (08:26)
[2022-03-04] MEDS: Gabapentin 400 MG CAPSULE PO SCH ×3 (08:26→21:05)
[2022-03-04] MEDS: Cyanocobalamin (B-12) 1,000 MCG TABLET PO SCH (08:27)
[2022-03-04] MEDS: allopurinoL 100 MG TABLET PO SCH (08:27)
[2022-03-04] MEDS: Isosorbide MONOnitrate (24 HR) 30 MG TAB.ER.24H PO SCH (08:27)
[2022-03-04] MEDS: FLUoxetine 20 MG CAPSULE PO SCH (08:27)
[2022-03-04] MEDS: Insulin LISPRO 300 UNITS/3 ML VIAL SUBQ SCH ×4 (08:34→21:05)
[2022-03-04 08:40] LABS: Albumin 2.9 g/dL (3.5-5.7); Albumin/Globulin Ratio 0.9 (1.1-2.2); Bilirubin,Total 0.4 mg/dL (0.3-1.0); Calcium 8.7 mg/dL (8.6-10.3); Globulin 3.4 g/dL (2.4-3.5); Potassium 4.4 mEq/L (3.5-5.1); Total Protein 6.3 g/dL (6.4-8.9)
[2022-03-04] MEDS: Cefepime HCl 2,000 MG in 0.9 % Sodium Chloride Mini Bag 100 ML IVPB SCH ×2 (10:03→20:59)
[2022-03-04] MEDS: Ringers Solution, Lactated 1,000 ML IVC SCH ×4 (13:38→21:15)
[2022-03-04] MEDS: metroNIDAZOLE 500 MG TABLET PO SCH (21:05)
[2022-03-04] MEDS: *HR* Acetylcysteine 20% 600 MG/3 ML ORAL SYRINGE PO SCH (21:17)
[2022-03-04] MEDS: Insulin DETEMIR 100 UNIT/ML X5UNITS SUBQ SCH (21:18)
[2022-03-04] MEDS: Melatonin 3 MG TABLET PO PRN (21:26)
[2022-03-04] MEDS: Vancomycin 1,500 MG/265 ML IV.SOLN IVPB SCH (23:43)
[2022-03-05] MEDS: Ipratropium/Albuterol Neb 3 ML IH SCH ×6 (04:35→23:21)
[2022-03-05] MEDS: Ondansetron ODT 4 MG TAB.RAPDIS SL PRN (04:58)
[2022-03-05] MEDS ORDERED: *HR* Labetalol 20 MG/4 ML SYRINGE IVP ONE (05:02)
[2022-03-05] MEDS: *HR* Enoxaparin 40 MG/0.4 ML SYRINGE SQ SCH (06:05)
[2022-03-05] MEDS: Ringers Solution, Lactated 1,000 ML IVC SCH ×2 (06:06→16:35)
[2022-03-05] MEDS: *HR* OxyCODONE/APAP 10/325 TABLET PO PRN (06:55)
[2022-03-05] MEDS ORDERED: Lidocaine 1% 20 ML MDV ONE (07:46)
[2022-03-05] MEDS ORDERED: *HR* Midazolam HCl 2 MG/2 ML VIAL ONE ×2 (07:54→10:17)
[2022-03-05] MEDS ORDERED: *HR* FentaNYL (PF) 100 MCG/2 ML VIAL ONE ×2 (07:54→10:16)
[2022-03-05] MEDS ORDERED: Lidocaine -MPF 2% 2 ML VIAL ONE (07:56)
[2022-03-05] MEDS ORDERED: Ketamine HCL *QUVA* 50mg (1mL) SYRINGE ONE (08:27)
[2022-03-05] MEDS ORDERED: *HR* Heparin 10,000 UNIT/10 ML VIAL ONE (10:17)
[2022-03-05] MEDS ORDERED: Heparin 1,000 UNITS/500 mL 0 ML ONE (10:17)
[2022-03-05] MEDS: Aspirin 81 MG TAB.CHEW PO SCH (10:47)
[2022-03-05] MEDS: *HR* Ticagrelor 90 MG TABLET PO SCH ×2 (10:47→19:30)
[2022-03-05] MEDS: DilTIAZem CD (24hr) 120 MG CAP.ER.24H PO SCH (10:48)
[2022-03-05] MEDS: allopurinoL 100 MG TABLET PO SCH (10:48)
[2022-03-05] MEDS: FLUoxetine 20 MG CAPSULE PO SCH (10:49)
[2022-03-05] MEDS: Cyanocobalamin (B-12) 1,000 MCG TABLET PO SCH (10:49)
[2022-03-05] MEDS: Gabapentin 400 MG CAPSULE PO SCH ×3 (10:50→20:11)
[2022-03-05] MEDS: Furosemide 40 MG TABLET PO SCH (10:50)
[2022-03-05] MEDS: Isosorbide MONOnitrate (24 HR) 30 MG TAB.ER.24H PO SCH (10:50)
[2022-03-05] MEDS: metroNIDAZOLE 500 MG TABLET PO SCH ×3 (10:53→20:11)
[2022-03-05] MEDS: Cefepime HCl 2,000 MG in 0.9 % Sodium Chloride Mini Bag 100 ML IVPB SCH ×2 (10:53→20:12)
[2022-03-05] MEDS: Budesonide/Formoterol 160/4.5 1 PUFF INH IH SCH ×2 (11:01→20:19)
[2022-03-05] MEDS: Insulin LISPRO 300 UNITS/3 ML VIAL SUBQ SCH ×4 (11:42→19:35)
[2022-03-05] MEDS: *HR* Acetylcysteine 20% 600 MG/3 ML ORAL SYRINGE PO SCH ×2 (11:44→20:11)
[2022-03-05 14:23] LABS: Basophils # 0.1 K/mcL (0.0-0.2); Basophils % 0.5 %; Eosinophils # 0.1 K/mcL (0.0-0.6); Hematocrit 29.1 % (35.3-44.9); Hemoglobin 9.1 g/dL (11.5-15.4); Immature Granulocytes % 0.8 % (0-4); Lymphocytes # 2.2 K/mcL (0.6-4.6); Lymphocytes % 17.2 %; Mean Corpuscular HGB Conc 31.3 g/dL (31.6-35.5); Mean Corpuscular Hemoglobin 30.2 pg (28.0-33.3); Mean Corpuscular Volume 96.7 fL (83.0-100.0); Monocytes % 7.9 %; Neutrophils # 9.2 K/mcL (1.6-8.9); Platelet Count 279 K/mcL (140-400); Red Blood Count 3.01 M/mcL (3.82-4.97); Red Cell Distribution Width 14.8 % (11.5-14.5); Segmented Neutrophils % 72.6 %; White Blood Count 12.7 K/mcL (4.3-11.1)
[2022-03-05 14:46] LABS: Albumin 2.9 g/dL (3.5-5.7); Albumin/Globulin Ratio 0.9 (1.1-2.2); Bilirubin,Total 0.7 mg/dL (0.3-1.0); Calcium 8.7 mg/dL (8.6-10.3); Globulin 3.3 g/dL (2.4-3.5); Potassium 4.4 mEq/L (3.5-5.1); Total Protein 6.2 g/dL (6.4-8.9)
[2022-03-05 16:47] LABS: Hematocrit 27.1 % (35.3-44.9); Hemoglobin 8.7 g/dL (11.5-15.4)
[2022-03-05] MEDS: Insulin DETEMIR 100 UNIT/ML X5UNITS SUBQ SCH (20:12)
[2022-03-05 20:42] LABS: Hematocrit 26.9 % (35.3-44.9); Hemoglobin 9.2 g/dL (11.5-15.4)
[2022-03-05] MEDS: Vancomycin 1,500 MG/265 ML IV.SOLN IVPB SCH (22:43)
[2022-03-06] MEDS: Ringers Solution, Lactated 1,000 ML IVC SCH (02:45)
[2022-03-06] MEDS: Ipratropium/Albuterol Neb 3 ML IH SCH ×6 (03:59→23:15)
[2022-03-06] MEDS: *HR* Enoxaparin 40 MG/0.4 ML SYRINGE SQ SCH (05:14)
[2022-03-06 06:47] LABS: Basophils # 0.1 K/mcL (0.0-0.2); Basophils % 0.5 %; Eosinophils # 0.3 K/mcL (0.0-0.6); Eosinophils % 1.6 %; Hematocrit 24.4 % (35.3-44.9); Hemoglobin 8.2 g/dL (11.5-15.4); Lymphocytes % 12.1 %; Mean Corpuscular HGB Conc 33.6 g/dL (31.6-35.5); Mean Corpuscular Hemoglobin 31.2 pg (28.0-33.3); Mean Corpuscular Volume 92.8 fL (83.0-100.0); Mean Platelet Volume 8.9 fL (9.4-12.4); Monocytes # 1.2 K/mcL (0.0-1.3); Monocytes % 7.2 %; Neutrophils # 13.1 K/mcL (1.6-8.9); Platelet Count 275 K/mcL (140-400); Red Blood Count 2.63 M/mcL (3.82-4.97); Red Cell Distribution Width 14.6 % (11.5-14.5); Segmented Neutrophils % 77.6 %; White Blood Count 16.8 K/mcL (4.3-11.1)
[2022-03-06 07:08] LABS: Calcium 8.5 mg/dL (8.6-10.3); Potassium 4.3 mEq/L (3.5-5.1)
[2022-03-06] MEDS: Budesonide/Formoterol 160/4.5 1 PUFF INH IH SCH ×2 (07:41→20:03)
[2022-03-06] MEDS: allopurinoL 100 MG TABLET PO SCH (07:44)
[2022-03-06] MEDS: Gabapentin 400 MG CAPSULE PO SCH ×3 (07:44→20:31)
[2022-03-06] MEDS: metroNIDAZOLE 500 MG TABLET PO SCH ×3 (07:44→20:29)
[2022-03-06] MEDS: Furosemide 40 MG TABLET PO SCH (07:45)
[2022-03-06] MEDS: Cyanocobalamin (B-12) 1,000 MCG TABLET PO SCH (07:45)
[2022-03-06] MEDS: Isosorbide MONOnitrate (24 HR) 30 MG TAB.ER.24H PO SCH (07:45)
[2022-03-06] MEDS: Aspirin 81 MG TAB.CHEW PO SCH (07:45)
[2022-03-06] MEDS: Ondansetron ODT 4 MG TAB.RAPDIS SL PRN (08:00)
[2022-03-06] MEDS: FLUoxetine 20 MG CAPSULE PO SCH (08:00)
[2022-03-06] MEDS: Cefepime HCl 2,000 MG in 0.9 % Sodium Chloride Mini Bag 100 ML IVPB SCH ×2 (08:01→20:24)
[2022-03-06] MEDS: *HR* Acetylcysteine 20% 600 MG/3 ML ORAL SYRINGE PO SCH (08:01)
[2022-03-06] MEDS: DilTIAZem CD (24hr) 120 MG CAP.ER.24H PO SCH (08:01)
[2022-03-06] MEDS: *HR* Ticagrelor 90 MG TABLET PO SCH ×2 (08:01→20:25)
[2022-03-06] MEDS ORDERED: *HR* Metoprolol 5 MG/5 ML VIAL IVP ONE ×2 (08:18→08:19)
[2022-03-06] MEDS ORDERED: Furosemide 40 MG/4 ML VIAL IVP ONE (08:26)
[2022-03-06 08:29] LABS: ABG Base Excess -5 mEq/L (-2 to 3); ABG HCO3 18 mEq/L (21-27); ABG Oxygen Saturation 95 % (95-98); ABG PCO2 23 mmHg (35-45); ABG PO2 64 mmHg (85-104); ABG TCO2 18 mEq/L (20-26)
[2022-03-06] MEDS ORDERED: *HR* Adenosine 6 MG/2 ML SYRINGE IVP ONE ×2 (08:41→09:15)
[2022-03-06] MEDS: Insulin LISPRO 300 UNITS/3 ML VIAL SUBQ SCH ×4 (08:46→21:12)
[2022-03-06] MEDS ORDERED: *HR* Adenosine 6 MG/2 ML VIAL IVP ONE (09:05)
[2022-03-06 09:45] LABS: Magnesium 1.6 mg/dL (1.6-2.6)
[2022-03-06] MEDS ORDERED: *HR* Digoxin 0.5 MG/2 ML AMPUL IVP ONE ×2 (11:10→12:30)
[2022-03-06] MEDS ORDERED: Albumin 25% 25gram/100mL 25 GM/100 ML IV.SOLN IVPB ONE (11:14)
[2022-03-06] MEDS: *HR* Dextrose 50 % in Water (Syg) 50 ML SYRINGE IVP PRN (11:47)
[2022-03-06] MEDS: D5% in 0.45% NACL w KCl 20 MEQ/1,000 ML MLS IVC SCH (12:10)
[2022-03-06] MEDS: Vancomycin 1,500 MG/265 ML IV.SOLN IVPB SCH (22:59)
[2022-03-07 02:03] LABS: Basophils # 0.1 K/mcL (0.0-0.2); Basophils % 0.4 %; Eosinophils # 0.4 K/mcL (0.0-0.6); Eosinophils % 2.5 %; Hematocrit 20.8 % (35.3-44.9); Hemoglobin 6.8 g/dL (11.5-15.4); Immature Granulocytes % 1.7 % (0-4); Lymphocytes # 1.7 K/mcL (0.6-4.6); Lymphocytes % 12.3 %; Mean Corpuscular HGB Conc 32.7 g/dL (31.6-35.5); Mean Corpuscular Hemoglobin 30.8 pg (28.0-33.3); Mean Corpuscular Volume 94.1 fL (83.0-100.0); Monocytes # 1.1 K/mcL (0.0-1.3); Monocytes % 7.9 %; Neutrophils # 10.4 K/mcL (1.6-8.9); Platelet Count 238 K/mcL (140-400); Red Blood Count 2.21 M/mcL (3.82-4.97); Red Cell Distribution Width 14.6 % (11.5-14.5); Segmented Neutrophils % 75.2 %; White Blood Count 13.8 K/mcL (4.3-11.1)
[2022-03-07] MEDS: D5% in 0.45% NACL w KCl 20 MEQ/1,000 ML MLS IVC SCH ×2 (02:17→16:11)
[2022-03-07 03:13] LABS: Albumin 2.8 g/dL (3.5-5.7); Bilirubin,Total 0.7 mg/dL (0.3-1.0); Calcium 8.2 mg/dL (8.6-10.3); Digoxin 0.7 ng/mL (0.8-2.0); Globulin 2.9 g/dL (2.4-3.5); Magnesium 1.5 mg/dL (1.6-2.6); Potassium 3.9 mEq/L (3.5-5.1); Total Protein 5.7 g/dL (6.4-8.9)
[2022-03-07] MEDS: Ipratropium/Albuterol Neb 3 ML IH SCH ×6 (03:40→23:03)
[2022-03-07] MEDS: *HR* Enoxaparin 40 MG/0.4 ML SYRINGE SQ SCH (05:07)
[2022-03-07] MEDS: Budesonide/Formoterol 160/4.5 1 PUFF INH IH SCH ×2 (07:36→19:43)
[2022-03-07] MEDS: Cefepime HCl 2,000 MG in 0.9 % Sodium Chloride Mini Bag 100 ML IVPB SCH ×2 (08:55→20:09)
[2022-03-07] MEDS: Furosemide 40 MG TABLET PO SCH (08:57)
[2022-03-07] MEDS: allopurinoL 100 MG TABLET PO SCH (08:58)
[2022-03-07] MEDS: metroNIDAZOLE 500 MG TABLET PO SCH ×3 (08:59→20:08)
[2022-03-07] MEDS: Gabapentin 400 MG CAPSULE PO SCH ×3 (08:59→20:08)
[2022-03-07] MEDS: DilTIAZem CD (24hr) 120 MG CAP.ER.24H PO SCH (08:59)
[2022-03-07] MEDS: Isosorbide MONOnitrate (24 HR) 30 MG TAB.ER.24H PO SCH (08:59)
[2022-03-07] MEDS: *HR* Ticagrelor 90 MG TABLET PO SCH ×2 (09:00→20:09)
[2022-03-07] MEDS: Aspirin 81 MG TAB.CHEW PO SCH (09:00)
[2022-03-07] MEDS: Insulin LISPRO 300 UNITS/3 ML VIAL SUBQ SCH ×4 (09:02→20:09)
[2022-03-07 09:20] LABS: Hemoglobin 7.5 g/dL (11.5-15.4)
[2022-03-07] MEDS: Cyanocobalamin (B-12) 1,000 MCG TABLET PO SCH (09:45)
[2022-03-08 03:03] LABS: Basophils # 0.1 K/mcL (0.0-0.2); Basophils % 0.5 %; Eosinophils # 0.3 K/mcL (0.0-0.6); Eosinophils % 2.6 %; Hemoglobin 6.8 g/dL (11.5-15.4); Immature Granulocytes % 2.5 % (0-4); Lymphocytes # 2.1 K/mcL (0.6-4.6); Lymphocytes % 17.5 %; Mean Corpuscular HGB Conc 32.4 g/dL (31.6-35.5); Mean Corpuscular Hemoglobin 30.6 pg (28.0-33.3); Mean Corpuscular Volume 94.6 fL (83.0-100.0); Mean Platelet Volume 9.2 fL (9.4-12.4); Monocytes % 8.1 %; Neutrophils # 8.1 K/mcL (1.6-8.9); Platelet Count 269 K/mcL (140-400); Red Blood Count 2.22 M/mcL (3.82-4.97); Red Cell Distribution Width 14.7 % (11.5-14.5); Segmented Neutrophils % 68.8 %; White Blood Count 11.8 K/mcL (4.3-11.1)
[2022-03-08 03:20] LABS: Calcium 8.2 mg/dL (8.6-10.3); Potassium 3.6 mEq/L (3.5-5.1)
[2022-03-08] MEDS: Ipratropium/Albuterol Neb 3 ML IH SCH ×6 (04:04→23:09)
[2022-03-08] MEDS: *HR* Enoxaparin 40 MG/0.4 ML SYRINGE SQ SCH (05:14)
[2022-03-08] MEDS: Cefepime HCl 2,000 MG in 0.9 % Sodium Chloride Mini Bag 100 ML IVPB SCH ×2 (07:42→19:25)
[2022-03-08] MEDS: D5% in 0.45% NACL w KCl 20 MEQ/1,000 ML MLS IVC SCH ×2 (07:43→22:22)
[2022-03-08] MEDS: Budesonide/Formoterol 160/4.5 1 PUFF INH IH SCH ×2 (07:43→20:11)
[2022-03-08] MEDS: Cyanocobalamin (B-12) 1,000 MCG TABLET PO SCH (07:49)
[2022-03-08] MEDS: allopurinoL 100 MG TABLET PO SCH (07:49)
[2022-03-08] MEDS: Isosorbide MONOnitrate (24 HR) 30 MG TAB.ER.24H PO SCH (07:49)
[2022-03-08] MEDS: Aspirin 81 MG TAB.CHEW PO SCH (07:49)
[2022-03-08] MEDS: Furosemide 40 MG TABLET PO SCH (07:49)
[2022-03-08] MEDS: *HR* Ticagrelor 90 MG TABLET PO SCH ×2 (07:49→19:25)
[2022-03-08] MEDS: metroNIDAZOLE 500 MG TABLET PO SCH ×3 (07:49→19:25)
[2022-03-08] MEDS: Gabapentin 400 MG CAPSULE PO SCH ×3 (07:49→19:25)
[2022-03-08] MEDS: DilTIAZem CD (24hr) 120 MG CAP.ER.24H PO SCH (07:49)
[2022-03-08] MEDS: Insulin LISPRO 300 UNITS/3 ML VIAL SUBQ SCH ×4 (07:50→19:59)
[2022-03-08] MEDS ORDERED: 0.9 % Sodium Chloride 250 ML IVC SCH (09:30)
[2022-03-08] MEDS ORDERED: 0.9 % Sodium Chloride 250 ML ONE (13:43)
[2022-03-08] MEDS: Nicotine 21 MG PATCH.TD24 TD SCH (15:57)
[2022-03-09] MEDS ORDERED: Insulin LISPRO 300 UNITS/3 ML VIAL SUBQ ONE (04:37)
[2022-03-09] MEDS: *HR* Enoxaparin 40 MG/0.4 ML SYRINGE SQ SCH (04:48)
[2022-03-09] MEDS: Ipratropium/Albuterol Neb 3 ML IH SCH ×6 (04:53→23:53)
[2022-03-09 05:02] LABS: Basophils % 0.5 %; Eosinophils # 0.3 K/mcL (0.0-0.6); Eosinophils % 3.5 %; Hematocrit 24.4 % (35.3-44.9); Hemoglobin 7.8 g/dL (11.5-15.4); Immature Granulocytes % 3.1 % (0-4); Lymphocytes # 1.6 K/mcL (0.6-4.6); Lymphocytes % 18.6 %; Mean Corpuscular Hemoglobin 29.4 pg (28.0-33.3); Mean Corpuscular Volume 92.1 fL (83.0-100.0); Monocytes # 0.8 K/mcL (0.0-1.3); Monocytes % 8.9 %; Neutrophils # 5.6 K/mcL (1.6-8.9); Platelet Count 272 K/mcL (140-400); Red Blood Count 2.65 M/mcL (3.82-4.97); Red Cell Distribution Width 15.9 % (11.5-14.5); Segmented Neutrophils % 65.4 %; White Blood Count 8.6 K/mcL (4.3-11.1)
[2022-03-09 05:25] LABS: Calcium 8.4 mg/dL (8.6-10.3); Potassium 3.8 mEq/L (3.5-5.1)
[2022-03-09] MEDS: Budesonide/Formoterol 160/4.5 1 PUFF INH IH SCH ×2 (07:33→20:05)
[2022-03-09] MEDS: Insulin LISPRO 300 UNITS/3 ML VIAL SUBQ SCH ×4 (07:53→21:18)
[2022-03-09] MEDS: Gabapentin 400 MG CAPSULE PO SCH ×3 (08:03→20:22)
[2022-03-09] MEDS: metroNIDAZOLE 500 MG TABLET PO SCH ×3 (08:03→20:22)
[2022-03-09] MEDS: *HR* Ticagrelor 90 MG TABLET PO SCH ×2 (08:04→20:23)
[2022-03-09] MEDS: Furosemide 40 MG TABLET PO SCH (08:04)
[2022-03-09] MEDS: allopurinoL 100 MG TABLET PO SCH (08:04)
[2022-03-09] MEDS: DilTIAZem CD (24hr) 120 MG CAP.ER.24H PO SCH (08:04)
[2022-03-09] MEDS: Isosorbide MONOnitrate (24 HR) 30 MG TAB.ER.24H PO SCH (08:04)
[2022-03-09] MEDS: Aspirin 81 MG TAB.CHEW PO SCH (08:04)
[2022-03-09] MEDS: Cefepime HCl 2,000 MG in 0.9 % Sodium Chloride Mini Bag 100 ML IVPB SCH ×2 (08:04→20:23)
[2022-03-09] MEDS: Cyanocobalamin (B-12) 1,000 MCG TABLET PO SCH (08:04)
[2022-03-09] MEDS: Nicotine 21 MG PATCH.TD24 TD SCH (08:05)
[2022-03-09] MEDS: Ergocalciferol (VIT D2) 50,000 UNIT (1.25MG) CAP PO SCH (08:29)
[2022-03-09] MEDS: D5% in 0.45% NACL w KCl 20 MEQ/1,000 ML MLS IVC SCH (11:01)
[2022-03-09] MEDS: Melatonin 3 MG TABLET PO PRN (23:03)
[2022-03-09] MEDS: *HR* OxyCODONE/APAP 10/325 TABLET PO PRN (23:03)
[2022-03-10] MEDS: D5% in 0.45% NACL w KCl 20 MEQ/1,000 ML MLS IVC SCH (03:07)
[2022-03-10 04:03] LABS: Basophils % 0.4 %; Eosinophils # 0.3 K/mcL (0.0-0.6); Eosinophils % 2.4 %; Hemoglobin 7.8 g/dL (11.5-15.4); Immature Granulocytes % 2.9 % (0-4); Lymphocytes # 2.2 K/mcL (0.6-4.6); Lymphocytes % 21.2 %; Mean Corpuscular HGB Conc 32.5 g/dL (31.6-35.5); Mean Corpuscular Hemoglobin 30.1 pg (28.0-33.3); Mean Corpuscular Volume 92.7 fL (83.0-100.0); Mean Platelet Volume 8.9 fL (9.4-12.4); Monocytes # 0.7 K/mcL (0.0-1.3); Platelet Count 273 K/mcL (140-400); Red Blood Count 2.59 M/mcL (3.82-4.97); Red Cell Distribution Width 15.9 % (11.5-14.5); Segmented Neutrophils % 66.1 %; White Blood Count 10.5 K/mcL (4.3-11.1)
[2022-03-10 04:07] LABS: Neutrophils # 6.9 K/mcL (1.6-8.9)
[2022-03-10 04:23] LABS: Calcium 8.4 mg/dL (8.6-10.3); Potassium 4.1 mEq/L (3.5-5.1)
[2022-03-10] MEDS: Ipratropium/Albuterol Neb 3 ML IH SCH ×6 (04:29→23:38)
[2022-03-10] MEDS: *HR* Enoxaparin 40 MG/0.4 ML SYRINGE SQ SCH (05:52)
[2022-03-10] MEDS: Budesonide/Formoterol 160/4.5 1 PUFF INH IH SCH ×2 (07:41→20:20)
[2022-03-10] MEDS: Insulin LISPRO 300 UNITS/3 ML VIAL SUBQ SCH ×4 (08:11→21:23)
[2022-03-10] MEDS: Nicotine 21 MG PATCH.TD24 TD SCH (08:13)
[2022-03-10] MEDS: allopurinoL 100 MG TABLET PO SCH (08:15)
[2022-03-10] MEDS: Gabapentin 400 MG CAPSULE PO SCH ×3 (08:15→21:20)
[2022-03-10] MEDS: Isosorbide MONOnitrate (24 HR) 30 MG TAB.ER.24H PO SCH (08:15)
[2022-03-10] MEDS: DilTIAZem CD (24hr) 120 MG CAP.ER.24H PO SCH (08:15)
[2022-03-10] MEDS: metroNIDAZOLE 500 MG TABLET PO SCH ×3 (08:15→21:20)
[2022-03-10] MEDS: Cyanocobalamin (B-12) 1,000 MCG TABLET PO SCH (08:16)
[2022-03-10] MEDS: Cefepime HCl 2,000 MG in 0.9 % Sodium Chloride Mini Bag 100 ML IVPB SCH ×2 (08:16→21:15)
[2022-03-10] MEDS: *HR* Ticagrelor 90 MG TABLET PO SCH ×2 (08:16→21:20)
[2022-03-10] MEDS: Aspirin 81 MG TAB.CHEW PO SCH (08:16)
[2022-03-10] MEDS: Furosemide 40 MG TABLET PO SCH (08:16)
[2022-03-10 09:53] LABS: Vancomycin,Random 14 mcg/mL
[2022-03-10 13:58] LABS: C-Reactive Protein 32 mg/L (Less than 10)
[2022-03-10] MEDS: Melatonin 3 MG TABLET PO PRN (21:20)
[2022-03-10] MEDS: *HR* OxyCODONE/APAP 10/325 TABLET PO PRN (21:26)
[2022-03-11] MEDS: Ipratropium/Albuterol Neb 3 ML IH SCH ×6 (03:59→23:28)
[2022-03-11 05:13] LABS: Eosinophils # 0.2 K/mcL (0.0-0.6); Hematocrit 23.8 % (35.3-44.9); Hemoglobin 7.7 g/dL (11.5-15.4); Mean Corpuscular HGB Conc 32.4 g/dL (31.6-35.5); Mean Corpuscular Hemoglobin 30.2 pg (28.0-33.3); Mean Corpuscular Volume 93.3 fL (83.0-100.0); Mean Platelet Volume 9.1 fL (9.4-12.4); Platelet Count 265 K/mcL (140-400); Red Blood Count 2.55 M/mcL (3.82-4.97); Red Cell Distribution Width 15.9 % (11.5-14.5)
[2022-03-11 05:31] LABS: Calcium 8.3 mg/dL (8.6-10.3); Potassium 4.2 mEq/L (3.5-5.1)
[2022-03-11] MEDS: *HR* Enoxaparin 40 MG/0.4 ML SYRINGE SQ SCH (05:58)
[2022-03-11 06:02] LABS: Lymphocytes # 2.6 K/mcL (0.6-4.6); Monocytes # 1.3 K/mcL (0.0-1.3); Neutrophils # 6.8 K/mcL (1.6-8.9); Platelet Estimate Normal (Normal)
[2022-03-11] MEDS: D5% in 0.45% NACL w KCl 20 MEQ/1,000 ML MLS IVC SCH ×2 (06:05→06:06)
[2022-03-11] MEDS: Budesonide/Formoterol 160/4.5 1 PUFF INH IH SCH ×2 (07:30→20:50)
[2022-03-11] MEDS: metroNIDAZOLE 500 MG TABLET PO SCH ×3 (08:17→21:40)
[2022-03-11] MEDS: Cefepime HCl 2,000 MG in 0.9 % Sodium Chloride Mini Bag 100 ML IVPB SCH ×2 (08:17→21:36)
[2022-03-11] MEDS: allopurinoL 100 MG TABLET PO SCH (08:17)
[2022-03-11] MEDS: Isosorbide MONOnitrate (24 HR) 30 MG TAB.ER.24H PO SCH (08:17)
[2022-03-11] MEDS: DilTIAZem CD (24hr) 120 MG CAP.ER.24H PO SCH (08:17)
[2022-03-11] MEDS: Gabapentin 400 MG CAPSULE PO SCH ×3 (08:17→21:39)
[2022-03-11] MEDS: Aspirin 81 MG TAB.CHEW PO SCH (08:17)
[2022-03-11] MEDS: Cyanocobalamin (B-12) 1,000 MCG TABLET PO SCH (08:18)
[2022-03-11] MEDS: Nicotine 21 MG PATCH.TD24 TD SCH (08:18)
[2022-03-11] MEDS: Insulin LISPRO 300 UNITS/3 ML VIAL SUBQ SCH ×4 (08:19→21:47)
[2022-03-11] MEDS: *HR* Ticagrelor 90 MG TABLET PO SCH ×2 (08:19→21:40)
[2022-03-11] MEDS ORDERED: 0.9 % Sodium Chloride 1,000 ML IVC SCH (09:30)
[2022-03-11] MEDS ORDERED: Insulin DETEMIR 100 UNIT/ML X5UNITS SUBQ SCH (21:00)
[2022-03-11] MEDS: Melatonin 3 MG TABLET PO PRN (21:40)
[2022-03-11] MEDS: *HR* OxyCODONE/APAP 10/325 TABLET PO PRN (21:40)
[2022-03-12] MEDS: Ondansetron ODT 4 MG TAB.RAPDIS SL PRN (04:28)
[2022-03-12] MEDS: Ipratropium/Albuterol Neb 3 ML IH SCH ×6 (04:28→23:33)
[2022-03-12] MEDS: *HR* Enoxaparin 40 MG/0.4 ML SYRINGE SQ SCH (05:22)
[2022-03-12] MEDS: Budesonide/Formoterol 160/4.5 1 PUFF INH IH SCH ×2 (08:08→19:50)
[2022-03-12] MEDS: Insulin LISPRO 300 UNITS/3 ML VIAL SUBQ SCH ×4 (08:37→20:21)
[2022-03-12] MEDS: Aspirin 81 MG TAB.CHEW PO SCH (08:39)
[2022-03-12] MEDS: Nicotine 21 MG PATCH.TD24 TD SCH (08:39)
[2022-03-12] MEDS: Gabapentin 400 MG CAPSULE PO SCH ×3 (08:40→20:11)
[2022-03-12] MEDS: Isosorbide MONOnitrate (24 HR) 30 MG TAB.ER.24H PO SCH (08:40)
[2022-03-12] MEDS: DilTIAZem CD (24hr) 120 MG CAP.ER.24H PO SCH (08:41)
[2022-03-12] MEDS: *HR* Ticagrelor 90 MG TABLET PO SCH ×2 (08:41→20:13)
[2022-03-12] MEDS: Cyanocobalamin (B-12) 1,000 MCG TABLET PO SCH (08:41)
[2022-03-12] MEDS: metroNIDAZOLE 500 MG TABLET PO SCH ×3 (08:41→20:13)
[2022-03-12] MEDS: Cefepime HCl 2,000 MG in 0.9 % Sodium Chloride Mini Bag 100 ML IVPB SCH ×2 (08:42→20:07)
[2022-03-12] MEDS: allopurinoL 100 MG TABLET PO SCH (08:45)
[2022-03-12] MEDS: *HR* OxyCODONE/APAP 10/325 TABLET PO PRN (08:47)
[2022-03-12 09:43] LABS: Basophils # 0.1 K/mcL (0.0-0.2); Basophils % 0.4 %; Eosinophils # 0.3 K/mcL (0.0-0.6); Eosinophils % 1.8 %; Hematocrit 24.7 % (35.3-44.9); Hemoglobin 7.9 g/dL (11.5-15.4); Immature Granulocytes % 2.6 % (0-4); Lymphocytes # 2.3 K/mcL (0.6-4.6); Lymphocytes % 16.9 %; Mean Corpuscular Hemoglobin 29.9 pg (28.0-33.3); Mean Corpuscular Volume 93.6 fL (83.0-100.0); Monocytes # 0.6 K/mcL (0.0-1.3); Monocytes % 4.7 %; Platelet Count 285 K/mcL (140-400); Red Blood Count 2.64 M/mcL (3.82-4.97); Red Cell Distribution Width 16.1 % (11.5-14.5); Segmented Neutrophils % 73.6 %; White Blood Count 13.6 K/mcL (4.3-11.1)
[2022-03-12 10:00] LABS: Calcium 8.6 mg/dL (8.6-10.3); Potassium 4.2 mEq/L (3.5-5.1)
[2022-03-12] MEDS ORDERED: Heparin 1,000 UNITS/500 mL 500 ML ONE (11:10)
[2022-03-12] MEDS ORDERED: *HR* Heparin 10,000 UNIT/10 ML VIAL ONE (11:10)
[2022-03-12] MEDS ORDERED: 0.9 % Sodium Chloride 2,000 ML ONE (11:11)
[2022-03-12] MEDS ORDERED: Ondansetron 4 MG/2 ML VIAL ONE (11:46)
[2022-03-12] MEDS ORDERED: *HR* Midazolam HCl 2 MG/2 ML VIAL ONE (11:46)
[2022-03-12] MEDS ORDERED: *HR* FentaNYL (PF) 100 MCG/2 ML VIAL ONE (11:46)
[2022-03-13] MEDS: Ipratropium/Albuterol Neb 3 ML IH SCH ×6 (04:14→22:59)
[2022-03-13 06:18] LABS: Basophils # 0.1 K/mcL (0.0-0.2); Basophils % 0.5 %; Eosinophils # 0.2 K/mcL (0.0-0.6); Eosinophils % 1.7 %; Hematocrit 26.6 % (35.3-44.9); Hemoglobin 8.6 g/dL (11.5-15.4); Immature Granulocytes % 2.3 % (0-4); Lymphocytes # 1.6 K/mcL (0.6-4.6); Lymphocytes % 12.4 %; Mean Corpuscular HGB Conc 32.3 g/dL (31.6-35.5); Mean Corpuscular Hemoglobin 30.8 pg (28.0-33.3); Mean Corpuscular Volume 95.3 fL (83.0-100.0); Mean Platelet Volume 9.3 fL (9.4-12.4); Monocytes # 0.8 K/mcL (0.0-1.3); Monocytes % 5.9 %; Neutrophils # 9.9 K/mcL (1.6-8.9); Platelet Count 300 K/mcL (140-400); Red Blood Count 2.79 M/mcL (3.82-4.97); Red Cell Distribution Width 16.6 % (11.5-14.5); Segmented Neutrophils % 77.2 %; White Blood Count 12.9 K/mcL (4.3-11.1)
[2022-03-13 06:41] LABS: Calcium 8.7 mg/dL (8.6-10.3); Potassium 4.2 mEq/L (3.5-5.1)
[2022-03-13] MEDS: *HR* Enoxaparin 40 MG/0.4 ML SYRINGE SQ SCH (06:54)
[2022-03-13] MEDS: Budesonide/Formoterol 160/4.5 1 PUFF INH IH SCH ×2 (07:44→19:54)
[2022-03-13] MEDS: DilTIAZem CD (24hr) 120 MG CAP.ER.24H PO SCH (08:09)
[2022-03-13] MEDS: allopurinoL 100 MG TABLET PO SCH (08:10)
[2022-03-13] MEDS: Aspirin 81 MG TAB.CHEW PO SCH (08:10)
[2022-03-13] MEDS: metroNIDAZOLE 500 MG TABLET PO SCH ×3 (08:10→20:04)
[2022-03-13] MEDS: *HR* Ticagrelor 90 MG TABLET PO SCH ×2 (08:10→20:05)
[2022-03-13] MEDS: Isosorbide MONOnitrate (24 HR) 30 MG TAB.ER.24H PO SCH (08:10)
[2022-03-13] MEDS: Gabapentin 400 MG CAPSULE PO SCH ×3 (08:10→20:03)
[2022-03-13] MEDS: Furosemide 40 MG TABLET PO SCH (08:11)
[2022-03-13] MEDS: Cefepime HCl 2,000 MG in 0.9 % Sodium Chloride Mini Bag 100 ML IVPB SCH ×2 (08:11→20:04)
[2022-03-13] MEDS: Nicotine 21 MG PATCH.TD24 TD SCH (08:11)
[2022-03-13] MEDS: Cyanocobalamin (B-12) 1,000 MCG TABLET PO SCH (08:11)
[2022-03-13] MEDS: Insulin LISPRO 300 UNITS/3 ML VIAL SUBQ SCH ×4 (08:12→20:03)
[2022-03-14] MEDS: Ipratropium/Albuterol Neb 3 ML IH SCH ×6 (03:37→22:57)
[2022-03-14] MEDS: *HR* Enoxaparin 40 MG/0.4 ML SYRINGE SQ SCH (06:35)
[2022-03-14] MEDS: Budesonide/Formoterol 160/4.5 1 PUFF INH IH SCH ×2 (07:37→19:47)
[2022-03-14] MEDS: Gabapentin 400 MG CAPSULE PO SCH ×3 (11:23→19:58)
[2022-03-14] MEDS: Cyanocobalamin (B-12) 1,000 MCG TABLET PO SCH (11:23)
[2022-03-14] MEDS: Cefepime HCl 2,000 MG in 0.9 % Sodium Chloride Mini Bag 100 ML IVPB SCH ×2 (11:23→20:00)
[2022-03-14] MEDS: allopurinoL 100 MG TABLET PO SCH (11:23)
[2022-03-14] MEDS: Isosorbide MONOnitrate (24 HR) 30 MG TAB.ER.24H PO SCH (11:24)
[2022-03-14] MEDS: metroNIDAZOLE 500 MG TABLET PO SCH ×3 (11:24→19:59)
[2022-03-14] MEDS: Furosemide 40 MG TABLET PO SCH (11:24)
[2022-03-14] MEDS: Insulin LISPRO 300 UNITS/3 ML VIAL SUBQ SCH ×2 (11:25→17:43)
[2022-03-14] MEDS: *HR* Ticagrelor 90 MG TABLET PO SCH ×2 (11:25→19:59)
[2022-03-14] MEDS: DilTIAZem CD (24hr) 120 MG CAP.ER.24H PO SCH (11:25)
[2022-03-14] MEDS: Aspirin 81 MG TAB.CHEW PO SCH (11:25)
[2022-03-14] MEDS: Nicotine 21 MG PATCH.TD24 TD SCH (11:25)
[2022-03-14] MEDS: *HR* OxyCODONE/APAP 10/325 TABLET PO PRN (20:09)
[2022-03-15] MEDS: Ipratropium/Albuterol Neb 3 ML IH SCH ×5 (04:10→20:47)
[2022-03-15] MEDS: *HR* Enoxaparin 40 MG/0.4 ML SYRINGE SQ SCH (05:24)
[2022-03-15] MEDS: Budesonide/Formoterol 160/4.5 1 PUFF INH IH SCH ×2 (07:38→20:47)
[2022-03-15] MEDS: *HR* Ticagrelor 90 MG TABLET PO SCH ×2 (08:19→21:05)
[2022-03-15] MEDS: allopurinoL 100 MG TABLET PO SCH (08:19)
[2022-03-15] MEDS: Aspirin 81 MG TAB.CHEW PO SCH (08:19)
[2022-03-15] MEDS: Gabapentin 400 MG CAPSULE PO SCH ×3 (08:19→21:05)
[2022-03-15] MEDS: DilTIAZem CD (24hr) 120 MG CAP.ER.24H PO SCH (08:20)
[2022-03-15] MEDS: Cyanocobalamin (B-12) 1,000 MCG TABLET PO SCH (08:20)
[2022-03-15] MEDS: Furosemide 40 MG TABLET PO SCH (08:20)
[2022-03-15] MEDS: metroNIDAZOLE 500 MG TABLET PO SCH ×3 (08:20→21:05)
[2022-03-15] MEDS: Cefepime HCl 2,000 MG in 0.9 % Sodium Chloride Mini Bag 100 ML IVPB SCH (08:20)
[2022-03-15] MEDS: Isosorbide MONOnitrate (24 HR) 30 MG TAB.ER.24H PO SCH (08:20)
[2022-03-15] MEDS: Nicotine 21 MG PATCH.TD24 TD SCH (08:34)
[2022-03-15] MEDS: Insulin LISPRO 300 UNITS/3 ML VIAL SUBQ SCH ×5 (08:35→20:31)
[2022-03-15] MEDS: Ondansetron ODT 4 MG TAB.RAPDIS SL PRN (15:16)
[2022-03-15] MEDS: Cefepime HCl 2,000 MG in 0.9 % Sodium Chloride 10 ML IVP SCH (17:55)
[2022-03-15] MEDS: Melatonin 3 MG TABLET PO PRN (21:04)
[2022-03-15] MEDS: *HR* OxyCODONE/APAP 10/325 TABLET PO PRN (21:04)
[2022-03-16] MEDS: Ipratropium/Albuterol Neb 3 ML IH SCH ×5 (00:32→15:41)
[2022-03-16] MEDS: *HR* Enoxaparin 40 MG/0.4 ML SYRINGE SQ SCH (06:10)
[2022-03-16] MEDS: Cefepime HCl 2,000 MG in 0.9 % Sodium Chloride 10 ML IVP SCH (06:10)
[2022-03-16 07:08] VITALS: BP 153/87; PULSE 15; TEMP 97.6
[2022-03-16 07:12] LABS: Basophils # 0.1 K/mcL (0.0-0.2); Basophils % 0.9 %; Eosinophils # 0.2 K/mcL (0.0-0.6); Eosinophils % 1.9 %; Hematocrit 24.6 % (35.3-44.9); Hemoglobin 7.9 g/dL (11.5-15.4); Immature Granulocytes % 1.5 % (0-4); Lymphocytes # 1.8 K/mcL (0.6-4.6); Lymphocytes % 22.3 %; Mean Corpuscular HGB Conc 32.1 g/dL (31.6-35.5); Mean Corpuscular Hemoglobin 30.5 pg (28.0-33.3); Mean Platelet Volume 9.4 fL (9.4-12.4); Monocytes # 0.7 K/mcL (0.0-1.3); Monocytes % 9.1 %; Neutrophils # 5.1 K/mcL (1.6-8.9); Platelet Count 238 K/mcL (140-400); Red Blood Count 2.59 M/mcL (3.82-4.97); Red Cell Distribution Width 16.9 % (11.5-14.5); Segmented Neutrophils % 64.3 %
[2022-03-16] MEDS: Budesonide/Formoterol 160/4.5 1 PUFF INH IH SCH (07:27)
[2022-03-16 07:43] LABS: Calcium 8.3 mg/dL (8.6-10.3); Potassium 3.8 mEq/L (3.5-5.1)
[2022-03-16 08:03] VITALS: O2SAT 98
[2022-03-16] MEDS: Insulin LISPRO 300 UNITS/3 ML VIAL SUBQ SCH ×2 (09:30→12:33)
[2022-03-16] MEDS: Nicotine 21 MG PATCH.TD24 TD SCH (10:06)
[2022-03-16] MEDS: Cyanocobalamin (B-12) 1,000 MCG TABLET PO SCH (10:07)
[2022-03-16] MEDS: *HR* Ticagrelor 90 MG TABLET PO SCH (10:07)
[2022-03-16] MEDS: DilTIAZem CD (24hr) 120 MG CAP.ER.24H PO SCH (10:08)
[2022-03-16] MEDS: Aspirin 81 MG TAB.CHEW PO SCH (10:08)
[2022-03-16] MEDS: Isosorbide MONOnitrate (24 HR) 30 MG TAB.ER.24H PO SCH (10:08)
[2022-03-16] MEDS: allopurinoL 100 MG TABLET PO SCH (10:08)
[2022-03-16] MEDS: metroNIDAZOLE 500 MG TABLET PO SCH ×2 (10:09→14:33)
[2022-03-16] MEDS: Ergocalciferol (VIT D2) 50,000 UNIT (1.25MG) CAP PO SCH (10:09)
[2022-03-16] MEDS: Gabapentin 400 MG CAPSULE PO SCH ×2 (10:09→14:33)
[2022-03-16] MEDS: Furosemide 40 MG TABLET PO SCH (10:09)
== END 2022-03-16 16:23 | disposition home health service (06) | DRG 853 ==
LOC: 3NENU → SUATTDRO 17:51
PROVIDERS: ADMIT Internal Medicine; ATTEND Family Medicine

== ENCOUNTER 2022-03-22 16:56 | Inpatient (IN) ==
[2022-03-22] MEDS ORDERED: Naloxone 0.4 MG/ML INJ IVP PRN (19:21)
[2022-03-22] MEDS ORDERED: Acetaminophen 325 MG TABLET PO PRN (19:21)
[2022-03-22] MEDS ORDERED: Ondansetron ODT 4 MG TAB.RAPDIS SL PRN (19:21)
[2022-03-22] MEDS ORDERED: Melatonin 3 MG TABLET PO PRN (19:21)
[2022-03-22] MEDS ORDERED: 0.9 % Sodium Chloride 1,000 ML IVC SCH (19:30)
[2022-03-22] MEDS ORDERED: Dextrose Gel 15 GM/37.5 ML TUBE PO PRN ×2 (19:31)
[2022-03-22] MEDS ORDERED: *HR* Dextrose 50 % in Water (Syg) 50 ML SYRINGE IVP PRN (19:31)
[2022-03-22] MEDS ORDERED: D5% in Water 1,000 ML IVC PRN (19:31)
[2022-03-22 20:12] LABS: Basophils # 0.1 K/mcL (0.0-0.2); Basophils % 0.7 %; Eosinophils # 0.3 K/mcL (0.0-0.6); Hematocrit 25.9 % (35.3-44.9); Hemoglobin 8.5 g/dL (11.5-15.4); Immature Granulocytes % 0.5 % (0-4); Lymphocytes # 1.9 K/mcL (0.6-4.6); Lymphocytes % 20.1 %; Mean Corpuscular HGB Conc 32.8 g/dL (31.6-35.5); Mean Corpuscular Hemoglobin 30.9 pg (28.0-33.3); Mean Corpuscular Volume 94.2 fL (83.0-100.0); Mean Platelet Volume 9.5 fL (9.4-12.4); Monocytes # 0.8 K/mcL (0.0-1.3); Monocytes % 8.7 %; Neutrophils # 6.2 K/mcL (1.6-8.9); Platelet Count 256 K/mcL (140-400); Red Blood Count 2.75 M/mcL (3.82-4.97); Red Cell Distribution Width 17.6 % (11.5-14.5); White Blood Count 9.2 K/mcL (4.3-11.1)
[2022-03-22 20:28] LABS: Acetaminophen < 10 mcg/mL (10-20); Creatine Kinase 23 Units/L (30-223); Salicylate < 2.5 mg/dL (15.0-30.0)
[2022-03-22 20:36] LABS: Troponin I < 0.03 ng/mL (< 0.04)
[2022-03-22 20:53] LABS: Folate 14.3 ng/mL (3.0-16.0)
[2022-03-22] MEDS ORDERED: Ipratropium/Albuterol Neb 3 ML IH PRN (21:03)
[2022-03-23] MEDS: Insulin LISPRO 300 UNITS/3 ML VIAL SUBQ SCH ×4 (00:31→18:55)
[2022-03-23] MEDS: D5% in Water 1,000 ML IVC SCH ×2 (03:39→18:55)
[2022-03-23 03:56] LABS: Albumin 3.1 g/dL (3.5-5.7); Albumin/Globulin Ratio 0.7 (1.1-2.2); Bilirubin,Total 0.6 mg/dL (0.3-1.0); Calcium 9.1 mg/dL (8.6-10.3); Chol/HDL Ratio 3.5 (0-4.9); Globulin 4.2 g/dL (2.4-3.5); Magnesium 1.6 mg/dL (1.6-2.6); Potassium 3.9 mEq/L (3.5-5.1); Total Protein 7.3 g/dL (6.4-8.9)
[2022-03-23 04:01] LABS: Thyroid Stimulating Hormone 5.666 mcIU/mL (0.340-5.600)
[2022-03-23] MEDS: Aspirin 81 MG TAB.CHEW PO SCH ×2 (09:16→09:21)
[2022-03-23] MEDS: *HR* Ticagrelor 90 MG TABLET PO SCH ×2 (09:16→09:22)
[2022-03-23] MEDS: DilTIAZem CD (24hr) 120 MG CAP.ER.24H PO SCH ×2 (09:16→09:22)
[2022-03-23] MEDS: Cefepime HCl 2,000 MG in 0.9 % Sodium Chloride 10 ML IVP SCH (12:24)
[2022-03-23] MEDS: metroNIDAZOLE 500 MG TABLET PO SCH ×2 (12:24→15:50)
[2022-03-23 15:51] LABS: Bilirubin,Urine Negative (Negative); Blood,Urine Small (Negative); Clarity,Urine Clear (Clear); Color,Urine Light-Yellow (Yellow); Glucose,Urine (UA) Normal (Normal); Ketones,Urine Negative (Negative); Leukocyte Esterase,Urine Trace (Negative); Mucus,Urine Few per lpf (None-Few); Nitrite,Urine Negative (Negative); PH,Urine 6.5 pH Units (5.0-8.0); Protein,Urine 200 mg/dL (Neg-Trace); RBC,Urine 0-3 per hpf (0-3); Specific Gravity,Urine 1.009 (1.010-1.025); Squamous Epithelial Cell,Urine Few per hpf (None-Few); Urobilinogen,Urine Normal (Normal); WBC,Urine 0-3 per hpf (0-3)
[2022-03-23 15:52] LABS: ABG Base Excess -4 mEq/L (-2 to 3); ABG HCO3 19 mEq/L (21-27); ABG Oxygen Saturation 98 % (95-98); ABG PCO2 26 mmHg (35-45); ABG PH 7.48 pH Units (7.32-7.45); ABG PO2 90 mmHg (85-104); ABG TCO2 20 mEq/L (20-26)
[2022-03-23 15:56] LABS: Amphetamine Screen,Urine Negative ng/mL (Cutoff=1000); Barbiturate Screen,Urine Negative ng/mL (Cutoff=200); Benzodiazepines Screen,Urine Negative ng/mL (Cutoff=200); Cannabinoid Screen,Urine Negative ng/mL (Cutoff = 50); Cocaine Screen,Urine Negative ng/mL (Cutoff= 300); Opiate Screen,Urine Negative ng/mL (Cutoff=300); Phencyclidine Screen,Urine Negative ng/mL (Cutoff=25)
[2022-03-23] MEDS: Lactobacillus 1 EACH CAP.SPRINK PO SCH (22:08)
[2022-03-23] MEDS: Clindamycin 600 MG/50 ML 600 MG/50 ML IV.SOLN IVPB SCH (23:55)
[2022-03-24] MEDS: Insulin LISPRO 300 UNITS/3 ML VIAL SUBQ SCH ×4 (01:14→17:18)
[2022-03-24] MEDS: D5% in Water 1,000 ML IVC SCH (05:52)
[2022-03-24] MEDS: Cefepime HCl 2,000 MG in 0.9 % Sodium Chloride 10 ML IVP SCH (08:50)
[2022-03-24] MEDS: Lactobacillus 1 EACH CAP.SPRINK PO SCH ×2 (08:51→22:33)
[2022-03-24] MEDS: Clindamycin 600 MG/50 ML 600 MG/50 ML IV.SOLN IVPB SCH (08:51)
[2022-03-24] MEDS: DilTIAZem CD (24hr) 120 MG CAP.ER.24H PO SCH (08:51)
[2022-03-24] MEDS: Aspirin 81 MG TAB.CHEW PO SCH (08:51)
[2022-03-24] MEDS: Thiamine (B-1) 100 MG TABLET PO SCH ×2 (08:51→22:33)
[2022-03-24 10:52] LABS: Basophils # 0.1 K/mcL (0.0-0.2); Basophils % 0.8 %; Eosinophils # 0.2 K/mcL (0.0-0.6); Eosinophils % 1.9 %; Hematocrit 32.1 % (35.3-44.9); Immature Granulocytes % 0.9 % (0-4); Lymphocytes # 1.3 K/mcL (0.6-4.6); Mean Corpuscular Hemoglobin 30.5 pg (28.0-33.3); Mean Corpuscular Volume 92.5 fL (83.0-100.0); Mean Platelet Volume 9.5 fL (9.4-12.4); Monocytes # 0.8 K/mcL (0.0-1.3); Neutrophils # 6.5 K/mcL (1.6-8.9); Platelet Count 277 K/mcL (140-400); Red Blood Count 3.47 M/mcL (3.82-4.97); Red Cell Distribution Width 16.8 % (11.5-14.5); Segmented Neutrophils % 72.4 %; White Blood Count 8.9 K/mcL (4.3-11.1)
[2022-03-24 10:57] LABS: Hemoglobin 10.6 g/dL (11.5-15.4)
[2022-03-24 11:12] LABS: Calcium 8.5 mg/dL (8.6-10.3); Magnesium 1.3 mg/dL (1.6-2.6); Potassium 3.5 mEq/L (3.5-5.1)
[2022-03-24] MEDS: *HR* Heparin 5,000 UNIT/ML VIAL SQ SCH (17:18)
[2022-03-24] MEDS: *HR* Ticagrelor 90 MG TABLET PO SCH (22:32)
[2022-03-24] MEDS: metroNIDAZOLE 500 MG TABLET PO SCH (22:33)
[2022-03-25] MEDS: Insulin LISPRO 300 UNITS/3 ML VIAL SUBQ SCH ×5 (01:40→21:02)
[2022-03-25 01:50] LABS: Basophils # 0.1 K/mcL (0.0-0.2); Basophils % 0.7 %; Eosinophils # 0.2 K/mcL (0.0-0.6); Eosinophils % 2.9 %; Hematocrit 28.2 % (35.3-44.9); Hemoglobin 9.3 g/dL (11.5-15.4); Lymphocytes # 1.9 K/mcL (0.6-4.6); Mean Corpuscular Hemoglobin 30.6 pg (28.0-33.3); Mean Corpuscular Volume 92.8 fL (83.0-100.0); Mean Platelet Volume 9.5 fL (9.4-12.4); Monocytes # 1.1 K/mcL (0.0-1.3); Monocytes % 12.9 %; Neutrophils # 4.9 K/mcL (1.6-8.9); Platelet Count 269 K/mcL (140-400); Red Blood Count 3.04 M/mcL (3.82-4.97); Red Cell Distribution Width 16.6 % (11.5-14.5); Segmented Neutrophils % 59.5 %; White Blood Count 8.2 K/mcL (4.3-11.1)
[2022-03-25 02:08] LABS: Magnesium 1.8 mg/dL (1.6-2.6); Potassium 3.4 mEq/L (3.5-5.1)
[2022-03-25] MEDS: *HR* Heparin 5,000 UNIT/ML VIAL SQ SCH ×2 (05:51→16:45)
[2022-03-25] MEDS: metroNIDAZOLE 500 MG TABLET PO SCH ×3 (09:23→21:00)
[2022-03-25] MEDS: Isosorbide MONOnitrate (24 HR) 30 MG TAB.ER.24H PO SCH (09:23)
[2022-03-25] MEDS: FLUoxetine 20 MG CAPSULE PO SCH (09:23)
[2022-03-25] MEDS: Cyanocobalamin (B-12) 1,000 MCG TABLET PO SCH (09:23)
[2022-03-25] MEDS: Lactobacillus 1 EACH CAP.SPRINK PO SCH ×2 (09:23→21:00)
[2022-03-25] MEDS: Thiamine (B-1) 100 MG TABLET PO SCH (09:24)
[2022-03-25] MEDS: *HR* Ticagrelor 90 MG TABLET PO SCH ×2 (09:24→20:59)
[2022-03-25] MEDS: Aspirin 81 MG TAB.CHEW PO SCH (09:24)
[2022-03-25] MEDS: allopurinoL 100 MG TABLET PO SCH (09:25)
[2022-03-25] MEDS: Cefepime HCl 2,000 MG in 0.9 % Sodium Chloride 10 ML IVP SCH ×2 (09:26→21:01)
[2022-03-25] MEDS: DilTIAZem CD (24hr) 120 MG CAP.ER.24H PO SCH (09:38)
[2022-03-25] MEDS: Gabapentin 300 MG CAPSULE PO SCH (21:00)
[2022-03-26] MEDS: *HR* Heparin 5,000 UNIT/ML VIAL SQ SCH ×2 (05:44→17:13)
[2022-03-26] MEDS: Gabapentin 300 MG CAPSULE PO SCH (08:03)
[2022-03-26] MEDS: *HR* Ticagrelor 90 MG TABLET PO SCH ×2 (08:03→20:53)
[2022-03-26] MEDS: Cyanocobalamin (B-12) 1,000 MCG TABLET PO SCH (08:03)
[2022-03-26] MEDS: Insulin LISPRO 300 UNITS/3 ML VIAL SUBQ SCH ×4 (08:03→20:54)
[2022-03-26] MEDS: FLUoxetine 20 MG CAPSULE PO SCH (08:04)
[2022-03-26] MEDS: allopurinoL 100 MG TABLET PO SCH (08:04)
[2022-03-26] MEDS: metroNIDAZOLE 500 MG TABLET PO SCH ×3 (08:04→20:53)
[2022-03-26] MEDS: DilTIAZem CD (24hr) 120 MG CAP.ER.24H PO SCH (08:04)
[2022-03-26] MEDS: Isosorbide MONOnitrate (24 HR) 30 MG TAB.ER.24H PO SCH (08:04)
[2022-03-26] MEDS: Aspirin 81 MG TAB.CHEW PO SCH (08:04)
[2022-03-26] MEDS: Lactobacillus 1 EACH CAP.SPRINK PO SCH ×2 (08:04→20:54)
[2022-03-26] MEDS: Thiamine (B-1) 100 MG TABLET PO SCH (08:04)
[2022-03-26 09:41] LABS: Calcium 7.6 mg/dL (8.6-10.3); Magnesium 1.5 mg/dL (1.6-2.6)
[2022-03-26 09:43] LABS: Basophils # 0.1 K/mcL (0.0-0.2); Eosinophils # 0.3 K/mcL (0.0-0.6); Eosinophils % 3.1 %; Hematocrit 28.6 % (35.3-44.9); Immature Granulocytes % 1.4 % (0-4); Lymphocytes # 1.6 K/mcL (0.6-4.6); Lymphocytes % 18.6 %; Mean Corpuscular HGB Conc 31.5 g/dL (31.6-35.5); Mean Corpuscular Hemoglobin 30.3 pg (28.0-33.3); Mean Corpuscular Volume 96.3 fL (83.0-100.0); Mean Platelet Volume 9.7 fL (9.4-12.4); Monocytes # 0.8 K/mcL (0.0-1.3); Monocytes % 9.9 %; Neutrophils # 5.5 K/mcL (1.6-8.9); Platelet Count 269 K/mcL (140-400); Red Blood Count 2.97 M/mcL (3.82-4.97); Red Cell Distribution Width 16.8 % (11.5-14.5); White Blood Count 8.4 K/mcL (4.3-11.1)
[2022-03-26] MEDS ORDERED: Fluconazole 150 MG TABLET PO ONE (11:29)
[2022-03-26] MEDS: 0.9 % Sodium Chloride 1,000 ML IVC SCH (11:42)
[2022-03-26] MEDS: Nystatin POWDER 30 GM BOTTLE TP SCH ×2 (15:39→20:53)
[2022-03-26] MEDS: Cefepime HCl 2,000 MG in 0.9 % Sodium Chloride 10 ML IVP SCH ×2 (20:53→23:18)
[2022-03-26] MEDS: Insulin DETEMIR 100 UNIT/ML X5UNITS SUBQ SCH (21:06)
[2022-03-27] MEDS: 0.9 % Sodium Chloride 1,000 ML IVC SCH ×2 (01:06→13:16)
[2022-03-27] MEDS: Clindamycin 600 MG/50 ML 600 MG/50 ML IV.SOLN IVPB SCH (04:40)
[2022-03-27] MEDS: *HR* Heparin 5,000 UNIT/ML VIAL SQ SCH ×2 (05:23→17:34)
[2022-03-27] MEDS: Insulin LISPRO 300 UNITS/3 ML VIAL SUBQ SCH ×4 (08:11→20:27)
[2022-03-27] MEDS: Nystatin POWDER 30 GM BOTTLE TP SCH ×3 (08:33→20:25)
[2022-03-27] MEDS: Lactobacillus 1 EACH CAP.SPRINK PO SCH ×2 (08:34→20:25)
[2022-03-27] MEDS: Thiamine (B-1) 100 MG TABLET PO SCH (08:34)
[2022-03-27] MEDS: metroNIDAZOLE 500 MG TABLET PO SCH ×3 (08:34→20:26)
[2022-03-27] MEDS: *HR* Ticagrelor 90 MG TABLET PO SCH ×2 (08:34→20:26)
[2022-03-27] MEDS: Aspirin 81 MG TAB.CHEW PO SCH (08:34)
[2022-03-27] MEDS: FLUoxetine 20 MG CAPSULE PO SCH (08:34)
[2022-03-27] MEDS: Gabapentin 300 MG CAPSULE PO SCH (08:34)
[2022-03-27] MEDS: Isosorbide MONOnitrate (24 HR) 30 MG TAB.ER.24H PO SCH (08:34)
[2022-03-27] MEDS: DilTIAZem CD (24hr) 120 MG CAP.ER.24H PO SCH (08:34)
[2022-03-27] MEDS: allopurinoL 100 MG TABLET PO SCH (08:35)
[2022-03-27] MEDS: Cyanocobalamin (B-12) 1,000 MCG TABLET PO SCH (08:35)
[2022-03-27 09:26] LABS: Basophils # 0.1 K/mcL (0.0-0.2); Basophils % 0.7 %; Eosinophils # 0.4 K/mcL (0.0-0.6); Eosinophils % 4.4 %; Hematocrit 27.8 % (35.3-44.9); Hemoglobin 8.9 g/dL (11.5-15.4); Immature Granulocytes % 1.6 % (0-4); Lymphocytes # 1.8 K/mcL (0.6-4.6); Lymphocytes % 22.1 %; Mean Corpuscular Hemoglobin 30.6 pg (28.0-33.3); Mean Corpuscular Volume 95.5 fL (83.0-100.0); Mean Platelet Volume 9.2 fL (9.4-12.4); Monocytes # 0.8 K/mcL (0.0-1.3); Monocytes % 9.5 %; Neutrophils # 5.1 K/mcL (1.6-8.9); Platelet Count 257 K/mcL (140-400); Red Blood Count 2.91 M/mcL (3.82-4.97); Red Cell Distribution Width 16.7 % (11.5-14.5); Segmented Neutrophils % 61.7 %; White Blood Count 8.2 K/mcL (4.3-11.1)
[2022-03-27 12:48] LABS: Calcium 7.8 mg/dL (8.6-10.3); Potassium 4.8 mEq/L (3.5-5.1)
[2022-03-27] MEDS: Cefepime HCl 2,000 MG in 0.9 % Sodium Chloride 10 ML IVP SCH (20:26)
[2022-03-27] MEDS: Insulin DETEMIR 100 UNIT/ML X5UNITS SUBQ SCH (20:27)
[2022-03-28] MEDS: 0.9 % Sodium Chloride 1,000 ML IVC SCH ×2 (02:52→23:22)
[2022-03-28] MEDS: *HR* Heparin 5,000 UNIT/ML VIAL SQ SCH ×2 (05:12→18:31)
[2022-03-28 06:02] LABS: Basophils # 0.1 K/mcL (0.0-0.2); Basophils % 0.6 %; Eosinophils # 0.3 K/mcL (0.0-0.6); Hematocrit 26.4 % (35.3-44.9); Hemoglobin 8.4 g/dL (11.5-15.4); Lymphocytes # 1.6 K/mcL (0.6-4.6); Lymphocytes % 19.5 %; Mean Corpuscular HGB Conc 31.8 g/dL (31.6-35.5); Mean Corpuscular Hemoglobin 30.7 pg (28.0-33.3); Mean Corpuscular Volume 96.4 fL (83.0-100.0); Mean Platelet Volume 9.4 fL (9.4-12.4); Monocytes # 0.8 K/mcL (0.0-1.3); Monocytes % 9.4 %; Neutrophils # 5.4 K/mcL (1.6-8.9); Platelet Count 271 K/mcL (140-400); Red Blood Count 2.74 M/mcL (3.82-4.97); Red Cell Distribution Width 16.7 % (11.5-14.5); Segmented Neutrophils % 64.5 %; White Blood Count 8.4 K/mcL (4.3-11.1)
[2022-03-28 06:47] LABS: Magnesium 1.6 mg/dL (1.6-2.6); Potassium 4.7 mEq/L (3.5-5.1)
[2022-03-28] MEDS: metroNIDAZOLE 500 MG TABLET PO SCH ×3 (09:19→21:11)
[2022-03-28] MEDS: Isosorbide MONOnitrate (24 HR) 30 MG TAB.ER.24H PO SCH (09:19)
[2022-03-28] MEDS: Gabapentin 300 MG CAPSULE PO SCH (09:19)
[2022-03-28] MEDS: DilTIAZem CD (24hr) 120 MG CAP.ER.24H PO SCH (09:19)
[2022-03-28] MEDS: FLUoxetine 20 MG CAPSULE PO SCH (09:19)
[2022-03-28] MEDS: allopurinoL 100 MG TABLET PO SCH (09:20)
[2022-03-28] MEDS: Lactobacillus 1 EACH CAP.SPRINK PO SCH ×2 (09:20→21:11)
[2022-03-28] MEDS: Thiamine (B-1) 100 MG TABLET PO SCH (09:20)
[2022-03-28] MEDS: Aspirin 81 MG TAB.CHEW PO SCH (09:20)
[2022-03-28] MEDS: Cyanocobalamin (B-12) 1,000 MCG TABLET PO SCH (09:20)
[2022-03-28] MEDS: Insulin LISPRO 300 UNITS/3 ML VIAL SUBQ SCH ×4 (09:22→21:13)
[2022-03-28] MEDS: *HR* Ticagrelor 90 MG TABLET PO SCH ×2 (09:27→21:11)
[2022-03-28] MEDS: Nystatin POWDER 30 GM BOTTLE TP SCH ×3 (09:29→21:13)
[2022-03-28] MEDS ORDERED: Morphine Sulfate 2 MG/ML SYRINGE IVP ONE (11:58)
[2022-03-28] MEDS ORDERED: Iopamidol - 370 500 ML MLS IVP ONE (12:10)
[2022-03-28] MEDS ORDERED: *HR* OxyCODONE Immed Rel 5 MG TABLET PO PRN (12:12)
[2022-03-28] MEDS: Insulin DETEMIR 100 UNIT/ML X5UNITS SUBQ SCH (21:12)
[2022-03-28] MEDS: Cefepime HCl 2,000 MG in 0.9 % Sodium Chloride 10 ML IVP SCH (21:12)
[2022-03-29 04:19] LABS: Basophils # 0.1 K/mcL (0.0-0.2); Basophils % 0.6 %; Eosinophils # 0.2 K/mcL (0.0-0.6); Eosinophils % 2.9 %; Hematocrit 25.4 % (35.3-44.9); Hemoglobin 8.1 g/dL (11.5-15.4); Immature Granulocytes % 1.1 % (0-4); Lymphocytes # 1.4 K/mcL (0.6-4.6); Lymphocytes % 17.7 %; Mean Corpuscular HGB Conc 31.9 g/dL (31.6-35.5); Mean Corpuscular Hemoglobin 30.5 pg (28.0-33.3); Mean Corpuscular Volume 95.5 fL (83.0-100.0); Mean Platelet Volume 9.1 fL (9.4-12.4); Monocytes # 0.7 K/mcL (0.0-1.3); Monocytes % 8.8 %; Neutrophils # 5.5 K/mcL (1.6-8.9); Platelet Count 240 K/mcL (140-400); Red Blood Count 2.66 M/mcL (3.82-4.97); Segmented Neutrophils % 68.9 %
[2022-03-29 04:41] LABS: Calcium 8.3 mg/dL (8.6-10.3); Magnesium 1.3 mg/dL (1.6-2.6); Potassium 4.8 mEq/L (3.5-5.1)
[2022-03-29] MEDS: *HR* Heparin 5,000 UNIT/ML VIAL SQ SCH ×2 (05:22→16:50)
[2022-03-29] MEDS: DilTIAZem CD (24hr) 120 MG CAP.ER.24H PO SCH (09:25)
[2022-03-29] MEDS: *HR* Ticagrelor 90 MG TABLET PO SCH ×2 (09:25→20:42)
[2022-03-29] MEDS: Aspirin 81 MG TAB.CHEW PO SCH (09:25)
[2022-03-29] MEDS: allopurinoL 100 MG TABLET PO SCH (09:25)
[2022-03-29] MEDS: Isosorbide MONOnitrate (24 HR) 30 MG TAB.ER.24H PO SCH (09:25)
[2022-03-29] MEDS: Gabapentin 300 MG CAPSULE PO SCH (09:25)
[2022-03-29] MEDS: Cyanocobalamin (B-12) 1,000 MCG TABLET PO SCH (09:25)
[2022-03-29] MEDS: Lactobacillus 1 EACH CAP.SPRINK PO SCH ×2 (09:26→20:33)
[2022-03-29] MEDS: metroNIDAZOLE 500 MG TABLET PO SCH ×3 (09:26→20:33)
[2022-03-29] MEDS: FLUoxetine 20 MG CAPSULE PO SCH (09:26)
[2022-03-29] MEDS: Insulin LISPRO 300 UNITS/3 ML VIAL SUBQ SCH ×4 (09:27→20:49)
[2022-03-29] MEDS: 0.9 % Sodium Chloride 1,000 ML IVC SCH (10:44)
[2022-03-29] MEDS: Cefepime HCl 2,000 MG in 0.9 % Sodium Chloride 10 ML IVP SCH ×2 (11:10→20:34)
[2022-03-29] MEDS: Thiamine (B-1) 100 MG TABLET PO SCH (11:11)
[2022-03-29] MEDS: Nystatin POWDER 30 GM BOTTLE TP SCH ×3 (16:54→20:35)
[2022-03-29] MEDS: Insulin DETEMIR 100 UNIT/ML X5UNITS SUBQ SCH (20:50)
[2022-03-30 01:22] LABS: Basophils # 0.1 K/mcL (0.0-0.2); Basophils % 0.9 %; Eosinophils # 0.2 K/mcL (0.0-0.6); Eosinophils % 3.4 %; Hematocrit 23.8 % (35.3-44.9); Hemoglobin 7.6 g/dL (11.5-15.4); Immature Granulocytes % 1.4 % (0-4); Lymphocytes # 1.9 K/mcL (0.6-4.6); Lymphocytes % 30.1 %; Mean Corpuscular HGB Conc 31.9 g/dL (31.6-35.5); Mean Corpuscular Hemoglobin 30.8 pg (28.0-33.3); Mean Corpuscular Volume 96.4 fL (83.0-100.0); Mean Platelet Volume 9.3 fL (9.4-12.4); Monocytes # 0.9 K/mcL (0.0-1.3); Monocytes % 13.4 %; Neutrophils # 3.3 K/mcL (1.6-8.9); Platelet Count 205 K/mcL (140-400); Red Blood Count 2.47 M/mcL (3.82-4.97); Red Cell Distribution Width 16.7 % (11.5-14.5); Segmented Neutrophils % 50.8 %; White Blood Count 6.4 K/mcL (4.3-11.1)
[2022-03-30 01:43] LABS: Calcium 8.1 mg/dL (8.6-10.3); Potassium 4.4 mEq/L (3.5-5.1)
[2022-03-30] MEDS: *HR* Heparin 5,000 UNIT/ML VIAL SQ SCH ×2 (04:53→19:20)
[2022-03-30] MEDS: Gabapentin 300 MG CAPSULE PO SCH (07:41)
[2022-03-30] MEDS: metroNIDAZOLE 500 MG TABLET PO SCH ×2 (07:42→14:04)
[2022-03-30] MEDS: Lactobacillus 1 EACH CAP.SPRINK PO SCH (07:42)
[2022-03-30] MEDS: Cyanocobalamin (B-12) 1,000 MCG TABLET PO SCH (07:42)
[2022-03-30] MEDS: Thiamine (B-1) 100 MG TABLET PO SCH (07:43)
[2022-03-30] MEDS: Aspirin 81 MG TAB.CHEW PO SCH (07:44)
[2022-03-30] MEDS: FLUoxetine 20 MG CAPSULE PO SCH (07:44)
[2022-03-30] MEDS: Cefepime HCl 2,000 MG in 0.9 % Sodium Chloride 10 ML IVP SCH (07:46)
[2022-03-30] MEDS: Insulin LISPRO 300 UNITS/3 ML VIAL SUBQ SCH ×3 (07:55→16:54)
[2022-03-30] MEDS: Isosorbide MONOnitrate (24 HR) 30 MG TAB.ER.24H PO SCH (08:05)
[2022-03-30] MEDS: allopurinoL 100 MG TABLET PO SCH (08:05)
[2022-03-30] MEDS: DilTIAZem CD (24hr) 120 MG CAP.ER.24H PO SCH (08:06)
[2022-03-30] MEDS: *HR* Ticagrelor 90 MG TABLET PO SCH (08:06)
[2022-03-30] MEDS: Nystatin POWDER 30 GM BOTTLE TP SCH ×2 (08:08→15:35)
[2022-03-30] MEDS ORDERED: Ergocalciferol (VIT D2) 50,000 UNIT (1.25MG) CAP PO SCH (11:48)
[2022-03-30 13:52] LABS: Influenza A PCR Negative (Negative); Influenza B PCR Negative (Negative); Resp. Syncytial Virus PCR Negative (Negative)
[2022-03-30 13:53] LABS: SARS-CoV-2 by PCR (In House) Negative (Negative)
[2022-03-30 16:21] VITALS: BP 176/63; PULSE 52; TEMP 97.8; O2SAT 97
[2022-03-30] MEDS ORDERED: Cefepime HCl 2,000 MG in 0.9 % Sodium Chloride 10 ML IVP SCH (18:00)
== END 2022-03-30 20:01 | DRG 291 ==
LOC: 3ANU → SUATTDRO 18:42
PROVIDERS: ADMIT Internal Medicine; ATTEND Family Medicine